=== PATIENT | female | born 1985 | race Caucasian/White ===

== ENCOUNTER 2023-04-07 14:11 | Outpatient (CLI) | payer OTHER, SELFPAY ==
--- NOTE | ~2023-04-07 | XR_ITS ---
XR hand RT min 3V DATE: 04/07/2023 14:33 INDICATION: Finger pain, especially at third proximal interphalangeal joint TECHNIQUE: 3 views COMPARISON: None FINDINGS: No fracture, dislocation, periosteal reaction or bone destruction, erosive change or chondr ocalcinosis. Joint spaces are preserved. IMPRESSION: Negative Reviewed, dictated and finalized at location A. IMPRESSION: Negative
== END 2023-04-07 14:12 | disposition home or self-care (01) ==
LOC: CHSIMG 14:18
PROVIDERS: PCP Physician Assistant; Visit Provider Physician Assistant
DX: M79.645 Pain in left finger(s) (principal)
CPT/HCPCS: 73130

== ENCOUNTER 2023-12-01 14:31 | Outpatient (CLI) | payer OTHER, SELFPAY ==
--- NOTE | ~2023-12-01 | XR_ITS ---
EXAM: XR foot RT min 3V DATE: 12/01/2023 14:50 HISTORY: 3-4th dorsum pain X 2 days, discoloration, NKI . COMPARISON: None available. FINDINGS: Normal mineralization. No fracture or dislocation. No lytic or blastic lesion. Mild hallux valgus. Mild degenerative change at the first MTP joint. No erosion or periosteal change. Linear 7 m m and 1 mm calcifications or radiopacities project in the soft tissues medial to the right second pro ximal phalange. IMPRESSION: Linear radiopaque foreign bodies versus soft tissue calcifications in the soft tissues medial to the right second proximal phalange. Correlate with pain/tenderness. Reviewed, dictated and finalized at location K. NIC PREPARATION TECHNICIAN IMPRESSION: Linear radiopaque foreign bodies versus soft tissue calcifications in the soft tissues medial to the right second proximal phalange. Correlate with pain/tende rness.
== END 2023-12-01 14:32 | disposition home or self-care (01) ==
LOC: CHSIMG 14:35
PROVIDERS: PCP Physician Assistant; Visit Provider Physician Assistant
DX: M79.671 Pain in right foot (principal)
CPT/HCPCS: 73630

== ENCOUNTER 2025-01-27 18:15 | Emergency (ER) | payer OTHER, SELFPAY ==
--- NOTE | ~2025-01-27 | XR_ITS ---
HISTORY: The lower leg injury, mid tb fib lac COMPARISON: None TECHNIQUE: 2 views of the tibia and fibula were performed FINDINGS: No acute or subacute fracture. Joint spaces are preserved and alignment is maintained. Soft tissues are unremarkable without radiopaque foreign body or significant calcification. Age-appropriate mineralization. IMPRESSION: No acute fracture or radiopaque foreign body, as detailed above. Reviewed, dictated and finalized at location A.
[2025-01-27 18:15] VITALS: BP 141/99; PULSE 103; RESP 20; TEMP 36.8; O2SAT 98
--- OUTSIDE RECORDS SUMMARY | 2025-01-27 18:19 | XMS_ITS | Encounter Summary ---
Author Organization [facility] Address [address] [place] [address] Phone Care Team Providers Care Bus And Trolley Dispatcher Name Role Phone Duc Gore Primary Care Provider [phone] Rubin Kessler MD Unavailable Keri Arreola APRN, HAM FACER Unavailable [phone]- [phone] Brad Thacker MD Unavailable [phone] Reason for Visit * Reason Comments Medication Refill Encounter Details Date Type Department Care Team (Late st Contact Info) Description 04/14/2020 Refill [facility] - [facility] [address] [place] [address] Brad Thacker MD [address] [place] [address] Medication Refill Social History Tobacco Use Types Packs/Day Years Used Date Smoking Tobacco: Every Day Cigarettes Last attempted to quit: 03/06/2019 Smokeless Tobacco: Never Comments:down to half a pack Alcohol Use Standard Drinks/Week Comments No 0 (1 standard drink = 0.6 oz pur e alcohol) Comments No Sex and Gender Information Value Date Recorded Sex Assigned at Female 05/19/2023 1:25 PM CDT Legal Sex Female 11:17 PM CDT Gender Identity Female 05/19/2023 1:25 PM CDT Sexual Orientation Not on file COVID-19 Exposure Response Date Recorded In the last month, have you been in contact with someone who was confirmed or suspected to have Coronavirus / COVID-19? No / Unsure 04/05/2020 2:51 PM CDT documented as of this encounter Plan of Treatment Upcoming Encounters Date Type Department Care Team (Late st Contact Info) Description 02/21/2025 9:00 AM CDT Telemedicine [facility] - [facility] - [place] [address] [place] [address] Keri Hunyh APRN, HAM FACER [address] [place] [address] 04/06/2025 9:00 AM CDT Procedure Visit [facility] - Neurology - [place] [address] [place] [address] Brad Thacker MD [address] [place] [address] documented as of this encounter Visit Diagnoses Not on filedocumented in this encounter Care Teams Bus And Trolley Dispatcher Relationship Specialty Start Date End Date Duc Gore PAC [address] [place] [address] PCP - General Physician Observation Nurse 10/21/16 Rubin Kessler MD [address] [place] [address] Consulting Physician Cardiovascular Disease - Cardiology 05/02/23 Keri Huynh APRN, HAM FACER [address] [place] [address] Nurse Practitioner Advanced Practice Nurse 07/30/22 Brad Thacker MD [address] [place] [address] Consulting Physician Neurology 03/21/23 documented as of this encounter
--- OUTSIDE RECORDS SUMMARY | 2025-01-27 18:19 | XMS_ITS | Encounter Summary ---
Author Organization [facility] Address [address] [place] [address] Phone Care Team Providers Care Musical Instrument Maker Name Role Phone Duc Gore Primary Care Provider [phone] Rubin Kessler MD Unavailable Keri Arreola APRN, PEEL OVEN TENDER Unavailable [phone]- [phone] Brad Thacker MD Unavailable [phone] Reason for Visit * Reason Comments Medication Refill Encounter Details Date Type Department Care Team (Late st Contact Info) Description 01/27/2025 Refill [facility] [address] [place] [id number] Keri Huynh, AUTO SERVICE REPRESENTATIVE, PEEL OVEN TENDER [address] [place] [address] Medication Refill Social History Tobacco Use Types Packs/Day Years Used Date Smoking Tobacco: Former Cigarettes Q uit: 07/06/2020 Smokeless Tobacco: Never Alcohol Use Standard Drinks/Week Comments No 0 (1 standard drink = 0.6 oz pur e alcohol) Comments No Sex and Gender Information Value Date Recorded Sex Assigned at Female 05/19/2023 1:25 PM CDT Legal Sex Female 11:17 PM CDT Gender Identity Female 05/19/2023 1:25 PM CDT Sexual Orientation Not on file documented as of this encounter Plan of Treatment Upcoming Encounters Date Type Department Care Team (Late st Contact Info) Description 02/21/2025 9:[address] [facility] - Neurology - [place] [address] [place] [address] Keri Huynh APRN, PEEL OVEN TENDER [address] [place] [address] 04/06/2025 9:00 AM CDT Procedure Visit [facility] - Neurology - [place] [address] [place] [address] Brad Thacker MD [address] [place] [address] documented as of this encounter Visit Diagnoses Diagnosis Chronic migraine without aura, with intractable migraine, so stated, with status migrainosus documented in this encounter Care Teams Musical Instrument Maker Relationship Specialty Start Date End Date Duc Gore PAC [address] [place] [address] PCP - General Physician Buckle Wire Inserter 10/21/16 Rubin Kessler MD [address] [place] [address] Consulting Physician Cardiovascular Disease - Cardiology 05/02/23 Keri Huynh APRN, PEEL OVEN TENDER [address] [place] [address] Nurse Practitioner Advanced Practice Nurse 07/30/22 Brad Thacker MD [address] [place] [address] Consulting Physician Neurology 03/21/23 documented as of this encounter
--- OUTSIDE RECORDS SUMMARY | 2025-01-27 18:19 | XMS_ITS | Encounter Summary ---
Author Organization [facility] Address [address] [place] [address] Phone Care Team Providers Care Brass Finisher Name Role Phone Duc Gore Primary Care Provider [phone] Rubin Kessler MD Unavailable Keri Arreola APRN, MACHINE STEMMER Unavailable [phone] Brad Thacker MD Unavailable Reason for Visit * Reason Comments Medication Refill Encounter Details Date Type Department Care Team (Late st Contact Info) Description 10/06/2023 Refill [facility] [address] [place] [address] Keri Huynh, DUAL RATE DEALER, MACHINE STEMMER [address] [place] [address] Medication Refill Social History Tobacco Use Types [...] on file documented as of this encounter Miscellaneous Notes * Telephone Encounter - Yue Mendoza RN - 10/07/2023 9:33 AM CST Medication failed the protocol, provider to review and approve the medication order if appropriate. Requested Prescriptions Pending Prescriptions Disp Refills cyclobenzaprine (FLEXERIL) 10 MG Tablet [Pharmacy Med Name: CYCLOBENZAPRINE 10 MG TABLET] 30 Tablet3 Sig: TAKE 1 TABLET BY MOUTH EVERY DAY AT NIGHT Not Delegated - Muscle Relaxants Protocol Failed - 10/06/2023 9:24 PM Failed - This refill cannot be delegated Passed - Visit with relevant provider in past 12 months or upcoming 90 days Recent Visits Date Type Provider Dept 09/12/23 Procedure Visit Brad Thacker MD [facility] Neurology [facility] 06/13/23 Procedure Visit Brad Thacker, [facility] 06/05/23 Office Visit Keri Huynh APRN, CNS [facility] 03/21/23 Procedure Visit Brad Thacker MD [facility] Neurology [facility] 01/28/23 Office Visit Keri Huynh APRN, BRAD [facility] Showing recent visits within past 365 days and meeting all other requirements Future Appointments Date Type Provider Dept 10/30/23 Appointment Keri Huynh APRN, CNS [facility] 12/12/23 Appointment Brad Thacker MD [facility] Showing future appointments within next 90 days and meeting all other requirements [employer] documented in this encounter Plan of Treatment Upcoming Encounters Date Type Department Care Team (Late st Contact Info) Description 02/21/2025 9:00 AM CDT Telemedicine [facility] - [facility]rology - [place] [address] [place] [address] Keri Huynh APRN, MACHINE STEMMER [address] [place] [address] 04/06/2025 9:00 AM CDT Procedure Visit [facility] - Neurology - [place] [address] [place] [address] Brad Thacker MD [address] [place] [address] documented as of this encounter Visit Diagnoses Diagnosis Muscle spasm Spasm of muscle documented in this encounter Care Teams Brass Finisher Relationship Specialty Start Date End Date Duc Gore, PAC [address] [place] [address] PCP - General Physician Ciaio Lumite Injector 10/21/16 Rubin Kessler MD [address] [place] [address] Consulting Physician Cardiovascular Disease - Cardiology 05/02/23 Keri Huynh APRN, MACHINE STEMMER [address] [place] [address] Nurse Practitioner Advanced Practice Nurse 07/30/22 Brad Thacker MD [address] [place] [address] Consulting Physician Neurology 03/21/23 documented as of this encounter
--- OUTSIDE RECORDS SUMMARY | 2025-01-27 18:19 | XMS_ITS | Encounter Summary ---
Author Organization [facility] Address [address] [place] [address] Phone Care Team Providers Care Documentation Engineer Name Role Phone Duc Gore Primary Care Provider [phone] Rubin Kessler MD Unavailable Keri Arreola APRN, ENTERPRISE SECURITY ARCHITECT Unavailable [phone] Brad Thacker MD Unavailable [phone] Reason for Visit * Reason Comments Medication Refill Encounter Details Date Type Department Care Team (Late st Contact Info) Description 03/12/2023 Refill [facility] - [facility] [address] [place] [phone] Keri Huynh, TURRET PUNCH OPERATOR, ENTERPRISE SECURITY ARCHITECT [address] [place] [address] Medication Refill Social History Tobacco Use Types [...] Exposure Response Date Recorded In the last 10 days, have yo u been in contact with someone who was confirmed or suspected to have Coronavirus/COVID-19? No / Unsure 02/20/2023 1:04 PM CDT documented as of this encounter Plan of Treatment Upcoming Encounters Date Type Department Care Team (Late st Contact Info) Description 02/21/2025 9:00 AM CDT [facility] [place] [address] [place] [address] Keri Huynh APRN, ENTERPRISE SECURITY ARCHITECT [address] [place] [address] 04/06/2025 9:00 AM CDT Procedure [facility] - [place] [address] [place] [address] Brad Thacker MD [address] [place] [address] documented as of this encounter Visit Diagnoses Diagnosis Low serum vitamin B12 documented in this encounter Care Teams Documentation Engineer Relationship Specialty Start Date End Date Duc Gore PAC [address] [place] [address] PCP - General Physician Compensation Programs Manager 10/21/16 Rubin Kessler MD [address] [place] [address] Consulting Physician Cardiovascular Disease - Cardiology 05/02/23 Keri Huynh APRN, ENTERPRISE SECURITY ARCHITECT [address] [place] [address] Nurse Practitioner Advanced Practice Nurse 07/30/22 Brad Thacker MD [address] [place] [address] Consulting Physician Neurology 03/21/23 documented as of this encounter
--- OUTSIDE RECORDS SUMMARY | 2025-01-27 18:19 | XMS_ITS | Encounter Summary ---
Author Organization [facility] Address [address] [place] [address] Phone Care Team Providers Care Risk Lead Name Role Phone Duc Gore Primary Care Provider [phone] Rubin Kessler MD Unavailable Keri Arreola APRN, FLIGHT NURSE Unavailable [phone] Brad Thacker MD Unavailable [phone] Reason for Visit * Reason Comments Medication Refill Encounter Details Date Type Department Care Team (Late st Contact Info) Description 05/27/2023 Refill [facility] - Neurology [facility] [address] [place] [id number] Keri Huynh, SIZING MACHINE OPERATOR, FLIGHT NURSE [address] [place] [address] Medication Refill Social History Tobacco Use Types [...] suspected to have Coronavirus/COVID-19? No / Unsure 05/19/2023 9:44 AM CDT documented as of this encounter Miscellaneous Notes * Telephone Encounter - Yue Mendoza RN - 05/27/2023 8:40 AM CDT Medication failed the protocol, provider to review and approve the medication order if appropriate. Requested Prescriptions Pending Prescriptions Disp Refills Aimovig 140 MG/ML Solution Auto-injector [Pharmacy Med Name: AIMOVIG 140 MG/ML AUTOINJECTOR] 1 mL 3 Sig: INJECT 1ML SUBCUTANEOUSLY EVERY 30 DAYS Not Delegated - Off Protocol Failed - 05/27/2023 8:29 AM Failed - This refill cannot be delegated Passed - Visit with relevant provider in past 12 months or upcoming 90 days Recent Visits Date Type Provider Dept 03/21/23 Procedure Visit Brad Thacker MD [facility] Neurology [facility] 01/28/23 Office Visit Keri Huynh APRN, BRAD [facility] Neurology [facility] 07/30/22 Office Visit Keri Huynh APRN, BRAD [facility] Neurology [facility] Showing recent visits within past 365 days and meeting all other requirements Future Appointments Date Type Provider Dept 06/05/23 Appointment Keri Huynh APRN, CNS [facility] Neurology [facility] 06/13/23 Appointment Brad Thacker MD [facility] Neurology [facility] Showing future appointments within next 90 days and meeting all other requirements documented in this encounter Plan of Treatment Upcoming Encounters Date Type Department Care Team (Late st Contact Info) Description 02/21/2025 9:00 AM CDT Telemedicine [facility] - Neurology - [place] [address] [place] [address] Keri Huynh APRN, FLIGHT NURSE [address] [place] [address] 04/06/2025 9:00 AM CDT Procedure Visit [facility] - Neurology - [place] [address] [place] [address] Brad Thacker MD [address] [place] [address] documented as of this encounter Visit Diagnoses Diagnosis Chronic migraine without aura, with intractable migraine, so stated, with status migrainosus documented in this encounter Care Teams Risk Lead Relationship Specialty Start Date End Date Duc Gore PAC [address] [place] [address] PCP - General Physician Manager Automotive 10/21/16 Rubin Kessler MD [address] [place] [address] Consulting Physician Cardiovascular Disease - Cardiology 05/02/23 Keri Huynh, SIZING MACHINE OPERATOR, FLIGHT NURSE [address] [place] [address] Nurse Practitioner Advanced Practice Nurse 07/30/22 Brad Thacker MD [address] [place] [address] Consulting Physician Neurology 03/21/23 documented as of this encounter
--- OUTSIDE RECORDS SUMMARY | 2025-01-27 18:19 | XMS_ITS | Data Portability ---
Author Organization [facility] KIPJojo Address [address] [place] [address] Care Team Providers Care [employer]ic [employer] Name Role Phone BISMARK GORE Primary Care Provider [phone] Assessment Encounter Date Assessment Date Assessment LastModified by Organization Details LastModified Time 09/18/2021 09/18/2021 care management assistant exam normal, first one in almost 4 years. DIscussed 3 mos amenorrhea. WIll do a 10 day course of Provera ( [facility] - in office today) Not available 09/18/2021 12:39:30 Plan of Treatment Reminders Order Date Submit Date Provider Last Modified By Organization Details Last Modified Time Details Appointments ANY 15 2024 10:15A Jessica Gore PA-C Not available Not available Not available ANY 15 2024 10:30A Jessica Gore PA-C Not available Not available Not available Lab CBC 2022 023 [facility], [address] [facility] [address], [place], [address], 02/10/2023 11:15:08 CMP, serum or plasma 2022 023 [facility], [address] [facility], [place], [address], 02/10/2023 11:15:07 lipid panel, serum 2022 023 [facility], [address] [facility], [place], [address], 02/10/2023 11:15:06 HbA1c (hemoglo bin A1c), blood 2022 023 SUMAYA In-Office Order, Internal Use Only DO Not Attach Compendium DO Not Attach Compendium, Do Not Delete/merge, [id number] 02/06/2023 15:55:54 vitamin B12, serum 2022 023 [facility], [address] [facility], [facility] [address], [place], [address], 02/07/2023 10:14:29 cytology report, thin prep, smear or scraping , cervical or vaginal 2020 021 [facility], [address] [facility], [place], [address], 09/22/2021 07:11:29 pregnanc y test, urine 2020 021 [email or web address] In-Office Order, Internal Use Only DO Not Attach Compendium DO Not Attach Compendium, Do Not Delete/merge, [id number] 09/18/2021 12:37:13 Referral cardiolo gist referral 2022 023 SUMAYA Velázquez MD, [address] [place], [address], 05/12/2023 17:06:33 physical therapis t referral 2019 020 SUMA[facility], [address] [facility], [facility] [address], [place], [address], 04/19/2020 17:04:38 Procedures None recorded . Surgeries None recorded . Imaging XR, foot [address] (Registration ), [address] [place], [address], 12/02/2023 11:44:00 XR, ankle 2019 020 SUMAYA Messer ([facility]) Scheduling, [address] [place], [address], 03/20/2020 15:33:11 Medication Orders hydroxyz ine HCl 25 mg tablet 2024 025 [facility]/Pharmacy #[id number], [address] [place], [address], 01/27/2025 11:49:55 buspiron e 5 mg tablet 2024 025 [facility]/Pharmacy #[id number], [address] [place], [address], 01/27/2025 11:49:56 ketorola c 60 mg/2 mL intramus cular solution 2023 024 [email or web address] Not available 12/01/2023 16:16:48 Provera 10 mg tablet 2020 021 [email or web address] Not available 12/01/2023 14:39:36 naproxen 500 mg tablet,d elayed release 2019 020 [email or web address] Not available 01/27/2025 11:29:20 Patient TargetsNo targets recorded. Patient Instructions Encounter Date Encounter Id Patient Instructions Last Modified By Organization Details Last Modified Time 09/18/2021 [id number] secondary amenorrhea: care instructions Not available 09/18/2021 12:09:20 12/01/2023 [id number] A healthy lifestyle: care instructions [email or web address] Not available 12/01/2023 15:06:34 Reason for Referral Physical Therapist Referral for Right Achilles tendinitis Referring Physician: [facility], Encounter Date: 03/20/2020 Behavioral Therapy Coordinator Referral for Mu ltiple premature ventricular complexes Referring Physician: [facility], Encounter Date: 02/06/2023 Results Created Date Observation Date Name Description Value Unit Range Abnormal Flag Note LastModifiedBy Organization Detail LastModifiedTime 09/18/20 21 09/21/2021 IGP, RFX APTIM A HPV ASCU diagnosis: Commen t NEGAT GEORGE FOR INTRA EPITH ELIAL LESIO N OR MALIG HERMELINDO . Not Available [facility] ([facility]) [address] [place], [address], 09/22/2021 07:11:29 09/18/20 21 09/21/2021 IGP, RFX APTIM A HPV ASCU specimen adequacy: Elbert t Satis facto ry for evalu ation . Endoc ervic al and/o r squam ous metap lasti c cells (endo cervi samina compo nent) are prese nt. Not Available [facility] ([facility]) [address] [place], [address], 09/22/2021 07:11:29 09/18/20 21 09/21/2021 IGP, RFX APTIM A HPV ASCU clinician provided ICD10: Elbert hackett Z01.4 19 Not Available [facility] ([facility]) [address] [place], [address], 09/22/2021 07:11:29 09/18/20 21 09/21/2021 IGP, RFX APTIM A HPV ASCU performed by: Toño Acosta (ASCP ) Not Available [facility] ([facility]) [address] [place], [address], 09/22/2021 07:11:29 09/18/20 21 09/21/2021 IGP, RFX APTIM A HPV ASCU . . Not Available [facility] ([facility]) [address] [place], [address], 09/22/2021 07:11:29 09/18/20 21 09/21/2021 IGP, RFX APTIM A HPV ASCU note: Elbert hackett The Pap smear is a scree emiliana test desig juan manuel to aid in the detec tion of marimar ligna nt and malig nant condi tions of the uteri ne cervi x. It is not a diagn ostic proce dure and shoul d not be used as the sole means of detec ting cervi samina cance r. Both false -posi tive and false -nega tive repor ts do occur . Not Available [facility] ([facility]) [address] [place], [address], 09/22/2021 07:11:29 09/18/20 21 09/21/2021 IGP, RFX APTIM A HPV ASCU test methodology: Commen t This liqui d based ThinP rep(R ) pap test was scree juan manuel with the use of an image guide d systjoseph m. Not Available [facility] ([facility]) [address] [place], [address], 09/22/2021 07:11:29 09/18/2009/21/2021 IGP, RFX APTIM A HPV ASCU . Commen t The HPV DNA refle x crite evangelist were not met with this speci men resul t there fore, no HPV testi ng was perfo rmed. Not Available [facility] ([facility]) [address] [facility], [place], [address], 09/22/2021 07:11:29 09/18/2009/18/2021 pregn lamar test, urine HCG negati ve Not Available In-Office Order Internal Use Only DO Not Attach Compendium DO Not Attach Compendium, Do Not Delete/merge, [id number] 09/18/2021 12:14:47 02/07/2002/07/2023 VITAM IN B12 vitamin B12 306 pg/mL 232-12 45 Not Available [facility] ([facility]) [address] [place], [address], 02/07/2023 10:14:29 02/07/20 23 02/07/2023 LIPID PANEL cholesterol, total 166.4 mg/dL 140.0- 200.0 Not Available [facility] ([facility]) [address] [place], [address], 02/10/2023 11:15:06 02/07/20 23 02/07/2023 LIPID PANEL triglyceride s 145 mg/dL <=150 Not Available [facility] ([facility]) [address] [facility] [place], [address], 02/10/2023 11:15:06 02/07/20 23 02/07/2023 LIPID PANEL HDL cholesterol 45.9 mg/dL 40.0-1 00.0 Not Available [facility] ([facility]) [address] [place], [address], 02/10/2023 11:15:06 02/07/20 23 02/07/2023 LIPID PANEL VLDL cholesterol samina 29.00 mg/dL 5.00-4 0.00 Not Available [facility] ([facility]) [address] [place], [address], 02/10/2023 11:15:06 02/07/20 23 02/10/2023 LIPID PANEL LDL chol calc (nih) 95.0 mg/dL 0.0-99 .0 Not Available [facility] ([facility]) [address] [place], [address], 02/10/2023 11:15:06 02/07/20 23 02/06/2023 COMP. METAB OLIC PANEL (14) glucose 85 mg/dL 65-99 ANION GP 15.0 mmol/ L N OSMOL 280.0 mOsM/ L N REFER ENCE RANGE : 275.0 -301. 0 Not Available [facility] ([facility]) [address] [place], [address], 02/10/2023 11:15:07 02/07/20 23 02/06/2023 COMP. METAB OLIC PANEL (14) BUN 11 mg/dL 8-26 Not Available [facility] ([facility]) [address] [place], [address], 02/10/2023 11:15:07 02/07/20 23 02/06/2023 COMP. METAB OLIC PANEL (14) creatinine 0.79 mg/dL 0.50-1 .40 Not Available [facility] ([facility]) [address] [place], [address], 02/10/2023 11:15:07 02/07/20 23 02/06/2023 COMP. METAB OLIC PANEL (14) eGFR 99 mL/mi n/1.7 3 >=60 Not Available [facility] ([facility]) [address] [facility], [place], [address], 02/10/2023 11:15:07 02/07/20 23 02/06/2023 COMP. METAB OLIC PANEL (14) BUN/creatini ne ratio 13.5 Not Available [facility] ([facility]) [address] [facility], [place], [address], 02/10/2023 11:15:07 02/07/20 23 02/06/2023 COMP. METAB OLIC PANEL (14) sodium 141.0 mmol/ L 136.0- 144.0 Not Available [facility] ([facility]) [address] [place], [address], 02/10/2023 11:15:07 02/07/20 23 02/06/2023 COMP. METAB OLIC PANEL (14) potassium 4.1 mmol/ L 3.5-5. 3 Not Available [facility] ([facility]) [address] [place], [address], 02/10/2023 11:15:07 02/07/20 23 02/06/2023 COMP. METAB OLIC PANEL (14) chloride 103 mmol/ l 101-11 1 Not Available [facility] ([facility]) [address] [place], [address], 02/10/2023 11:15:07 02/07/20 23 02/06/2023 COMP. METAB OLIC PANEL (14) carbon dioxide, total 27.1 mmol/ L 21.0-3 2.0 Not Available [facility] ([facility]) [address] [facility], [place], [address], 02/10/2023 11:15:07 02/07/20 23 02/06/2023 COMP. METAB OLIC PANEL (14) calcium 9.5 mg/dL 8.2-10 .0 Not Available [facility] ([facility]) [address] [facility], [place], [address], 02/10/2023 11:15:07 02/07/20 23 02/06/2023 COMP. METAB OLIC PANEL (14) protein, total 6.7 g/dL 6.7-8. 2 Not Available [facility] ([facility]) [address] [facility], [place], [address], 02/10/2023 11:15:07 02/07/20 23 02/06/2023 COMP. METAB OLIC PANEL (14) albumin 4.3 g/dL 3.5-5. 5 Not Available [facility] ([facility]) [address] [facility], [place], [address], 02/10/2023 11:15:07 02/07/20 23 02/06/2023 COMP. METAB OLIC PANEL (14) globulin, total 2.4 g/dL 1.5-4. 5 Not Available [facility] ([facility]) [address] [facility], [place], [address], 02/10/2023 11:15:07 02/07/20 23 02/06/2023 COMP. METAB OLIC PANEL (14) A/G ratio 1.8 Not Available [facility] ([facility]) [address] [facility] [place], [address], 02/10/2023 11:15:07 02/07/20 23 02/06/2023 COMP. METAB OLIC PANEL (14) bilirubin, total 0.2 mg/dL 0.0-1. 2 Not Available [facility] ([facility]) [address] [facility] [place], [address], 02/10/2023 11:15:07 02/07/20 23 02/06/2023 COMP. METAB OLIC PANEL (14) alkaline phosphatase 81.9 IU/L 42.0-1 21.0 Not Available [facility] ([facility]) [address] [facility], [place], [address], 02/10/2023 11:15:07 02/07/20 23 02/06/2023 COMP. METAB OLIC PANEL (14) AST (SGOT) 14.8 U/L 10.0-4 2.0 Not Available [facility] ([facility]) [address] [facility] [place], [address], 02/10/2023 11:15:07 02/07/20 23 02/06/2023 COMP. METAB OLIC PANEL (14) ALT (SGPT) 10.5 U/L 10.0-6 0.0 Not Available [facility] ([facility]) [address] [facility] [place], [address], 02/10/2023 11:15:07 02/07/20 23 02/06/2023 CBC, PLATE LET, NO DIFFE RENTI AL WBC 8.5 K/uL 3.4-10 .8 Not Available [facility] ([facility]) [address] [facility] [place], [address], 02/10/2023 11:15:08 02/07/20 23 02/06/2023 CBC, PLATE LET, NO DIFFE RENTI AL RBC 4.6 M/uL 4.2-5. 4 Not Available [facility] ([facility]) [address] [facility] [place], [address], 02/10/2023 11:15:08 02/07/20 23 02/06/2023 CBC, PLATE LET, NO DIFFE RENTI AL hemoglobin 13.4 g/dL 11.5-1 5.5 Not Available [facility] ([facility]) [address] [facility], [place], [address], 02/10/2023 11:15:08 02/07/20 23 02/06/2023 CBC, PLATE LET, NO DIFFE RENTI AL hematocrit 41.4 % 36.0-4 8.0 Not Available [facility] ([facility]) [address] [facility], [place], [address], 02/10/2023 11:15:08 02/07/20 23 02/06/2023 CBC, PLATE LET, NO DIFFE RENTI AL MCV 90 fL 80-95 Not Available [facility] ([facility]) [address] [place], [address], 02/10/2023 11:15:08 02/07/20 23 02/06/2023 CBC, PLATE LET, NO DIFFE RENTI AL MCH 29 pg 27-32 Not Available [facility] ([facility]) [address] [facility], [place], [address], 02/10/2023 11:15:08 02/07/20 23 02/06/2023 CBC, PLATE LET, NO DIFFE RENTI AL MCHC 32 g/dL 32-36 Not Available [facility] ([facility]) [address] [place], [address], 02/10/2023 11:15:08 02/07/20 23 02/06/2023 CBC, PLATE LET, NO DIFFE RENTI AL RDW 13.6 % 11.5-1 4.5 Not Available [facility] ([facility]) [address] [place], [address], 02/10/2023 11:15:08 02/07/2002/06/2023 CBC, PLATE LET, NO DIFFE RENTI AL platelets 359 K/uL 155-37 9 MPV 10.6 FL 8.9-1 2.7 N Not Available [facility] ([facility]) [address] [facility], [address], 02/10/2023 11:15:08 02/07/20 23 02/06/2023 CBC, PLATE LET, NO DIFFE RENTI AL NRBC 0 % Not Available [facility] ([facility]) [address] [facility], [place], [address], 02/10/2023 11:15:08 02/07/20 23 02/10/2023 CARDI OVASC ULAR REPOR T interpretati on Note Suppl ement al repor t is avail able. Not Available [facility] ([facility]) [address] [facility], [place], [address], 02/10/2023 11:15:08 02/07/20 23 02/10/2023 CARDI OVASC ULAR REPOR T pdf . Not Available [facility] ([facility]) [address] [facility], [place], [address], 02/10/2023 11:15:08 02/07/20 23 02/06/2023 HbA1c (hemo globi n A1c), blood HbA1c 5.0 Not Available In-Office Order Internal Use Only DO Not Attach Compendium DO Not Attach Compendium, Do Not Delete/merge, [id number] 02/06/2023 15:32:15 03/20/20 20 03/20/2020 XR, ankle No observ ation record ed. [address], [address], 03/20/2020 17:34:51 04/07/20 23 04/07/2023 [facility] [address] [place], [address], 04/09/2023 11:36:30 12/01/19 24 12/01/2023 XR, foot No observ [facility]ion [facility] ed[facility] [address] [place], [address], 12/02/2023 14:55:28 Result Notes None recorded. Problems Name Problem SNOMED Code Status Onset Date Resolution Date Notes Provider Name and Address Organization Details Recorded Time Menorrhagia [id number] Active Guzman Joiner MD Attn: Daljit meza,[address], [place], [address], [facility] 6 11:07:09 Problem Notes None recorded. Procedures Surgical History Date Name Laterality Status Provider Name and Address Organization Details Recorded Time 09/18/2021 Date of Last Pap Smear completed Paulina Amanda [facility] 09/24/2021 09:22:27 Imaging Results Imaging Date Name Status LastModified by Organiz ation Details LastModified Time 03/20/2020 XR, ankle completed [address], [address], 03/20/2020 17:34:51 04/07/2023 XR, hand completed [facility] [address] [place], [address], 04/09/2023 11:36:30 12/01/2023 XR, foot completed [facility] [address] [place], [address], 12/02/2023 14:55:28 Procedure Notes None recorded. Medical Equipment None Reported. Allergies Allergen ID Allergen Name Allergen Category Reaction Reaction Severity Criticality Documentation Date Start Date Code Code System Note Provider Name and Address Organization Details Recorded Time Product containin g penicilli n (product) medicatio n hives severe Not available 11/11/2016 [id number] SNOMED Not Available Not Available Not Available Medications Name Sig Start Date Stop Date Status Note LastModified by Organization Details LastModified Time cyclobenzap rine 10 mg tablet TAKE 1 TABLET BY MOUTH EVERY DAY AT NIGHT active Not Available Not Available No t Available medroxyprog esterone 10 mg tablet Take 1 tablet every day by oral route for 10 days. 12/01 completed Not Available Not Available Not Available buspirone 5 mg tablet Take 1 tablet twice a day by oral route for 90 days. 2024 active Not Available Not Available Not Avai lable clindamycin HCl 300 mg capsule 12/01 completed Not Available Not Available Not Available sumatriptan 100 mg tablet 11/11 completed Not Available Not Available Not Available hydrocodone 5 mg-acetamin ophen 325 mg tablet 03/20 completed Not Available Not Available Not Available ondansetron HCl 8 mg tablet Take 1 tablet every 12 hours by oral route for 10 days. 07/10 completed Not Available Not Available Not Available ondansetron HCl 4 mg tablet 07/10 completed Not Available Not Available Not Available rizatriptan 10 mg tablet 03/20 completed Not Available Not Available Not Available clindamycin HCl 150 mg capsule 03/20 completed Not Available Not Available Not Available topiramate 25 mg tablet 11/11 completed Not Available Not Available Not Available acetaminoph en 300 mg-codeine 30 mg tablet 03/20 completed Not Available Not Available Not Available ciprofloxac in 500 mg tablet 11/11 completed Not Available Not Available Not Available sulfamethox azole 800 mg-trimetho prim 160 mg tablet Take 1 tablet every 12 hours by oral route for 10 days. 03/20 completed Not Available Not Available Not Available tramadol 50 mg tablet 03/20 completed Not Available Not Available Not Available propranolol 10 mg tablet 03/20 completed Not Available Not Available Not Available propranolol 40 mg tablet 02/15 completed Not Available Not Available Not Available amitriptyli ne 25 mg tablet 03/20 completed Not Available Not Available Not Available metoclopram mac 5 mg tablet 11/11 completed Not Available Not Available Not Available oseltamivir 75 mg capsule Take 1 capsule twice a day by oral route for 5 days. 03/20 completed Not Available Not Available Not Available naproxen 500 mg tablet,ilya yed release Take 1 tablet twice a day by oral route for 30 days. 2019 active PRN Not Available Not Available Not Avai lable butalbital- aspirin-caf feine 50 mg-325 mg-40 mg capsule 11/11 completed Not Available Not Available Not Available hydroxyzine HCl 25 mg tablet Take 1 tablet 3 times a day by oral route as needed for 30 days. 04/24/ 2025 active Not Available Not Available Not Avai lable levofloxaci n 750 mg tablet Take 1 tablet every day by oral route for 5 days. 02/15 completed Not Available Not Available Not Available methylpredn isolone 4 mg tablets in a dose pack TAKE 6 TABLETS ON DAY 1 DIRECTED ON PACKAGE AND DECREASE BY 1 TAB EACH DAY FOR A TOTAL OF 6 DAYS 01/27 completed Not Available Not Available Not Available ketorolac 60 mg/2 mL intramuscul ar solution Inject 2 mL by intramusc ular route. 2023 active Not Available Not Available Not Avai lable ondansetron 4 mg disintegrat ing tablet active Not Available Not Available N ot Available naratriptan 2.5 mg tablet TAKE 1 TABLET BY MOUTH ONCE NEEDED MIGRAINE. TAKE AT ONSET OF HEADACHE, REPEAT IN 4 HRS IF NEEDED 01/27 completed Not Available Not Available Not Available medroxyprog esterone 150 mg/mL intramuscul ar suspension 11/11 completed Not Available Not Available Not Available metoclopram mac 10 mg tablet 11/11 completed Not Available Not Available Not Available Ventolin HFA 90 mcg/actuati on aerosol inhaler Inhale 2 puffs 4 times a day by inhalatio n route as needed for 30 days. 03/20 completed Not Available Not Available Not Available Sprintec (28) 0.25 mg-0.035 mg tablet TAKE 1 TABLET BY MOUTH EVERY DAY 03/20 completed Not Available Not Available Not Available topiramate 50 mg tablet TAKE 1 TABLET BY MOUTH TWICE A DAY 01/27 completed Not Available Not Available Not Available Botox 200 unit injection active Not Available Not Available No t Available Aimovig Autoinjecto r 70 mg/mL subcutaneou s auto-inject or 03/20 completed Not Available Not Available Not Available Aimovig Autoinjecto r 140 mg/mL subcutaneou s auto-inject or INJECT 1ML SUBCUTANE OUSLY EVERY 30 DAYS active Not Available Not Available No t Available Ubrelvy 50 mg tablet TAKE 1 TABLET BY MOUTH ONCE NEEDED FOR OTHER (MIGRAINE ) FOR UP TO 1 DOSE. active Not Available Not Available No t Available Vitals Date Recorded Body weight Systolic blood pressure Diastolic blood pressure Provider Name and Address Organization Details Last Updated DateTime 09/18/2021 58372.79 g 128 mm[Hg] 80 mm[Hg] SALMA Castrejon [facility] 09/18/2021 11:51:17 Date Recorded Body weight Body mass index (BMI) Body height Oxygen saturation Oxygen saturation in Arterial blood by Pulse oximetry Heart rate Body temperature Systolic blood pressure Diastolic blood pressure Provider Name and Address Organization Details Last Updated DateTime 3 51195.4 5 g 25.9 kg/m2 162.56 cm 98 % 98 % 81 /min 98.2 [degF] 145 mm[Hg] 91 mm[Hg] Olga kevin MA [facility] 3 15:21:12 Date Recorded Body height Body mass index (BMI) Body weight Oxygen saturation Oxygen saturation in Arterial blood by Pulse oximetry Heart rate Systolic blood pressure Diastolic blood pressure Provider Name and Address Organization Details Last Updated DateTime 4 162.56 cm 25.4 kg/m2 63174.6 7 g 98 % 98 % 74 /min 128 mm[Hg] 84 mm[Hg] Gabriela Joiner MA [facility] 4 14:42:35 Date Recorded Body height Body mass index (BMI) Body weight Respiratory rate Oxygen saturation Oxygen saturation in Arterial blood by Pulse oximetry Heart rate Systolic blood pressure Diastolic blood pressure Provider Name and Address Organization Details Last Updated DateTime 5 162.56 cm 25.2 kg/m2 72670.3 6 g 18 /min 100 % 100 % 86 /min 116 mm[Hg] 80 mm[Hg] Lily Pereira [facility] 5 11:31:50 Social History Question Answer Notes LastModified by Organizat ion Details LastModified Time Tobacco Smoking Status Former Smoker Quit 2019 SALMA Castrejon null, [facility] 09/18/2021 11:52:42 What Is Your Level Of Alcohol Consumption? Occasional Rarely Information not available 01/27/2025 What Is Your Level Of Caffeine Consumption? Heavy Information not available 02/15/2019 In The 14 Days Before Symptom Onset, Have You Had Close Contact With A Laboratory-rahul ornelased COVID-19 While That Case Was Ill? No Information not available 09/18/2021 In The 14 Days Before Symptom Onset, Have You Had Close Contact With A Person Who Is Under Investigation For COVID-19 While That Person Was Ill? No Information not available 09/18/2021 Have You Been To An Area Known To Be High Risk For COVID-19? No Information not available 09/18/2021 What Type Of Diet Are You Following? REGULAR Information not available 02/15/2019 Which Illicit Or Recreational Drugs Have You Used? None Information not available 02/15/2019 What Was The Date Of Your Most Recent Tobacco Screening? 01/27/2025 Information not available 01/27/2025 How Many Children Do You Have? 1 Information not available 02/20/2015 What Is Your Current Pack Years? 10-19packyear s Information not available 09/18/2021 What Is Your Relationship Status? Single Information not available 02/20/2015 Do You Have Smoke And Carbon Monoxide Detectors In Your Home? Yes Information not available 02/06/2023 At What Age Did You Start Smoking Tobacco? 18 Information not available 09/18/2021 Are You Passively Exposed To Smoke? Yes Information not available 02/06/2023 How Much Tobacco Do You Smoke? No Information not available 09/18/2021 Do You Feel Stressed (tense, Restless, Nervous, Or Anxious, Or Unable To Sleep At Night)? [id number] Information not available 02/06/2023 Do You Use Any Illicit Or Recreational Drugs? Yes Marijuana Information not available 02/06/2023 Has Tobacco Cessation Counseling Been Provided? No Information not available 09/18/2021 On What Date Was Tobacco Cessation Counseling Provided? 01/27/2025 Information not available 01/27/2025 How Many Years Have You Smoked Tobacco? 15 Information not available 02/15/2019 Do You Or Have You Ever Used Any Other Forms Of Tobacco Or Nicotine? No Information not available 09/18/2021 Sex: Female Functional Status None recorded. Mental Status None recorded. Family History Nothing Reported. Medical History Condition Response Coronary Artery Disease N Kidney Cyst N Blood Diseases N Hyperthyroidism N Blood Transfusion N MRSA N Blood disorders N Emphysema N Blood Clots N COPD N Depression N Pneumonia N Premature N Peripheral Arterial Disease N Edema N TIA N Headaches/Migraines N Anxiety Disorder N Obesity N Infertility N Polyps N Acid Reflux (GERD) N Hematuria N Stroke N Neck Injury N Polio N Hospital Admission other than N Neurologic Disorder N Other Sleep Disorders N Rheumatoid Arthritis N Fibromyalgia N Abdominal Aortic Aneurysm Repair N Kidney Disease N Heart Conditions N Heart Disease/Heart Problems N Hospitalizations N Brain Tumors N Acne N Skin Problems N Eating Disorder N Meningitis N Constipation N Tuberculosis N Cerebral Palsy N Myocardial Infarction N Asthma N Substance Abuse N Peripheral Vascular Disease N Vertigo N Sleep Disorder N Cirrhosis N Pulmonary Embolism N Chicken Pox N Hematologic Disease N Flomax Use Past or Present N Anxiety/Depression N Thyroid Disease N Colon Cancer N Lung Disease N Glaucoma N Developmental or Behavioral Disorders N Bipolar N Pacemaker N Diverticulitis/Diverticulosis N Orthopedic Problems N Anesthesia Complications N Orthotics N Head Injury/Concussion N Congenital Anomalies N Murguia Bite N Chronic Kidney Disease N Endometriosis N Liver Disease N Schizophrenia N Dialysis N Speech Delay N Chronic Obstructive Pulmonary Disease N Parkinson's Disease N Thyroid Problems N GI Problems N Developmental Delay N Anemia N Multiple Sclerosis N Immune System Disorder N Colon Polyps N Heart Attack (MS) N Diabetes N Cardiomyopathy N Blood Transfusions N Heart Problems/Murmur N Eye Trauma N Congestive Heart Failure (CHF) N Valvular Heart Disease N Hyperlipidemia N Double Vision N Abuse/Domestic Violence N Hepatitis B N Lupus N Epilepsy/Seizures N Reflux/GERD N Aneurysm N Heart Disease N Bronchitis N Pre-Eclampsia N Hypertension N Heart Failure N Other N Gout N High Blood Pressure N Atrial Fibrillation N Kidney Stones N Head Trauma/Injury N Congenital Heart Disease N Spine Problems N Gastrointestinal Disease N Lung Mass N Sinusitis N Obstructive Sleep Apnea N Muscle, Joint, or Bone Problems N Autoimmune disease N Vision or Eye Problems N Arthritis N Blood Clot N Cancer N Seasonal allergies N Leg or Foot Ulcers N Raynaud's Disease N Aortic Aneurysm N Arrhythmia N Headaches Y Heart Problems N Ambloypia N Ear or Hearing Problems N Hyperparathyroidism N Migraines N Artificial Joints N Kidney or Bladder Problems N NSAID Use N Encephalitis N PTSD N Ulcers N Prostate Hypertrophy N Bleeding Disorder N AIDS/HIV N Urinary Tract Infection N Back Problems N Allergies N Atrial Flutter N GERD/Reflux N Hepatitis N Autism Spectrum Disorder (ASD) N Breast Cancer N Hernia N Hypothyroidism N Breast Problem N Genitourinary Disease N Deep Vein Thrombosis N Varicose Veins N Cystic Fibrosis N Hearing Loss N Developmental Problems N Carotid Disease N Vitamin D Deficiency N ADHD N Bladder or Kidney Problems N High Cholesterol N Meniers N Valvular Abnormalities N Psychiatric/Mental Health Condition N Organ Transplant N Foot Deformity N Allergies/Hayfever N Dyslipidemia N Hyponatremia N Diabetic Eye Disease N Osteoporosis/Osteopenia N Back Pain N Proteinuria N Mental Illness N Neurological Problems N Ovarian Cancer N Bedwetting N Seizures/Epilepsy N Kidney Failure N Ocular trauma N Diverticulitis N Dementia N Sleep Apnea N Mental Problems N Warfarin Management N Osteoporosis N Gynecological History Statement/Question Response Abnormal Pap N Flow Heavy Date of LMP Sexually Active? N Menses Monthly Y STIs/STDs N Date of Last Pap Smear 09/18/2021 Sexual Problems? N Current Control Method None LMP Approximate Obstetrics History GPAL:G 1 P 1 0 0 1 Type Value Full Term 1 Living 1 Total 1 Past Encounters Encounter ID Performer Location Encounter Start Date Encounter Closed Date Diagnosis/Indication Diagnosis SNOMED-CT Code Diagnosis ICD10 Code Diagnosis Note [id number] NAHEED Zelaya ([place] [address]) [address] [facility] [place] [address] 02/20/2015 15:37:12 02/21/2015 11:32:36 Menorrhagia [id number] NAHEED Zelaya ([place] [address]) [address] [facility] [place] [address] 02/22/2015 13:53:39 02/22/2015 14:56:47 Contraception care management [id number] Jenna Moreno ([place] [address]) [address] [facility] [place] [address] 04/24/2015 11:15:40 04/24/2015 12:28:03 Gynecologic examination [id number] NAHEED Zelaya ([place] [address]) [address] [facility] [place] [address] 05/17/2015 14:09:45 05/17/2015 14:24:05 Contraception care management [id number] MD Jenna Godoy ([place] [address]) [address] [facility] [place] [address] 11/13/2015 10:35:45 11/13/2015 12:28:45 Menorrhagia 024316099 N92.0 [id number] MD Jenna Godoy ([facility]) [address] [facility] [place] [address] 09/24/2016 14:43:31 09/24/2016 15:42:13 Gynecologic examination 13085438 Z01.419 Irregular periods 293731 07 N92.6 [id number] MAIRA Yost [address] [place] [address] 11/11/2016 15:33:51 11/11/2016 16:47:50 Influenza caused by Influenza A virus 171922218 J09.X2 Nausea and vomiting 1693 1999 R11.2 [id number] MAIRA Yost [address] [place] [address] 07/10/2017 15:17:58 07/10/2017 17:13:41 Acute bronchitis 34618434 J20.0 [id number] MD Jenna Godoy ([place] [address]) [address] [facility] [address] [place], [place] [address] [address] 11/27/2017 11:53:10 11/27/2017 15:44:48 Gynecologic examination 71612087 Z01.419 Body mass index 20-24 - normal 308923060 Z68.20 [id number] MAIRA Yost [address] [place] [address] 02/15/2019 11:08:50 02/15/2019 12:36:08 Diabetes mellitus screening 674358660 Z13.1 Adult [facility] examination 620924256 Z00.00 Migraine without aura 56 103441 G43.009 Pain in right knee 95406 31667 43991 M25.162 [id number] MAIRA Yost [address] [place] [address] 03/20/2020 09:39:20 03/20/2020 15:10:03 Right Achilles tendinitis [id number] [id number] M76.61 [id number] MD Jenna Godoy 14 OB [address] [facility] [address] [place], [place] [address], [place] [address] 09/18/2021 11:13:35 09/19/2021 06:32:07 Gynecologic examination 95307375 Z01.419 Amenorrhea 70924323 N91. 2 [id number] Bismark Gore PA-C [facility] [address] [place] [address] 02/06/2023 15:09:05 02/07/2023 10:33:57 Adult health examination 244837015 Z00.00 Multiple p remature ventricular complexes 294430440 I49.3 [id number] Bismark Gore PA-C [facility] [address] [place] [address] 12/01/2023 14:33:49 12/02/2023 11:44:00 Pain in right foot 6951214691 90096 M79.671 Overweight 219134086 E66 .3 [id number] Bismark Gore PA-C [facility] [address] [place] [address] 01/27/2025 11:08:21 01/27/2025 11:51:49 Mixed anxiety and depressive disorder 349688785 F41.8 follow up in 2-3 weeks Health Concerns Section Related Observation LastModified by Organization Detai ls LastModified Time None Recorded Concern Status LastModified by Organization Details LastModified Time None Recorded Advance Directives Directive None Recorded Payers Encounter Date Sequence Insurance Name Policy Number Policy Cespedes Covered Member ID Cespedes Member ID Guarantor Name 03/20/2020 1 [facility] (MEDICAID HMO) [id number] Shara Yaoer [id number] Shara Jenkins Nicolas 09/18/2021 1 MEDICA[place]: [place] [employer] [place] Shara Yaoer [id number] Shara Jenkins Nicolas 09/18/2021 1 R [id number] Vinh Jarrett [id number] Shara Yaoer 02/06/2023 2 [facility] (MEDICAID REPLACEMENT - HMO) [id number] Shara Yaoer [id number] Shara Yaoer 02/06/2023 1 [facility] (PPO) [id number] Vinh Jarrett [id number] Shara Yaoer 12/01/2023 2 [facility] (MEDICAID REPLACEMENT - HMO) [id number] Shara Yaoer [id number] Shara Nicolas 12/01/2023 1 [employer] BENEFIT PLAN MANAGEMENT (PPO) [id number] Vinh Jarrett [id number] Shara Nicolas 01/27/2025 1 [employer] [employer]NAGEMENT (PPO) [id number] Vinh Kolby [id number] Shara Nicolas Notes Date Note Type Note Provider Name and Address Organization Details Recorded Time 03/20/2020 text/html hurt ankle worki ng out doing deadlifts...tweake d the back of rt ankle...swollen and scant bruising... Bismark Gore PA-C Attn: [address] [place], [address], [facility] 03/20/2020 10:37:00 09/18/2021 text/html Annual GYNReport ed bypatient.Menstrua l cycle:Normal menses Urinary symptoms:No hematuria; No incontinence Vulva:No genital lesion Vagina:Normal vaginal discharge Breast:No breast pain; No breast lump; No nipple discharge Sexual complaints:No sexual complaints; No pain during intercourse; Normal libido Menopausal Symptoms:No menopausal symptoms; Normal vaginal lubrication Psychological symptoms:No depression; No anxiety; No PMDD no period since 06/09/21not seen since 11/2017 Guzman Joiner MD Attn: [address] [place], [address], [facility] 09/18/2021 12:39:47 02/06/2023 text/html here for a physical...needs b12 per neurologist...hx of migraines...sister at 42 of cardiac arrythmia Bismark Gore PA-C Attn: [address] [place], [address], [facility] 02/06/2023 15:35:06 12/01/2023 text/html rt foot pain spontaneous had been drinking but still doesnt recall acute injury Bismark Gore PA-C Attn: [address] [facility] [place], [address], [place] [facility] 12/01/2023 15:08:35 01/27/2025 text/html has lost a large number of family members...recently her cat had a similar experience and triggered a panic attacks...hx of anxiety anyway.. Bismark Gore PA-C Attn: Accounting[address], [place], [address], [facility] 01/27/2025 11:51:46 OBGyn Episode Ob Episode Information Episode Created Date Number of Fetuses Patient Bloodtype Patient rh Status Prepregnancy Weight lbs Domestic Partner Domestic Partner Phone Father Name Management And Budget Analyst Status 02/21/20 15 1 CLOSED Fetus Data First Name Last Name Admitted to NICU Weight (g) Sex Living Outcome Pediatric Complications Fetus ID Race Codes Race Delivery Type 2921.13 248 M [id number] Vaginal Lasha Calculation Initial Lasha Date Initial Exam Date Initial Exam Provider Initial Ultrasound Date Last Menstrual Period Date Ultra Sound Weeks Gestation 0 Eighteen To Twenty Week Lasha Update Ultra Sound Date Fundal Height At Umbil Quickening Date Ultra Sound Latest Weeks Gestation Final Lasha Confirmed By Final Lasha Confirmed Date Final Lasha Date Ultra Sound Latest Days Gestation 0 0 Menstrual History Last Menstrual Date Menses Monthly On Bcp Conception Prior Menses Frequency Hcg Plus Date Menarche Onset Age Delivery Information Delivery Date Delivery Type Labor Anesthesia Weeks Gestation Incision Type Labor Labor Length Hrs Delivered By Post Complications Tubal Sterilization Discharge Date Comments 7 Regional-Ep idural 37 HEB Discharge Information Feeding Method Contraceptive Method Maternal HG B and HCT Levels
--- OUTSIDE RECORDS SUMMARY | 2025-01-27 18:19 | XMS_ITS | Encounter Summary ---
Author Organization [facility] Address [address] [place] [address] Phone Care Team Providers Care Basic Acoustic Analyst Name Role Phone Dcu Gore Primary Care Provider [phone] Rubin Kessler MD Unavailable Keri Arreola APRN, HYDRATE THICKENER OPERATOR Unavailable [phone]- [phone] Brad Thacker MD Unavailable [phone] Reason for Visit * Reason Comments Medication Refill Encounter Details Date Type Department Care Team (Late st Contact Info) Description 05/27/2023 Refill [facility] - Neurology [facility] [address] [place] [address] Brad Thacker MD [address] [place] [address] Medication Refill Social History Tobacco [...] Delegated - Muscle Relaxants Protocol Failed - 05/27/2023 8:29 AM Failed - This refill cannot be delegated Passed - Visit with relevant provider in past 12 months or upcoming 90 days Recent Visits Date Type Provider Dept 03/21/23 Procedure Visit Brad Thacker MD [facility] Neurology [facility] 01/28/23 Office Visit Keri Huynh APRN, BRAD [facility] Neurology [facility] 07/30/22 Office Visit Keri Huynh APRN, BRAD [facility] Neurology [facility] Showing recent visits within past 365 days and meeting all other requirements Future Appointments Date Type Provider Dept 06/05/23 Appointment Keri Huynh APRN, CNS [facility] Neurology [facility] 06/13/23 Appointment Brad Thacker MD [facility] Neurology [facility] Showing future appointments within next 90 days and meeting all other requirements documented in this encounter Plan of Treatment Upcoming Encounters Date Type Department Care Team (Late st Contact Info) Description 02/21/2025 9:00 AM CDT Telemedicine [facility] - Neurology - [place] [address] [place] [address] Keri Huynh APRN, HYDRATE THICKENER OPERATOR [address] [place] [address] 04/06/2025 9:00 AM CDT Procedure Visit [facility] - Neurology - [place] [address] [place] [address] Brad Thacker MD [address] [place] [address] documented as of this encounter Visit Diagnoses Diagnosis Muscle spasm Spasm of muscle documented in this encounter Care Teams Basic Acoustic Analyst Relationship Specialty Start Date End Date Duc Gore, PAC [address] [place] [address] PCP - General Physician Tree And Shrub Worker 10/21/16 Rubin Kessler MD [address] [place] [address] Consulting Physician Cardiovascular Disease - Cardiology 05/02/23 Keri Huynh APRN, HYDRATE THICKENER OPERATOR [address] [place] [address] Nurse Practitioner Advanced Practice Nurse 07/30/22 Brad Thacker MD [address] [place] [address] Consulting Physician Neurology 03/21/23 documented as of this encounter
--- OUTSIDE RECORDS SUMMARY | 2025-01-27 18:19 | XMS_ITS | Encounter Summary ---
Author Organization [facility] Address [address] [place] [address] Phone Care Team Providers Care Spa Concierge Name Role Phone Duc Gore Primary Care Provider [phone] Rubin Kessler MD Unavailable Keri Arreola APRN, WASH DRILLER HELPER Unavailable [phone] Brad Thacker MD Unavailable Reason for Visit * Reason Comments Medication Refill Encounter Details Date Type Department Care Team (Late st Contact Info) Description 03/11/2023 Refill [facility] - [facility]rology [facility] [address] [place] [address] Keri Huynh, ROBOTICS MECHANIC, WASH DRILLER HELPER [address] [place] [address] Medication Refill Social History Tobacco Use Types [...] PM CDT documented as of this encounter Miscellaneous Notes * Telephone Encounter - Yue Mendoza RN - 03/11/2023 8:15 AM CDT Medication failed the protocol, provider to review and approve the medication order if appropriate. Requested Prescriptions Pending Prescriptions Disp Refills Topiramate 50 MG Tablet [Pharmacy Med Name: TOPIRAMATE 50 MG TABLET] 180 Tablet 1 Sig: TAKE 1 TABLET BY MOUTH TWICE A DAY Not Delegated - Anticonvulsants Excluding Benzodiazepines Protocol Failed - 03/11/2023 12:01 AM Failed - This refill cannot be delegated Passed - Visit with relevant provider in past 12 months or upcoming 90 days Recent Visits Date Type Provider Dept 01/28/23 Office Visit Keri Huynh APRN, BRAD [facility] 07/30/22 Office Visit Keri Huynh APRN, WASH DRILLER HELPER [facility] Showing recent visits within past 365 days and meeting all other requirements Future Appointments Date Type Provider Dept 03/21/23 Appointment Brad Thacker MD [facility] 04/29/23 Appointment Keri Huynh APRN, CNS [facility] Showing future appointments within next 90 days and meeting all other requirements documented in this encounter Plan of Treatment Upcoming Encounters Date Type Department Care Team (Late st Contact Info) Description 02/21/2025 9:00 AM CDT Telemedicine [facility] - Neurology - [place] [address] [place] [address] Keri Huynh APRN, WASH DRILLER HELPER [address] [place] [address] 04/06/2025 9:00 AM CDT Procedure Visit [facility] - Neurology - [place] [address] [place] [address] Brad Thacker MD [address] [place] [address] documented as of this encounter Visit Diagnoses Diagnosis Chronic migraine without aura, with intractable migraine, so stated, with status migrainosus documented in this encounter Care Teams Spa Concierge Relationship Specialty Start Date End Date Duc Gore [facility] [address] [place] [address] PCP - General Physician Director On Air 10/21/16 Rubin Kessler MD [address] [place] [address] Consulting Physician Cardiovascular Disease - Cardiology 05/02/23 Keri Huynh APRN, WASH DRILLER HELPER [address] [place] [address] Nurse Practitioner Advanced Practice Nurse 07/30/22 Brad Thacker MD [address] [place] [address] Consulting Physician Neurology 03/21/23 documented as of this encounter
--- OUTSIDE RECORDS SUMMARY | 2025-01-27 18:19 | XMS_ITS | Encounter Summary ---
Author Organization [facility] Address [address] [place] [address] Phone Care Team Providers Care Emergency Care Attendant Name Role Phone KaylaDuc srping Primary Care Provider [phone] Rubin Kessler MD Unavailable Keri Arreola APRN, MOLD CLEANING AND STORAGE SUPERVISOR Unavailable [phone]- [phone] Brad Thacker MD Unavailable [phone] Reason for Visit * Reason Onset Date Comments Prior Authorization 01/11/2025 Encounter Details Date Type Department Care Team (Late st Contact Info) Description 01/11/2025 Telephone [facility] Specialty [address] [place] [address] Keri Huynh, COMMANDING OFFICER GARAGE, MOLD CLEANING AND STORAGE SUPERVISOR [address] [place] [address] Prior Authorization Social History Tobacco Use Types Packs/Day Years [...] encounter Miscellaneous Notes * Telephone Encounter - Belén Abdul - 01/11/2025 1:30 PM CDT Just a reminder that this pt get her Botox through the specialty pharmacy [facility] I believe. I am looking for a number to call them and make sure she has an auth on file or to start one. If you haveanything please let me know. Thanks Belén Walker [facility] Specialty documented in this encounter Plan of Treatment Upcoming Encounters Date Type Department Care Team (Late st Contact Info) Description 02/21/2025 9:00 AM CDT Telemedicine [facility] - Neurology - [place] [address] [place] [address] Keri Huynh APRN, MOLD CLEANING AND STORAGE SUPERVISOR [address] [place] [address] 04/06/2025 9:00 AM CDT Procedure Visit [facility] - Neurology - [place] [address] [place] [address] Brad Thacker MD [address] [place] [address] documented as of this encounter Visit Diagnoses Not on filedocumented in this encounter Care Teams Emergency Care Attendant Relationship Specialty Start Date End Date Duc Gore PAC [address] [place] [address] PCP - General Physician Commercial Lines Underwriter 10/21/16 Rubin Kessler MD [address] [place] [address] Consulting Physician Cardiovascular Disease - Cardiology 05/02/23 Keri Huynh APRN, MOLD CLEANING AND STORAGE SUPERVISOR [address] [place] [address] Nurse Practitioner Advanced Practice Nurse 07/30/22 Brad Thacker MD [address] [place] [address] Consulting Physician Neurology 03/21/23 documented as of this encounter
--- OUTSIDE RECORDS SUMMARY | 2025-01-27 18:19 | XMS_ITS | Clinical Summary ---
Author Organization [facility] Address [address] [place] [address] Phone Care Team Providers Care Nurse Instructor Name Role Phone Duc Gore Primary Care Provider [phone] Rubin Kessler MD Unavailable Unavai Keri Yadav APRN, FOREPART ROUNDER Unavailable [phone] Brad Thacker MD Unavailable [phone] Allergies Active Allergy Reactions Criticality Noted Date Comments Ibuprofen Unknown Penicillins Hives 12/27/2015 Medications ondansetron (ZOFRAN-ODT) 4 MG TABLET DISPERSIBLEIndi cations:Chronic migraine without aura, with intractable migraine, so stated, with status migrainosus Take 1 Tablet by mouth every 8 hours as needed for Nausea - 1st line. 10 Tablet 3 01/29/20 23 Active Topiramate 50 MG TabletIndicatio ns:Chronic migraine without aura, with intractable migraine, so stated, with status migrainosus TAKE 1 TABLET BY MOUTH TWICE A DAY 180 Tablet 1 03/11/20 23 Active Ubrogepant (Ubrelvy) 50 MG TabletIndicatio ns:Chronic migraine without aura, with intractable migraine, so stated, with status migrainosus Take 1 Tablet by mouth once as needed for Other (migraine) for up to 1 dose. 16 Tablet 2 06/05/20 23 Active methylPREDNISol one (MEDROL DOSPACK) 4 MG Tablet Therapy Pack Use as per instructions on package. 21 Tablet 11/25/19 24 Active Erenumab-aooe (Aimovig) 140 MG/ML Solution Auto-injectorIn dications:Chron ic migraine without aura, with intractable migraine, so stated, with status migrainosus INJECT 1ML SUBCUTANEOUSLY EVERY 30 DAYS 1 mL 3 06/29/20 24 Active cyclobenzaprine (FLEXERIL) 10 MG TabletIndicatio ns:Muscle spasm TAKE 1 TABLET BY MOUTH EVERY DAY AT NIGHT 30 Tablet 3 10/01/20 24 Active Botox 200 units Recon SolnIndications :Chronic migraine without aura, with intractable migraine, so stated, with status migrainosus 155 Units by Intramuscular route every 90 days. 1 Each 3 06/01/20 24 025 Discontin ued(Med List Clean Up) Hospital, Clinic, or Other Facility Administered Medication Ordered Dose Route Frequency Start Date End Date Status botulinum Toxin Type A (BOTOX) injection 200 UnitsIndications:Chronic migraine without aura, with intractable migraine, so stated, with status migrainosus 200 Units IJ ONCE 01/14/2025 01/14/2025 Ended Active Problems Problem Noted Date Diagnosed Date Chronic migraine without aur a, with intractable migraine, so stated, with status migrainosus 04/28/2019 Migraine 03/27/2018 Encounters Date Type Department Care Team Description 01/27/2025 Refill [facility] Neurology [facility] [address] [place] [address] Keri Huynh APRN, FOREPART ROUNDER Medication Refill 01/14/2025 9:15 AM CDT Procedure Visit [facility] Neurology [facility] [address] [place] [address] Brad Thacker MD Chronic migraine without aura, with intractable migraine, so stated, with status migrainosus Discharge Disposition: Discharged to home or Selfcare 01/14/2025 Travel 01/11/2025 Telephone [facility] [address] [place] [address] Keri Huynh APRN, FOREPART ROUNDER Prior Authorization 12/31/2024 Telephone [facility] Neurology [facility] [address] [place] [address] Brad Thacker MD 11/09/2024 Telephone [facility] - Neurology - [place] [address] [place] [address] Keri Huynh APRN, FOREPART ROUNDER from Last 3 Months Family History Medical History Relation Name Comments Heart Attack Brother Cancer Father Kidney Cancer Father Heart Attack Maternal Grandfather Heart Disease Maternal Grandmother Ovarian Cancer Mother Cancer Paternal Grandfather Cancer Paternal Grandmother Relation Name Status Comments Brother Father Maternal Grandfather Maternal Grandmother Mother Paternal Grandfather Paternal Grandmother Social History Tobacco Use Types Packs/Day Years Used Date Smoking Tobacco: Former Cigarettes Q uit: 07/06/2020 Smokeless Tobacco: Never Tobacco Cessation:Counseling Given: Not Answered Alcohol Use Standard Drinks/Week Comments No 0 (1 standard drink = 0.6 oz pur e alcohol) Comments No Sex and Gender Information Value Date Recorded Sex Assigned at Female 05/19/2023 1:25 PM CDT Legal Sex Female 11:17 PM CDT Gender Identity Female 05/19/2023 1:25 PM CDT Sexual Orientation Not on file Last Filed Vital Signs Vital Sign Reading Time Taken Comments Blood Pressure 122/76 10/30/2023 11:34 AM RADIO REPAIRER Pulse 86 10/30/2023 11:34 AM RADIO REPAIRER Temperature 36.2 C (97.1 F) 10/30/2023 11:34 AM RADIO REPAIRER Respiratory Rate 20 10/30/2023 11:34 AM RADIO REPAIRER Oxygen Saturation 100% 10/30/2023 11:34 AM RADIO REPAIRER Inhaled Oxygen Concentration - - Weight 67.6 kg (149 lb) 10/30/2023 11:34 AM RADIO REPAIRER Height 165.1 cm (5' 5 ) 10/30/2023 11:34 AM RADIO REPAIRER Body Mass Index 24.79 10/30/2023 11:34 AM RADIO REPAIRER Plan of Treatment Upcoming Encounters Date Type Department Care Team (Late st Contact Info) Description 02/21/2025 9:00 AM CDT [facility] [place] [address] [place] [address] Keri Huynh APRN, FOREPART ROUNDER [address] [place] [address] 04/06/2025 9:00 AM CDT Procedure Visit [facility] - Neurology [facility] [address] [place] [address] Brad Thacker MD [address] [place] [address] Health Maintenance Due Date Last Done Comments Hepatitis C Virus (HCV) Screening 1985 TdaP Immunization 1985 Hepatitis B Immunization (1 of 3 - 19+ 3-dose series) 2004 Pap Smear 2006 Cervical Cancer Screening (CCS) 2015 HPV/Cotest 2015 SARS-COV-2 Immunization ( season) 2024 Influenza Immunization (Seas on Ended) 2025 Respiratory Syncytial Virus (RSV) Immunization (Adult) (1 - 1-dose 75+ series) 2060 Meningococcal Immunization (ACWY) Aged Out No longer eligible based on patient's age to complete this topic Pneumococcal Immunization Combined Aged Out No longer eligible based on patient's age to complete this topic Rotavirus Immunization Aged Out No lo nger eligible based on patient's age to complete this topic Procedures Procedure Name Priority Date/Time Associated Diagnosis Comments CHEMODENERV MUSCLE(S) BILAT FACIAL/TRIGEMINAL/CERV SPINE Routine 01/14/2025 9:15 AM CDT Chronic migraine without aura, with intractable migraine, so stated, with status migrainosus OPHTHALMOLOGY CONSULT 01/03/2025 12:00 AM CDT from Last 3 Months Results * CHEMODENERV MUSCLE(S) BILAT FACIAL/TRIGEMINAL/CERV SPINE (01/14/2025 9:15 AM CDT) Narrative Brad Thacker MD - 01/14/2025 9:15 AM CDT Brad Thacker MD 01/14/2025 2:28 PM Shara presents for administration of botox for treatment of chronic migraines. Frequency of headaches compared to pre-Botox: significantly improved Function since receiving Botox: significantly improved Wasted amount of Botox: 45 Her skin was prepped with an alcohol wipe. Botox was diluted with 200 units into 4 ml saline and administered with a 30 gauge 1/2 inch needle to the following sites: To the corrugators 10 units was divided into two sites. To the procerus 5 units was admistered to 1 site To the frontalis 20 units was divided into 4 sites To the temporalis 40 units was divided into 8 sites To the Occipitalis 30 units was divided into 6 sites To the cervical paraspinals 20 units divided into 4 sites To the trapezius 30 units divided into 6 sites. This procedure has been fully reviewed with the patient and written informed consent has been obtained. Patient tolerated the procedure with no complications. Brad Thacker MD [place] - SURGERY Final Result * OPHTHALMOLOGY CONSULT (01/03/2025 12:00 AM CDT) 01/03/2025 Provider Scan GENERIC SCAN ORDERS CONSULT Yoon lorenzo Result SCAN from Last 3 Months Insurance CIG CIGNA Care Teams Nurse Instructor Relationship Specialty Start Date End Date Duc Gore PAC [address] [place] [address] PCP - General Physician Crew Leader/Control Room Operator 10/21/16 Rubin Kessler MD [address] [place] [address] Consulting Physician Cardiovascular Disease - Cardiology 05/02/23 Keri Huynh APRN, FOREPART ROUNDER [address] [place] [address] Nurse Practitioner Advanced Practice Nurse 07/30/22 Brad Thacker MD [address] [place] [address] Consulting Physician Neurology 03/21/23
--- OUTSIDE RECORDS SUMMARY | 2025-01-27 18:20 | XMS_ITS | Encounter Summary ---
Author Organization [facility] Address [address] [place] [address] Phone Care Team Providers Care Manager Sustainability Name Role Phone Duc Gore Primary Care Provider [phone] Rubin Kessler MD Unavailable Keri Arreola APRN, HEAD BUCKER Unavailable [phone]- [phone] rBad Thacker MD Unavailable [phone] Reason for Visit * Reason Comments Medication Refill Encounter Details Date Type Department Care Team (Late st Contact Info) Description 12/24/2020 [facility]ill [facility] [address] [place] [address] Brad Thacker MD [address] [place] [address] Medication Refill Social History Tobacco [...] Info) Description 02/21/2025 9:00 AM CDT Telemedicine [facility] - Neurology - [place] [address] [place] [address] Keri Huynh APRN, HEAD BUCKER [address] [place] [address] 04/06/2025 9:00 AM CDT Procedure Visit [facility] - Neurology - [place] [address] [place] [address] Brad Thacker MD [address] [place] [address] documented as of this encounter Visit Diagnoses Diagnosis Muscle spasm Spasm of muscle documented in this encounter Care Teams Manager Sustainability Relationship Specialty Start Date End Date Duc Gore [facility] [address] [place] [address] PCP - General Physician Chemistry Specialist 10/21/16 Rubin Kessler MD [address] [place] [address] Consulting Physician Cardiovascular Disease - Cardiology 05/02/23 Keri Huynh APRN, HEAD BUCKER [address] [place] [address] Nurse Practitioner Advanced Practice Nurse 07/30/22 Brad Thacker MD [address] [place] [address] Consulting Physician Neurology 03/21/23 documented as of this encounter
--- OUTSIDE RECORDS SUMMARY | 2025-01-27 18:20 | XMS_ITS | Encounter Summary ---
Author Organization [facility] Address [address] [place] [address] Phone Care Team Providers Care Tour Director Name Role Phone Duc Gore Primary Care Provider [phone] Rubin Kessler MD Unavailable Keri Arreola APRN, MATCHER OFFBEARER Unavailable [phone]- [phone] Brad Thacker MD Unavailable [phone] Reason for Visit * Reason Comments Medication Refill Encounter Details Date Type Department Care Team (Late st Contact Info) Description 02/19/2021 Refill [facility] Neu[facility] [address] [place] [address] Brad Thacker MD [address] [place] [address] Medication Refill Social History Tobacco [...] Description 02/21/2025 9:00 AM CDT Telemedicine [facility] - Neurology - [place] [address] [place] [address] Keri Huynh APRN, MATCHER OFFBEARER [address] [place] [address] 04/06/2025 9:00 AM CDT Procedure Visit [facility] - Neurology - [place] [address] [place] [address] Brad Thacker MD [address] [place] [address] documented as of this encounter Visit Diagnoses Diagnosis Muscle spasm Spasm of muscle documented in this encounter Care Teams Tour Director Relationship Specialty Start Date End Date Duc Gore [facility] [address] [place] [address] PCP - General Physician Loom Checker 10/21/16 Rubin Kessler MD [address] [place] [address] Consulting Physician Cardiovascular Disease - Cardiology 05/02/23 Keri Huynh APRN, MATCHER OFFBEARER [address] [place] [address] Nurse Practitioner Advanced Practice Nurse 07/30/22 Brad Thacker MD [address] [place] [address] Consulting Physician Neurology 03/21/23 documented as of this encounter
--- OUTSIDE RECORDS SUMMARY | 2025-01-27 18:20 | XMS_ITS | Encounter Summary ---
Author Organization [facility] Address [address] [place] [address] Phone Care Team Providers Care Information Officer Name Role Phone Duc Gore Primary Care Provider Rubin Kessler MD Unavailable Keri Arreola APRN, HYDRAULIC TESTER Unavailable [phone]- [phone] Brad Thacker MD Unavailable [phone] Reason for Visit * Reason Comments Medication Refill Encounter Details Date Type Department Care Team (Late Contact Info) Description 09/20/2020 Refill [facility] [address] [place] [address] Brad Thacker MD [address] [place] [address] Medication Refill Social History Tobacco [...] Info) Description 02/21/2025 9:00 AM CDT Telemedicine [facility] - Neurology - [place] [address] [place] [address] Keri Huynh APRN, HYDRAULIC TESTER [address] [place] [address] 04/06/2025 9:00 AM CDT Procedure Visit [facility] - Neurology - [place] [address] [place] [address] Brad Thacker MD [address] [place] [address] documented as of this encounter Visit Diagnoses Diagnosis Muscle spasm Spasm of muscle documented in this encounter Care Teams Information Officer Relationship Specialty Start Date End Date Duc Gore [facility] [address] [place] [address] PCP - General Physician Awnings Mechanic 10/21/16 Rubin Kessler MD [address] [place] [address] Consulting Physician Cardiovascular Disease - Cardiology 05/02/23 Keri Huynh APRN, HYDRAULIC TESTER [address] [place] [address] Nurse Practitioner Advanced Practice Nurse 07/30/22 Brad Thacker MD [address] [place] [address] Consulting Physician Neurology 03/21/23 documented as of this encounter
--- OUTSIDE RECORDS SUMMARY | 2025-01-27 18:20 | XMS_ITS | Encounter Summary ---
Author Organization [facility] Address [address] [place] [address] Phone Care Team Providers Care Fabric Finisher Name Role Phone Duc Gore Primary Care Provider [phone] Rubin Kessler MD Unavailable Keri Arreola APRN, BILLING ANALYST Unavailable [phone]- [phone] Brad Thacker MD Unavailable [phone] Reason for Visit * Reason Comments Medication Refill Encounter Details Date Type Department Care Team (Late Contact Info) Description 05/20/2020 Refill [facility]rology [facility] [address] [place] [address] Brad Thacker MD [address] [place] [address] Medication Refill Social History Tobacco [...] Info) Description 02/21/2025 9:00 AM CDT Telemedicine [facility] - Neurology - [place] [address] [place] [address] Keri Huynh APRN, BILLING ANALYST [address] [place] [address] 04/06/2025 9:00 AM CDT Procedure Visit [facility] - Neurology - [place] [address] [place] [address] Brad Thacker MD [address] [place] [address] documented as of this encounter Visit Diagnoses Not on filedocumented in this encounter Care Teams Fabric Finisher Relationship Specialty Start Date End Date Duc Gore, [facility] [address] [place] [address] PCP - General Physician Rest Room Attendant 10/21/16 Rubin Kessler MD [address] [place] [address] Consulting Physician Cardiovascular Disease - Cardiology 05/02/23 Keri Huynh APRN, BILLING ANALYST [address] [place] [address] Nurse Practitioner Advanced Practice Nurse 07/30/22 Brad Thacker MD [address] [place] [address] Consulting Physician Neurology 03/21/23 documented as of this encounter
--- OUTSIDE RECORDS SUMMARY | 2025-01-27 18:20 | XMS_ITS | Encounter Summary ---
Author Organization [facility] Address [address] [place] [address] Phone Care Team Providers Care Hydroelectric Plant Structural Engineer Name Role Phone Duc Gore Primary Care Provider Rubin Kessler MD Unavailable Keri Arreola APRN, HAZMAT CDL A DRIVER Unavailable [phone]- [phone] Brad Thacker MD Unavailable [phone] Reason for Visit * Reason Comments Medication Refill Encounter Details Date Type Department Care Team (Late st Contact Info) Description 11/22/2020 Refill [facility] [address] [place] [address] Brad Thacker MD [address] [place] [address] Medication Refill Social History Tobacco [...] Info) Description 02/21/2025 9:00 AM CDT Telemedicine [facility] - Neurology - [place] [address] [place] [address] Keri Huynh APRN, HAZMAT CDL A DRIVER [address] [place] [address] 04/06/2025 9:00 AM CDT Procedure Visit [facility] - Neurology - [place] [address] [place] [address] Brad Thacker MD [address] [place] [address] documented as of this encounter Visit Diagnoses Diagnosis Muscle spasm Spasm of muscle documented in this encounter Care Teams Hydroelectric Plant Structural Engineer Relationship Specialty Start Date End Date Duc Gore [facility] [address] [place] [address] PCP - General Physician Sales Research Analyst 10/21/16 Rubin Kessler MD [address] [place] [address] Consulting Physician Cardiovascular Disease - Cardiology 05/02/23 Keri Huynh APRN, HAZMAT CDL A DRIVER [address] [place] [address] Nurse Practitioner Advanced Practice Nurse 07/30/22 Brad Thacker MD [address] [place] [address] Consulting Physician Neurology 03/21/23 documented as of this encounter
--- OUTSIDE RECORDS SUMMARY | 2025-01-27 18:20 | XMS_ITS | Encounter Summary ---
Author Organization [facility] Address [address] [place] [address] Phone Care Team Providers Care Electrical Line Mechanic Name Role Phone Duc Gore Primary Care Provider [phone] Rubin Kessler MD Unavailable Keri Arreola APRN, DYE REEL OPERATOR HELPER Unavailable [phone]- [phone] Brad Thacker MD Unavailable [phone] Reason for Visit * Reason Comments Medication Refill Encounter Details Date Type Department Care Team (Late st Contact Info) Description 01/23/2021 Refill [facility]rology [facility] [address] [place] [address] Brad Thacker MD [address] [place] [address] Medication Refill Social History Tobacco [...] Info) Description 02/21/2025 9:00 AM CDT Telemedicine [facility] - Neurology - [place] [address] [place] [address] Keri Huynh APRN, DYE REEL OPERATOR HELPER [address] [place] [address] 04/06/2025 9:00 AM CDT Procedure Visit [facility] - Neurology - [place] [address] [place] [address] Brad Thacker MD [address] [place] [address] documented as of this encounter Visit Diagnoses Diagnosis Muscle spasm Spasm of muscle documented in this encounter Care Teams Electrical Line Mechanic Relationship Specialty Start Date End Date Duc Gore [facility] [address] [place] [address] PCP - General Physician Project Coach 10/21/16 Rubin Kessler MD [address] [place] [address] Consulting Physician Cardiovascular Disease - Cardiology 05/02/23 Keri Huynh APRN, DYE REEL OPERATOR HELPER [address] [place] [address] Nurse Practitioner Advanced Practice Nurse 07/30/22 Brad Thacker MD [address] [place] [address] Consulting Physician Neurology 03/21/23 documented as of this encounter
--- OUTSIDE RECORDS SUMMARY | 2025-01-27 18:20 | XMS_ITS | Encounter Summary ---
Author Organization [facility] Address [address] [place] [address] Phone Care Team Providers Care Program Director Substance Abuse Name Role Phone Duc Gore Primary Care Provider [phone] Rubin Kessler MD Unavailable Keri Arreola APRN, ACID CONDITIONER Unavailable [phone] Brad Thacker MD Unavailable [phone] Reason for Visit * Reason Comments Medication Refill Encounter Details Date Type Department Care Team (Late Contact Info) Description 07/22/2020 Refill [facility] [address] [place] [address] Brad Thacker MD [address] [place] [address] Medication Refill Social History Tobacco [...] Info) Description 02/21/2025 9:00 AM CDT Telemedicine [facility] - Neurology - [place] [address] [place] [address] Keri Huynh APRN, ACID CONDITIONER [address] [place] [address] 04/06/2025 9:00 AM CDT Procedure Visit [facility] - Neurology - [place] [address] [place] [address] Brad Thacker MD [address] [place] [address] documented as of this encounter Visit Diagnoses Diagnosis Muscle spasm Spasm of muscle documented in this encounter Care Teams Program Director Substance Abuse Relationship Specialty Start Date End Date Duc Gore [facility] [address] [place] [address] PCP - General Physician Head Of Talent Management 10/21/16 Rubin Kessler MD [address] [place] [address] Consulting Physician Cardiovascular Disease - Cardiology 05/02/23 Keri Huynh APRN, ACID CONDITIONER [address] [place] [address] Nurse Practitioner Advanced Practice Nurse 07/30/22 Brad Thacker MD [address] [place] [address] Consulting Physician Neurology 03/21/23 documented as of this encounter
--- OUTSIDE RECORDS SUMMARY | 2025-01-27 18:21 | XMS_ITS | Encounter Summary ---
Author Organization [facility] Address [address] [place] [address] Phone Care Team Providers Care Destination Specialist Name Role Phone Duc Gore Primary Care Provider [phone] Rubin Kessler MD Unavailable Keri Arreola APRN, MEDICAL DIRECTOR/HEAD TEAM PHYSICIAN Unavailable + [phone] Brad Thacker MD Unavailable [phone] Reason for Visit * Reason Comments Medication Refill Encounter Details Date Type Department Care Team (Late st Contact Info) Description 11/21/2021 Refill [facility] - [facility] [address] [place] [address] Brad Thacker MD [address] [place] [address] Medication Refill Social History Tobacco [...] Info) Description 02/21/2025 9:00 AM CDT Telemedicine [facility] - Neurology - [place] [address] [place] [address] Keri Huynh APRN, MEDICAL DIRECTOR/HEAD TEAM PHYSICIAN [address] [place] [address] 04/06/2025 9:00 AM CDT [facility] [place] [address] [place] [address] Brad Thacker MD [address] [place] [address] documented as of this encounter Visit Diagnoses Diagnosis Muscle spasm Spasm of muscle documented in this encounter Care Teams Destination Specialist Relationship Specialty Start Date End Date Duc Gore, [facility] [address] [place] [address] PCP - General Physician Customer Sales Representative 10/21/16 Rubin Kessler MD [address] [place] [address] Consulting Physician Cardiovascular Disease - Cardiology 05/02/23 Keri Huynh APRN, MEDICAL DIRECTOR/HEAD TEAM PHYSICIAN [address] [place] [address] Nurse Practitioner Advanced Practice Nurse 07/30/22 Brad Thacker MD [address] [place] [address] Consulting Physician Neurology 03/21/23 documented as of this encounter
--- OUTSIDE RECORDS SUMMARY | 2025-01-27 18:21 | XMS_ITS | Encounter Summary ---
Author Organization [facility] Address [address] [place] [address] Phone Care Team Providers Care Tax Accounting Assistant Name Role Phone Duc Gore Primary Care Provider [phone] Rubin Kessler MD Unavailable Keri Arreloa APRN, SECURITY INTERN Unavailable +- [phone] Brad Thacker MD Unavailable [phone] Reason for Visit * Reason Comments Medication Refill Encounter Details Date Type Department Care Team (Late st Contact Info) Description 08/08/2022 Refill [facility] [place] [address] [place] [address] Brad Thacker MD [address] [place] [address] Medication Refill Social History Tobacco [...] suspected to have Coronavirus/COVID-19? No / Unsure 07/30/2022 3:25 PM CDT documented as of this encounter Plan of Treatment Upcoming Encounters Date Type Department Care Team (Late st Contact Info) Description 02/21/2025 9:00 AM CDT Telemedicine [facility] - Neurology - [place] #[address] [place] [address] Keri Huynh APRN, SECURITY INTERN [address] [place] [address] 04/06/2025 9:00 AM CDT Procedure Visit [facility] Neurology - [place] [address] [place] [address] Brad Thacker MD [address] [place] [address] documented as of this encounter Visit Diagnoses Diagnosis Muscle spasm Spasm of muscle documented in this encounter Care Teams Tax Accounting Assistant Relationship Specialty Start Date End Date Duc Gore PAC [address] [place] [address] PCP - General Physician Rotary Drill Operator 10/21/16 Rubin Kessler MD [address] [place] [address] Consulting Physician Cardiovascular Disease - Cardiology 05/02/23 Keri Huynh MOTHERCRAFT NURSE, SECURITY INTERN [address] [place] [address] Nurse Practitioner Advanced Practice Nurse 07/30/22 Brad Thacker MD [address] [place] [address] Consulting Physician Neurology 03/21/23 documented as of this encounter
--- OUTSIDE RECORDS SUMMARY | 2025-01-27 18:21 | XMS_ITS | Encounter Summary ---
Author Organization [facility] Address [address] [place] [address] Phone Care Team Providers Care Marketing Automation Analyst Name Role Phone Duc Gore Primary Care Provider [phone] Rubin Kessler MD Unavailable Keri Arreola APRN, BAND SINGER Unavailable + [phone] Brad Thacker MD Unavailable [phone] Reason for Visit * Reason Comments Medication Refill Encounter Details Date Type Department Care Team (Late st Contact Info) Description 08/24/2021 Refill [facility] - Neurology [facility] #2 [place] [address] Brad Thacker MD [address] [place] [address] Medication Refill Social History Tobacco [...] Telephone Encounter - Yue Mendoza RN - 08/24/2021 9:02 AM CST . . ER MACHINE TENDER documented in this encounter Plan of Treatment Upcoming Encounters Date Type Department Care Team (Late st Contact Info) Description 02/21/2025 9:00 AM CDT Telemedicine [facility] #2 [place] [address] Keri Huynh BINDING DYER, BAND SINGER [address] [place] [address] 04/06/2025 9:00 AM CDT Procedure [facility] #2 [place] [address] Brad Thacker MD [address] [place] [address] documented as of this encounter Visit Diagnoses Diagnosis Muscle spasm Spasm of muscle documented in this encounter Care Teams Marketing Automation Analyst Relationship Specialty Start Date End Date Duc Gore PAC [address] [place] [address] PCP - General Physician Brewmaster 10/21/16 Rubin Kessler MD [address] [place] [address] Consulting Physician Cardiovascular Disease - Cardiology 05/02/23 Keri Huynh, BINDING DYER, BAND SINGER [address] [place] [address] Nurse Practitioner Advanced Practice Nurse 07/30/22 Brad Thacker MD [address] [place] [address] Consulting Physician Neurology 03/21/23 documented as of this encounter
--- OUTSIDE RECORDS SUMMARY | 2025-01-27 18:21 | XMS_ITS | Encounter Summary ---
Author Organization [facility] Address [address] [place] [address] Phone Care Team Providers Care Entry Level Sales Consultant Name Role Phone Duc Gore Primary Care Provider [phone] Rubin Kessler MD Unavailable Keri Arreola APRN, GOLDSMITH APPRENTICE Unavailable + [phone] Brad Thacker MD Unavailable [phone] Reason for Visit * Reason Comments Medication Refill Encounter Details Date Type Department Care Team (Late st Contact Info) Description 04/01/2022 Refill [facility] - Neurology [facility] [place] [address] Brad Thacker MD [address] [place] [address] Medication Refill Social History Tobacco [...] encounter Miscellaneous Notes * Telephone Encounter - Shonna Dutta RN - 04/02/2022 9:23 AM CDT Medication failed the protocol, provider to review and approve the medication order if appropriate. Requested Prescriptions Pending Prescriptions Disp Refills cyclobenzaprine (FLEXERIL) 10 MG Tablet [Pharmacy Med Name: CYCLOBENZAPRINE 10 MG TABLET] 30 Tablet0 Sig: TAKE 1 TABLET BY MOUTH EVERY DAY AT NIGHT Not Delegated - Muscle Relaxants Protocol Failed - 04/01/2022 12:17 PM Failed - This refill cannot be delegated Passed - Visit with relevant provider in past 12 months or upcoming 90 days Recent Visits Date Type Provider Dept 07/06/21 Office Visit Keri Huynh APRN, GOLDSMITH APPRENTICE [facility] Showing recent visits within past 365 days and meeting all other requirements Future Appointments No visits were found meeting these conditions. Showing future appointments within next 90 days and meeting all other requirements documented in this encounter Plan of Treatment Upcoming Encounters Date Type Department Care Team (Late st Contact Info) Description 02/21/2025 9:00 AM CDT Telemedicine [facility] Neurology - [place] [address] [place] [address] Keri Huynh APRN, GOLDSMITH APPRENTICE [address] [place] [address] 04/06/2025 9:00 AM CDT Procedure Visit [facility] Neurology [facility] [address] [place] [address] Brad Thacker MD [address] [place] [address] documented as of this encounter Visit Diagnoses Diagnosis Muscle spasm Spasm of muscle documented in this encounter Care Teams Entry Level Sales Consultant Relationship Specialty Start Date End Date Duc Gore, JESSENIA [address] [place] [address] PCP - General Physician Chairman President And Chief Executive Officer 10/21/16 Rubin Kessler MD [address] [place] [address] Consulting Physician Cardiovascular Disease - Cardiology 05/02/23 Keri Huynh APRN, GOLDSMITH APPRENTICE [address] [place] [address] Nurse Practitioner Advanced Practice Nurse 07/30/22 Brad Thacker MD [address] [place] [address] Consulting Physician Neurology 03/21/23 documented as of this encounter
--- OUTSIDE RECORDS SUMMARY | 2025-01-27 18:21 | XMS_ITS | Encounter Summary ---
Author Organization [facility] Address [address] [place] [address] Phone Care Team Providers Care Handyperson Name Role Phone Duc Gore Primary Care Provider [phone] Rubin Kessler MD Unavailable Keri Arreola APRN, SALT REFINER Unavailable + [phone] Brad Thacker MD Unavailable [phone] Reason for Visit * Reason Comments Medication Refill Encounter Details Date Type Department Care Team (Late st Contact Info) Description 02/26/2022 Refill [facility] - [facility] #2 [place] [address] Brad Thacker MD [address] [place] [address] Medication Refill Social History Tobacco [...] Info) Description 02/21/2025 9:00 AM CDT Telemedicine [facility] - Neurology - [place] #[address] [place] [address] Keri Huynh APRN, SALT REFINER [address] [place] [address] 04/06/2025 9:00 AM CDT Procedure Visit [facility] - Neurology - [place] #[address] [place] [address] Brad Thacker MD [address] [place] [address] documented as of this encounter Visit Diagnoses Diagnosis Muscle spasm Spasm of muscle documented in this encounter Care Teams Handyperson Relationship Specialty Start Date End Date Duc Gore, [facility] [address] [place] [address] PCP - General Physician Mammalogist 10/21/16 Rubin Kessler MD [address] [place] [address] Consulting Physician Cardiovascular Disease - Cardiology 05/02/23 Keri Huynh APRN, SALT REFINER [address] [place] [address] Nurse Practitioner Advanced Practice Nurse 07/30/22 Brad Thacker MD [address] [place] [address] Consulting Physician Neurology 03/21/23 documented as of this encounter
--- OUTSIDE RECORDS SUMMARY | 2025-01-27 18:21 | XMS_ITS | Continuity of Care Document ---
Author Organization [facility] Address [address] [place] [address] Care Team Providers Care Logging Superintendent Name Role Phone BISMARK GORE Primary Care Provider Assessment No assessment recorded. Plan of Treatment Reminders Order Date Submit Date Provider Last Modified By Organization Details Last Modified Time Details Appointments ANY 2024 10:15A M Bismark Gore PA-C Not available Not available Not available ANY 2024 10:30A Jessica Gore PA-C Not available Not available Not available Lab None recorded. Referral None recorded. Procedures None recorded. Surgeries None recorded. Imaging None recorded. Medication Orders hydroxyzi ne HCl 25 mg tablet 2024 025 [facility]armacy #[id number], [address] [place], [address], 01/27/2025 11:49:55 buspirone 5 mg tablet 2024 025 [facility]/Pharmacy #[id number], [address] [place], [address], 01/27/2025 11:49:56 Patient TargetsNo targets recorded. Patient InstructionsNo instructions recorded. Reason for Referral None Reported. Problems Name Problem SNOMED Code Status Onset Date Resolution Date Notes Provider Name and Address Organization Details Recorded Time Menorrhagia 560247127 Active Guzman Joiner MD Attn: Daljit g,[address] [facility], [place], [address], [facility] 6 11:07:09 Problem Notes None recorded. Procedures Surgical History Date Name Laterality Status Provider Name and Address Organization Details Recorded Time 09/18/2021 Date of Last Pap Smear completed Paulina Amanda [place] [facility] [place] 09/24/2021 09:22:27 Imaging Results None recorded. Procedure Notes None recorded. Medical Equipment None Reported. Allergies Allergen ID Allergen Name Allergen Category Reaction Reaction Severity Criticality Documentation Date Start Date Code Code System Note Provider Name and Address Organization Details Recorded Time 49878 Product containin g penicilli n (product) medicatio n hives severe Not available 11/11/2016 74975 8001 SNOMED Not Available Not Available Not [...] PRN Not Available Not Available Not Avai labsharon butalbital- aspirin-caf feine 50 mg-325 mg-40 mg capsule 11/11 completed Not Available Not Available Not Available hydroxyzine HCl 25 mg tablet Take 1 tablet 3 times a day by oral route as needed for 30 days. 2024 active Not Available Not Available [...] active Not Available Not Available Not Avai labsharon ondansetron 4 mg disintegrat ing tablet active [...] No t Available Vitals Date Recorded Body height Body mass index (BMI) Body weight Respiratory rate Oxygen saturation Oxygen saturation in Arterial blood by Pulse oximetry Heart rate Systolic blood pressure Diastolic blood pressure Provider Name and Address Organization Details Last Updated DateTime 5 162.56 cm 25.2 kg/m2 63699.3 6 g 18 /min 100 % 100 % 86 /min 116 mm[Hg] 80 mm[Hg] Lily Pereira MA [facility] 5 11:31:50 Social History Question Answer Notes LastModified by Organizat ion Details LastModified Time Tobacco Smoking Status Former Smoker Quit 2019 SALMA Castrejon, [facility] 09/18/2021 11:52:42 What Is Your Level Of Alcohol Consumption? Occasional Rarely Information not available 01/27/2025 What Is Your Level Of Caffeine Consumption? Heavy Information not available 02/15/2019 In The 14 Days Before Symptom Onset, Have You Had Close Contact With A Laboratory-confi rmed COVID-19 While That Case Was Ill? No [...] Anxious, Or Unable To Sleep At Night)? [id number] Information not available 02/06/2023 Do You Use [...] History Condition Response Coronary Artery Disease N Blood Diseases N Kidney Cyst N Hyperthyroidism N Blood disorders N MRSA N Blood Transfusion N Emphysema N Blood Clots N COPD N Depression N Pneumonia N Peripheral Arterial Disease N Premature N Edema N TIA N Headaches/Migraines N [...] Hospitalizations N Brain Tumors N Acne N Eating Disorder N Skin Problems N Constipation N Meningitis N Tuberculosis N Cerebral Palsy N Myocardial Infarction N Asthma N Substance Abuse N Peripheral Vascular Disease N Vertigo N Sleep Disorder N Cirrhosis N Pulmonary Embolism N Chicken Pox N [place]ax Use Past or Present N Hematologic Disease N Anxiety/Depression N Thyroid Disease N Colon Cancer N Glaucoma N Lung Disease N Developmental or Behavioral Disorders N Bipolar N Pacemaker N Diverticulitis/Diverticulosis N Anesthesia Complications N Orthopedic Problems N Orthotics N Head Injury/Concussion N Congenital Anomalies N Murguia Bite N Chronic Kidney Disease N Endometriosis N Liver Disease N Dialysis N Schizophrenia N Speech Delay N Chronic Obstructive Pulmonary Disease N Parkinson's Disease N Thyroid Problems N Developmental Delay N GI Problems N Anemia N Immune System Disorder N Multiple Sclerosis N Colon Polyps N Heart Attack (OK) N Diabetes N Cardiomyopathy N Blood Transfusions N Heart Problems/Murmur N Eye Trauma N Congestive Heart Failure (CHF) N Valvular Heart Disease N Hyperlipidemia N Double Vision N Abuse/Domestic Violence N Hepatitis B N Lupus N Epilepsy/Seizures N Reflux/GERD N Aneurysm N Bronchitis N Heart Disease N Hypertension N Pre-Eclampsia N Heart Failure N Other N Gout [...] SNOMED-CT Code Diagnosis ICD10 Code Diagnosis Note [id number] Bismark Gore PA-C [facility] [address] [place] [address] 01/27/2025 11:08:21 01/27/2025 11:51:49 Mixed anxiety and depressive disorder [id number] F41.8 follow up in 2-3 weeks Health Concerns Section Related Observation LastModified by Organization Detai ls LastModified Time None Recorded Concern Status LastModified by Organization Details LastModified Time None Recorded Payers Encounter Date Sequence Insurance Name Policy Number Policy Cespedes Covered Member ID Cespedes Member ID Guarantor Name 01/27/2025 1 [facility] [employer] (PPO) [id number] Vinh Kolby [id number] Shara Nicolas Notes Date Note Type Note Provider Name and Address Organization Details Recorded Time 01/27/2025 text/html has lost a large number of family members...recentl y her cat had a similar experience and triggered a panic attacks...hx of anxiety anyway.. Bismark Gore PA-C Attn: Accounting,[address] [facility], [place], [address], [facility] 01/27/2025 11:51:46 OBGyn Episode No OBEpisode recorded.
--- OUTSIDE RECORDS SUMMARY | 2025-01-27 18:21 | XMS_ITS | Encounter Summary ---
Author Organization [facility] Address [address] [place] [address] Phone Care Team Providers Care Wastewater Treatment Plant Chemist Name Role Phone Duc Gore Primary Care Provider [phone] Rubin Kessler MD Unavailable Keri Arreola APRN, DUMP TRUCK OPERATOR Unavailable +[phone] Brad Thacker MD Unavailable [phone] Reason for Visit * Reason Comments Medication Refill Encounter Details Date Type Department Care Team (Late st Contact Info) Description 07/21/2021 Refill [facility] - Neurology [facility] #[address] [place] [address] Brad Thacker MD [address] [place] [address] Medication Refill Social History Tobacco [...] have Coronavirus / COVID-19? No / Unsure 07/06/2021 9:22 AM CDT documented as of this encounter Plan of Treatment Upcoming Encounters Date Type Department Care Team (Late st Contact Info) Description 02/21/2025 9:00 AM CDT [facility] [place] #[address] [place] [address] Keri Huynh APRN, DUMP TRUCK OPERATOR [address] [place] [address] 04/06/2025 9:00 AM CDT Procedure Visit [facility]rology - [place] #2 [place] [address] Brad Thacker MD [address] [place] [address] documented as of this encounter Visit Diagnoses Diagnosis Muscle spasm Spasm of muscle documented in this encounter Care Teams Wastewater Treatment Plant Chemist Relationship Specialty Start Date End Date Duc Gore PAC [address] [place] [address] PCP - General Physician Administrative Manager 10/21/16 Rubin Kessler MD [address] [place] [address] Consulting Physician Cardiovascular Disease - Cardiology 05/02/23 Keri Huynh SMUTTER, DUMP TRUCK OPERATOR [address] [place] [address] Nurse Practitioner Advanced Practice Nurse 07/30/22 Brad Thacker MD #[address] [place] [address] Consulting Physician Neurology 03/21/23 documented as of this encounter
--- OUTSIDE RECORDS SUMMARY | 2025-01-27 18:21 | XMS_ITS | Encounter Summary ---
Author Organization [facility] Address [address] [place] [address] Phone Care Team Providers Care Farmworker Animal Name Role Phone Duc Gore Primary Care Provider [phone] Rubin Kessler MD Unavailable Keri Arreola APRN, WARDROBE ATTENDANT Unavailable + [phone] Brad Thacker MD Unavailable [phone] Reason for Visit * Reason Comments Medication Refill Encounter Details Date Type Department Care Team (Late st Contact Info) Description 06/04/2022 Refill [facility] - [facility] #[address] [place] [address] Brad Thacker MD [address] [place] [address] Medication Refill Social History Tobacco [...] Info) Description 02/21/2025 9:00 AM CDT Telemedicine [facility] - Neurology - [place] #[address] [place] [address] Keri Huynh APRN, WARDROBE ATTENDANT #[address] [place] [address] 04/06/2025 9:00 AM CDT [facility] [place] #[address] [place] [address] Brad Thacker MD [address] [place] [address] documented as of this encounter Visit Diagnoses Diagnosis Muscle spasm Spasm of muscle documented in this encounter Care Teams Farmworker Animal Relationship Specialty Start Date End Date Duc Gore, [facility] [address] [place] [address] PCP - General Physician Security Police Officer 10/21/16 Rubin Kessler MD [address] [place] [address] Consulting Physician Cardiovascular Disease - Cardiology 05/02/23 Keri Huynh APRN, WARDROBE ATTENDANT #[address] [place] [address] Nurse Practitioner Advanced Practice Nurse 07/30/22 Brad Thacker MD #[address] [place] [address] Consulting Physician Neurology 03/21/23 documented as of this encounter
--- OUTSIDE RECORDS SUMMARY | 2025-01-27 18:21 | XMS_ITS | Encounter Summary ---
Author Organization [facility] Address [address] [place] [address] Phone Care Team Providers Care Wiring Inspector Name Role Phone Duc Gore Primary Care Provider [phone] Rubin Kessler MD Unavailable Keri Arreola APRN, SLIVER CUTTER Unavailable + [phone] Brad Thacker MD Unavailable [phone] Reason for Visit * Reason Comments Medication Refill Encounter Details Date Type Department Care Team (Late st Contact Info) Description 10/22/2021 Refill [facility] - [facility] #[address] [place] [address] Brad Thacker MD [address] [place] [address] Medication Refill Social History Tobacco [...] Info) Description 02/21/2025 9:00 AM CDT Telemedicine [facility] - Neurology - [place] #[address] [place] [address] Keri Huynh APRN, SLIVER CUTTER [address] [place] [address] 04/06/2025 9:00 AM CDT [facility] [place] #[address] [place] [address] Brad Thacker MD #[address] [place] [address] documented as of this encounter Visit Diagnoses Diagnosis Muscle spasm Spasm of muscle documented in this encounter Care Teams Wiring Inspector Relationship Specialty Start Date End Date Duc Gore, [facility] [address] [place] [address] PCP - General Physician Thermodynamics Teacher 10/21/16 Rubin Kessler MD [address] [place] [address] Consulting Physician Cardiovascular Disease - Cardiology 05/02/23 Keri Huynh APRN, SLIVER CUTTER [address] [place] [address] Nurse Practitioner Advanced Practice Nurse 07/30/22 Brad Thacker MD #[address] [place] [address] Consulting Physician Neurology 03/21/23 documented as of this encounter
--- OUTSIDE RECORDS SUMMARY | 2025-01-27 18:21 | XMS_ITS | Encounter Summary ---
Author Organization [facility] Address [address] [place] [address] Phone Care Team Providers Care Distribution System Operator Name Role Phone Duc Gore Primary Care Provider [phone] Rubin Kessler MD Unavailable Keri Arreola APRN, GROUNDMAN Unavailable + [phone] Brad Thacker MD Unavailable [phone] Reason for Visit * Reason Comments Medication Refill Encounter Details Date Type Department Care Team (Late st Contact Info) Description 07/06/2022 Refill [facility] - [facility] #[address] [place] [address] Brad Thacker MD #[address] [place] [address] Medication Refill Social History Tobacco [...] Info) Description 02/21/2025 9:00 AM CDT Telemedicine [facility] - Neurology - [place] #[address] [place] [address] Keri Huynh APRN, GROUNDMAN [address] [place] [address] 04/06/2025 9:00 AM CDT [facility] [place] #[address] [place] [address] Brad Thacker MD #[address] [place] [address] documented as of this encounter Visit Diagnoses Diagnosis Muscle spasm Spasm of muscle documented in this encounter Care Teams Distribution System Operator Relationship Specialty Start Date End Date Duc Gore, [facility] [address] [place] [address] PCP - General Physician Operating Room Registered Nurse 10/21/16 Rubin Kessler MD [address] [place] [address] Consulting Physician Cardiovascular Disease - Cardiology 05/02/23 Keri Huynh APRN, GROUNDMAN [address] [place] [address] Nurse Practitioner Advanced Practice Nurse 07/30/22 Brad Thacker MD #[address] [place] [address] Consulting Physician Neurology 03/21/23 documented as of this encounter
--- OUTSIDE RECORDS SUMMARY | 2025-01-27 18:21 | XMS_ITS | Encounter Summary ---
Author Organization [facility] Address [address] [place] [address] Phone Care Team Providers Care Director Of Instruction Name Role Phone Duc Gore Primary Care Provider Rubin Kessler MD Unavailable Keri Arreola APRN, SUPPLY CHAIN ANALYST Unavailable + [phone] Brad Thacker MD Unavailable [phone] Reason for Visit * Reason Comments Medication Refill Encounter Details Date Type Department Care Team (Late st Contact Info) Description 01/27/2022 Refill [facility] - [facility] #[address] [place] [address] Brad Thacker MD #[address] [place] [address] Medication Refill Social History Tobacco [...] Info) Description 02/21/2025 9:00 AM CDT Telemedicine [facility] - Neurology - [place] #[address] [place] [address] Keri Huynh APRN, SUPPLY CHAIN ANALYST #[address] [place] [address] 04/06/2025 9:00 AM CDT Procedure Visit [facility] - Neurology - [place] #[address] [place] [address] Brad Thacker MD #[address] [place] [address] documented as of this encounter Visit Diagnoses Diagnosis Muscle spasm Spasm of muscle documented in this encounter Care Teams Director Of Instruction Relationship Specialty Start Date End Date Duc Gore, [facility] [address] [place] [address] PCP - General Physician Machine Assistant 10/21/16 Rubin Kessler MD [address] [place] [address] Consulting Physician Cardiovascular Disease - Cardiology 05/02/23 Keri Huynh APRN, SUPPLY CHAIN ANALYST #[address] [place] [address] Nurse Practitioner Advanced Practice Nurse 07/30/22 Brad Thacker MD #[address] [place] [address] Consulting Physician Neurology 03/21/23 documented as of this encounter
--- OUTSIDE RECORDS SUMMARY | 2025-01-27 18:21 | XMS_ITS | Encounter Summary ---
Author Organization [facility] Address [address] [place] [address] Phone Care Team Providers Care Project Finance Analyst Name Role Phone Duc Gore Primary Care Provider [phone] Rubin Kessler MD Unavailable Keri Arreola APRN, ENGINEER/CONDUCTOR Unavailable + [phone] Brad Thacker MD Unavailable [phone] Reason for Visit * Reason Comments Medication Refill Encounter Details Date Type Department Care Team (Late Contact Info) Description 06/21/2021 Refill [facility] - [facility] #2 [place] [address] Brad Thacker MD #2 [place] [address] Medication Refill Social History Tobacco [...] Info) Description 02/21/2025 9:00 AM CDT Telemedicine [facility] - Neurology - [place] #2 [place] [address] Keri Huynh APRN, ENGINEER/CONDUCTOR #2 [place] [address] 04/06/2025 9:00 AM CDT Procedure Visit [facility] - Neurology - [place] #2 [place] [address] Brad Thacker MD #2 [place] [address] documented as of this encounter Visit Diagnoses Diagnosis Muscle spasm Spasm of muscle documented in this encounter Care Teams Project Finance Analyst Relationship Specialty Start Date End Date Duc Gore [facility] [address] [place] [address] PCP - General Physician Casting Machine Operator Automatic 10/21/16 Rubin Kessler MD [address] [place] [address] Consulting Physician Cardiovascular Disease - Cardiology 05/02/23 Keri Huynh APRN, ENGINEER/CONDUCTOR #2 [place] [address] Nurse Practitioner Advanced Practice Nurse 07/30/22 Brad Thacker MD #2 [place] [address] Consulting Physician Neurology 03/21/23 documented as of this encounter
--- OUTSIDE RECORDS SUMMARY | 2025-01-27 18:21 | XMS_ITS | Encounter Summary ---
Author Organization [facility] Address [address] [place] [address] Phone Care Team Providers Care Power Hammer Operator Name Role Phone Duc Gore Primary Care Provider [phone] Rubin Kessler MD Unavailable Keri Arreola APRN, AGRICULTURAL LABOR CAMP MANAGER Unavailable + [phone] Brad Thacker MD Unavailable +[phone] Reason for Visit * Reason Comments Medication Refill Encounter Details Date Type Department Care Team (Late st Contact Info) Description 04/29/2022 Refill [facility] #2 [place] [address] Brad Thacker MD #[address] [place] [address] Medication Refill Social History Tobacco [...] Description 02/21/2025 9:[address] [facility] - Neurology - [place] #[address] [place] [address] Keri Huynh APRN, AGRICULTURAL LABOR CAMP MANAGER #[address] [place] [address] 04/06/2025 9:00 AM CDT Procedure [facility] - [place] #[address] [place] [address] Brad Thacker MD #[address] [place] [address] documented as of this encounter Visit Diagnoses Diagnosis Muscle spasm Spasm of muscle documented in this encounter Care Teams Power Hammer Operator Relationship Specialty Start Date End Date Duc Gore, [facility] [address] [place] [address] PCP - General Physician Instructor Apparel Manufacture 10/21/16 Rubin Kessler MD [address] [place] [address] Consulting Physician Cardiovascular Disease - Cardiology 05/02/23 Keri Huynh APRN, AGRICULTURAL LABOR CAMP MANAGER #[address] [place] [address] Nurse Practitioner Advanced Practice Nurse 07/30/22 Brad Thacker MD #[address] [place] [address] Consulting Physician Neurology 03/21/23 documented as of this encounter
--- OUTSIDE RECORDS SUMMARY | 2025-01-27 18:21 | XMS_ITS | Encounter Summary ---
Author Organization [facility] Address [address] [place] [address] Phone Care Team Providers Care Tire Buffer Name Role Phone Duc Gore Primary Care Provider [phone] Rubin Kessler MD Unavailable Keri Arreola APRN, BELLSTAFF Unavailable + [phone] Brad Thacker MD Unavailable [phone] Reason for Visit * Reason Comments Medication Refill Encounter Details Date Type Department Care Team (Late st Contact Info) Description 12/19/2021 Refill [facility] #2 [place] [address] Brad Thacker MD #2 [place] [address] Medication Refill Social History Tobacco [...] 02/21/2025 9:00 AM CDT Telemedicine [facility] - Neurology - [place] #2 [place] [address] Keri Huynh APRN, BELLSTAFF [address]2 [place] [address] 04/06/2025 9:00 AM CDT [facility] [place] #2 [place] [address] Brad Thacker MD #[address] [place] [address] documented as of this encounter Visit Diagnoses Diagnosis Muscle spasm Spasm of muscle documented in this encounter Care Teams Tire Buffer Relationship Specialty Start Date End Date Duc Gore, [facility] [address] [place] [address] PCP - General Physician Car Audio Installer 10/21/16 Rubin Kessler MD [address] [place] [address] Consulting Physician Cardiovascular Disease - Cardiology 05/02/23 Keri Huynh APRN, BELLSTAFF [address] [place] [address] Nurse Practitioner Advanced Practice Nurse 07/30/22 Brad Thacker MD #[address] [place] [address] Consulting Physician Neurology 03/21/23 documented as of this encounter
--- OUTSIDE RECORDS SUMMARY | 2025-01-27 18:21 | XMS_ITS | Encounter Summary ---
Author Organization [facility] Address [address] [place] [address] Phone Care Team Providers Care Assembly Line Supervisor Name Role Phone Duc Gore Primary Care Provider [phone] Rubin Kessler MD Unavailable Keri Arreola APRN, WIRING TECHNICIAN Unavailable + [phone] Brad Thacker MD Unavailable [phone] Reason for Visit * Reason Comments Medication Refill Encounter Details Date Type Department Care Team (Late st Contact Info) Description 09/25/2021 Refill [facility] - [facility] #2 [place] [address] Brad Thacker MD #[address] [place] [address] Medication Refill Social History Tobacco [...] Telephone Encounter - Yue Mendoza RN - 09/25/2021 2:02 PM CST . STMENT CLERK documented in this encounter Plan of Treatment Upcoming Encounters Date Type Department Care Team (Late st Contact Info) Description 02/21/2025 9:00 AM CDT Telemedicine [facility] #2 [place] [address] Keri Huynh APRN, WIRING TECHNICIAN #[address] [place] [address] 04/06/2025 9:00 AM CDT Procedure Visit [facility] #2 [place] [address] Brad Thacker MD #[address] [place] [address] documented as of this encounter Visit Diagnoses Diagnosis Muscle spasm Spasm of muscle documented in this encounter Care Teams Assembly Line Supervisor Relationship Specialty Start Date End Date Duc Gore [facility] [address] [place] [address] PCP - General Physician Public Health 10/21/16 Rubin Kessler MD [address] [place] [address] Consulting Physician Cardiovascular Disease - Cardiology 05/02/23 Keri Huynh BATTERYMAN, WIRING TECHNICIAN #[address] [place] [address] Nurse Practitioner Advanced Practice Nurse 07/30/22 Brad Thacker MD #[address] [place] [address] Consulting Physician Neurology 03/21/23 documented as of this encounter
--- OUTSIDE RECORDS SUMMARY | 2025-01-27 18:21 | XMS_ITS | Encounter Summary ---
Author Organization [facility] Address [address] [place] [address] Phone Care Team Providers Care Rock Drill Operator Name Role Phone Duc Gore Primary Care Provider [phone] Rubin Kessler MD Unavailable Keri Arreola APRN, ROLL SETTER Unavailable +- [phone] Brad Thacker MD Unavailable [phone] Reason for Visit * Reason Comments Medication Refill Encounter Details Date Type Department Care Team (Late st Contact Info) Description 09/16/2022 Refill [facility] - [facility] #2 [place] [address] Brad Thacker MD #[address] [place] [address] Medication Refill Social History Tobacco [...] AM CDT Telemedicine [facility] - Neurology - [place] #[address] [place] [address] Keri Huynh APRN, ROLL SETTER #[address] [place] [address] 04/06/2025 9:00 AM CDT [facility] [place] #[address] [place] [address] Brad Thacker MD #[address] [place] [address] documented as of this encounter Visit Diagnoses Diagnosis Muscle spasm Spasm of muscle documented in this encounter Care Teams Rock Drill Operator Relationship Specialty Start Date End Date Duc Gore, [facility] [address] [place] [address] PCP - General Physician Cigar Machine Feeder 10/21/16 Rubin Kessler MD [address] [place] [address] Consulting Physician Cardiovascular Disease - Cardiology 05/02/23 Keri Huynh APRN, ROLL SETTER #[address] [place] [address] Nurse Practitioner Advanced Practice Nurse 07/30/22 Brad Thacker MD #[address] [place] [address] Consulting Physician Neurology 03/21/23 documented as of this encounter
--- OUTSIDE RECORDS SUMMARY | 2025-01-27 18:21 | XMS_ITS | Encounter Summary ---
Author Organization [facility] Address [address] [place] [address] Phone Care Team Providers Care Cake Decorator Name Role Phone Duc Gore Primary Care Provider [phone] Rubin Kessler MD Unavailable Keri Arreola APRN, COMPLIANCE PROGRAM MANAGER Unavailable +- [phone] Brad Thacker MD Unavailable [phone] Reason for Visit * Reason Comments Medication Refill Encounter Details Date Type Department Care Team (Late st Contact Info) Description 02/06/2020 [facility]ill [facility] - [place] #[address] [place] [address] Kelly Hinds, ARMOR SENIOR SERGEANT, CREDIT RATING CHECKER #[address] [place] [address] Medication Refill Social History Tobacco [...] have Coronavirus / COVID-19? No / Unsure 01/19/2020 1:32 PM CDT documented as of this encounter Plan of Treatment Upcoming Encounters Date Type Department Care Team (Late st Contact Info) Description 02/21/2025 9:00 AM CDT Telemedicine [facility] Neurology - [place] #[address] [place] [address] Keri Huynh APRN, COMPLIANCE PROGRAM MANAGER #[address] [place] [address] 04/06/2025 9:00 AM CDT Procedure Visit [facility] Neurology - [place] #[address] [place] [address] Brad Thacker MD #[address] [place] [address] documented as of this encounter Visit Diagnoses Not on filedocumented in this encounter Care Teams Cake Decorator Relationship Specialty Start Date End Date Duc Gore PAC [address] [place] [address] PCP - General Physician Events Solutions Consultant 10/21/16 Rubin Kessler MD [address] [place] [address] Consulting Physician Cardiovascular Disease - Cardiology 05/02/23 Keri Huynh APRN, COMPLIANCE PROGRAM MANAGER #[address] [place] [address] Nurse Practitioner Advanced Practice Nurse 07/30/22 Brad Thacker MD #[address] [place] [address] Consulting Physician Neurology 03/21/23 documented as of this encounter
--- OUTSIDE RECORDS SUMMARY | 2025-01-27 18:22 | XMS_ITS | Encounter Summary ---
Author Organization [facility] Address [address] [place] [address] Phone Care Team Providers Care Business Objects Consultant Name Role Phone Duc Gore Primary Care Provider [phone] Rubin Kessler MD Unavailable Keri Arreola APRN, INJECTION MOLD TOOLING TECHNICIAN Unavailable + [phone] Brad Thacker MD Unavailable [phone] Reason for Visit * Reason Comments Medication Refill Encounter Details Date Type Department Care Team (Late st Contact Info) Description 10/23/2022 Refill [facility] - [facility] #2 [place] [address] Brad Thacker MD #[address] [place] [address] Medication Refill Social History Tobacco [...] Info) Description 02/21/2025 9:00 AM CDT Telemedicine [facility] - Neurology - [place] #2 [place] [address] Keri Huynh APRN, INJECTION MOLD TOOLING TECHNICIAN #[address] [place] [address] 04/06/2025 9:00 AM CDT [facility] [place] #[address] [place] [address] Brad Thacker MD #[address] [place] [address] documented as of this encounter Visit Diagnoses Diagnosis Muscle spasm Spasm of muscle documented in this encounter Care Teams Business Objects Consultant Relationship Specialty Start Date End Date Duc Gore, [facility] [address] [place] [address] PCP - General Physician Api Developer 10/21/16 Rubin Kessler MD [address] [place] [address] Consulting Physician Cardiovascular Disease - Cardiology 05/02/23 Keri Huynh APRN, INJECTION MOLD TOOLING TECHNICIAN #[address] [place] [address] Nurse Practitioner Advanced Practice Nurse 07/30/22 Brad Thacker MD #[address] [place] [address] Consulting Physician Neurology 03/21/23 documented as of this encounter
--- OUTSIDE RECORDS SUMMARY | 2025-01-27 18:22 | XMS_ITS | Encounter Summary ---
Author Organization [facility] Address [address] [place] [address] Phone Care Team Providers Care Auto Tune Up Mechanic Name Role Phone Duc Gore Primary Care Provider [phone] Rubin Kessler MD Unavailable Keri Arreola APRN, STOREKEEPER STEWARD Unavailable + [phone] Brad Thacker MD Unavailable [phone] Reason for Visit * Reason Comments Medication Refill Encounter Details Date Type Department Care Team (Late st Contact Info) Description 12/09/2022 Refill [facility] - Neurology [facility] #2 [place] [address] Brad Thacker MD #[address] [place] [address] Medication Refill Social History Tobacco [...] Telephone Encounter - Yue Mendoza RN - 12/10/2022 8:28 AM CST Medication failed the protocol, provider to review and approve the medication order if appropriate. Requested Prescriptions Pending Prescriptions Disp Refills cyclobenzaprine (FLEXERIL) 10 MG Tablet [Pharmacy Med Name: CYCLOBENZAPRINE 10 MG TABLET] 30 Tablet3 Sig: TAKE 1 TABLET BY MOUTH EVERY DAY AT NIGHT Not Delegated - Muscle Relaxants Protocol Failed - 12/09/2022 8:35 PM Failed - This refill cannot be delegated Passed - Visit with relevant provider in past 12 months or upcoming 90 days Recent Visits Date Type Provider Dept 07/30/22 Office Visit Keri Huynh APRN, STOREKEEPER STEWARD [facility] [place] [facility] Showing recent visits within past 365 days and meeting all other requirements Future Appointments Date Type Provider Dept 01/28/23 Appointment Keri Huynh APRN, STOREKEEPER STEWARD [facility] Showing future appointments within next 90 days and meeting all other requirements R PRODUCTION WORKER documented in this encounter Plan of Treatment Upcoming Encounters Date Type Department Care Team (Late st Contact Info) Description 02/21/2025 9:00 AM CDT Telemedicine [facility] Neurology - [place] #[address] [place] [address] Keri Huynh APRN, STOREKEEPER STEWARD #[address] [place] [address] 04/06/2025 9:00 AM CDT Procedure Visit [facility] Neurology [facility] #2 [place] [address] Brad Thakcer MD #2 [place] [address] documented as of this encounter Visit Diagnoses Diagnosis Muscle spasm Spasm of muscle documented in this encounter Care Teams Auto Tune Up Mechanic Relationship Specialty Start Date End Date Duc Gore, [facility] [address] [place] [address] PCP - General Physician Instrumentation Tech 10/21/16 Rubin Kessler MD [address] [place] [address] Consulting Physician Cardiovascular Disease - Cardiology 05/02/23 Keri Huynh, BUSINESS CONSULTANT, STOREKEEPER STEWARD #[address] [place] [address] Nurse Practitioner Advanced Practice Nurse 07/30/22 Brad Thacker MD #[address] [place] [address] Consulting Physician Neurology 03/21/23 documented as of this encounter
--- NOTE | 2025-01-27 18:36 | ED.WOUNDLAC ---
HPI - Wound/Laceration General Chief Complaint: Wound/Laceration Stated Complaint: laceration left lower leg Source: patient and family Mode of arrival: ambulatory Limitations: no limitations History of Present Illness HPI narrative: this is a 39-year-old female with no significant past medical history was injured with a piece of object while mowing her lawn causing abrasion to the anterior surface of her left lower leg with bruising has good range of motion and tender with palpation no other injuries noted. Onset (ago): hour(s) Location: other Extremity Location: Left: lower leg ( abrasion with bruising anterior surface) Place: outdoors Patient tetanus UTD: No Context: accidental Related Data Home Medications ?Medication ?Instructions ?Recorded ?Confirmed ?Last Taken ?Type cyclobenzaprine 10 mg tablet mg 01/27/25 Unknown History Allergies Allergy/AdvReac Type Severity Reaction Status Date / Time Penicillins Allergy Mild Itching Verified 01/27/25 18:16 Review of Systems Review of Systems: All systems reviewed & are unremarkable except as noted in HPI and below PMFSH Past Medical History Medical History Patient denies medical problems Exam Const: General: healthy appearing and no acute distress Nutritional Appearance: well nourished Orientation/consciousness: patient oriented x3 Chest: Chest palpation & inspection: normal inspection of the chest Resp: Effort & Inspection: normal respiratory effort Auscultation: clear to auscultation bilaterally Cardio: Rate: regular rate Rhythm: regular rhythm Skin: General skin exam: normal color Rashes: no rashes Wounds: wounds noted Other: abrasion to anterior surface of her left sullivan Neuro: General: patient oriented x3, moves all extremities, no meningeal signs and no focal motor deficits Extrem: General: normal to inspection, no clubbing, cyanosis or edema and no pedal edema Course Course Emergency Course: patient was updated with her tetanus and triple antibiotic ointment applied to abrasions. X-ray performed shows no acute fractures. Vital Signs Vital signs: Vital Signs Temperature 36.8 C 01/27/25 18:15 Pulse Rate 103 H 01/27/25 18:15 Respiratory Rate 20 01/27/25 18:15 Blood Pressure 141/99 H 01/27/25 18:15 Pulse Oximetry 98 01/27/25 18:15 Oxygen Delivery Room Air 01/27/25 18:15 Temperature 36.8 C 01/27/25 18:15 Pulse Rate 103 H 01/27/25 18:15 Respiratory Rate 20 01/27/25 18:15 Blood Pressure 141/99 H 01/27/25 18:15 Pulse Oximetry 98 01/27/25 18:15 Oxygen Delivery Room Air 01/27/25 18:15 Critical Care Time Critical Care Time Critical Care Time: No Discharge Plan Discharge Clinical Impression: Abrasion Patient Disposition: Home Condition: Stable Instructions: Antibiotic Form, Skin Avulsion (ED) Additional Instructions: Advised to take medication as prescribed and to follow with primary care physician within 1 week for further evaluation and treatment. Patient Language: Turkmen Prescriptions: New sulfamethoxazole-trimethoprim [Bactrim DS] 800-160 mg tablet 1 tablet PO Q12H Qty: 14 0RF No Action cyclobenzaprine 10 mg tablet Follow-up/Referrals: Sofía,HSILPA Steel [Primary Care Provider] -
--- OUTSIDE RECORDS SUMMARY | 2025-01-27 18:40 | XMS_ITS | Encounter Summary ---
Author Organization [facility] Address [address] [place] [address] Phone Care Team Providers Care Sonographer Name Role Phone Duc Gore Primary Care Provider [phone] Rubin Kessler MD Unavailable Keri Arreola APRN, FORENSIC SCIENCE TECHNICIAN Unavailable [phone] Brad Thacker MD Unavailable [phone] Reason for Visit * Reason Comments Medication Refill Encounter Details Date Type Department Care Team (Late st Contact Info) Description 03/12/2023 Refill [facility] - Neurology [facility] #2 [place] [address] Keri Huynh, CLINICAL DOCUMENTATION DEVELOPER, FORENSIC SCIENCE TECHNICIAN #[address] [place] [address] Medication Refill Social History Tobacco Use Types [...] Info) Description 02/21/2025 9:00 AM CDT [facility]medicine [facility] - [place] #2 [place] [address] Keri Huynh APRN, FORENSIC SCIENCE TECHNICIAN #[address] [place] [address] 04/06/2025 9:00 AM CDT Procedure Visit [facility] Neurology - [place] #[address] [place] [address] Brad Thacker MD [address] [place] [address] documented as of this encounter Visit Diagnoses Diagnosis Low serum vitamin B12 documented in this encounter Care Teams Sonographer Relationship Specialty Start Date End Date Duc Gore PAC [address] [place] [address] PCP - General Physician Hospital Housekeeper 10/21/16 Rubin Kessler MD [address] [place] [address] Consulting Physician Cardiovascular Disease - Cardiology 05/02/23 Keri Huynh APRN, FORENSIC SCIENCE TECHNICIAN #[address] [place] [address] Nurse Practitioner Advanced Practice Nurse 07/30/22 Brad Thacker MD #[address] [place] [address] Consulting Physician Neurology 03/21/23 documented as of this encounter
--- OUTSIDE RECORDS SUMMARY | 2025-01-27 18:40 | XMS_ITS | Encounter Summary ---
Author Organization [facility] Address [address] [place] [address] Phone Care Team Providers Care Police Academy Program Coordinator Name Role Phone Duc Gore Primary Care Provider [phone] Rubin Kessler MD Unavailable Keri Arreola APRN, REED POLISHER Unavailable [phone] Brad Thacker MD Unavailable [phone] Reason for Visit * Reason Comments Medication Refill Encounter Details Date Type Department Care Team (Late st Contact Info) Description 03/11/2023 Refill [facility] - Neu[facility] #2 [place] [address] Keri Huynh, TELECOMMUNICATIONS ADMINISTRATOR, REED POLISHER #[address] [place] [address] Medication Refill Social History Tobacco Use Types [...] Visit Keri Huynh APRN, BRAD [facility] [place] 07/30/22 Office Visit Keri Huynh APRN, REED POLISHER [facility] Showing recent visits within past 365 days and meeting all other requirements Future Appointments Date Type Provider Dept 03/21/23 Appointment Brad Thacker MD [facility] 04/29/23 Appointment Keri Huynh APRN, CNS [facility] Showing future appointments within next 90 days and meeting all other requirements documented in this encounter Plan of Treatment Upcoming Encounters Date Type Department Care Team (Late st Contact Info) Description 02/21/2025 9:00 AM CDT Telemedicine [facility] - Neurology - [place] #[address] [place] [address] Keri Huynh APRN, REED POLISHER [address] [place] [address] 04/06/2025 9:00 AM CDT Procedure Visit [facility] - Neurology - [place] #[address] [place] [address] Brad Thacker MD #[address] [place] [address] documented as of this encounter Visit Diagnoses Diagnosis Chronic migraine without aura, with intractable migraine, so stated, with status migrainosus documented in this encounter Care Teams Police Academy Program Coordinator Relationship Specialty Start Date End Date Duc Gore [facility] [address] [place] [address] PCP - General Physician Boiler Room Operator 10/21/16 Rubni Kessler MD [address] [place] [address] Consulting Physician Cardiovascular Disease - Cardiology 05/02/23 Keri Huynh APRN, REED POLISHER #[address] [place] [address] Nurse Practitioner Advanced Practice Nurse 07/30/22 Brad Thacker MD #[address] [place] [address] Consulting Physician Neurology 03/21/23 documented as of this encounter
--- OUTSIDE RECORDS SUMMARY | 2025-01-27 18:41 | XMS_ITS | Encounter Summary ---
Author Organization [facility] Address [address] [place] [address] Phone Care Team Providers Care Fingerprint Expert Name Role Phone KaylaDuc spring Primary Care Provider [phone] Rubin Kessler MD Unavailable Keri Arreola APRN, MACHINE SHOP LEAD MAN Unavailable +- [phone] Brad Thacker MD Unavailable [phone] Reason for Visit * Reason Onset Date Comments Prior Authorization 01/11/2025 Encounter Details Date Type Department Care Team (Late st Contact Info) Description 01/11/2025 Telephone [facility] Specialty [address] [place] [address] Keri Huynh, HAZARDOUS WASTE TECHNICIAN, MACHINE SHOP LEAD MAN [address] [place] [address] Prior Authorization Social History Tobacco Use Types [...] please let me know. Thanks Belén Walker [facility] Specialty documented in this encounter Plan of Treatment Upcoming Encounters Date Type Department Care Team (Late st Contact Info) Description 02/21/2025 9:00 AM CDT Telemedicine [facility] - Neurology - [place] #2 [place] [address] Keri Huynh APRN, MACHINE SHOP LEAD MAN [address]2 [place] [address] 04/06/2025 9:00 AM CDT Procedure Visit [facility] - Neurology - [place] #[address] [place] [address] Brad Thacker MD #2 [place] [address] documented as of this encounter Visit Diagnoses Not on filedocumented in this encounter Care Teams Fingerprint Expert Relationship Specialty Start Date End Date Duc Gore PAC [address] [place] [address] PCP - General Physician Crystal Mounter 10/21/16 Rubin Kessler MD [address] [place] [address] Consulting Physician Cardiovascular Disease - Cardiology 05/02/23 Keri Huynh APRN, MACHINE SHOP LEAD MAN [address] [place] [address] Nurse Practitioner Advanced Practice Nurse 07/30/22 Brad Thacker MD #[address] [place] [address] Consulting Physician Neurology 03/21/23 documented as of this encounter
--- OUTSIDE RECORDS SUMMARY | 2025-01-27 18:41 | XMS_ITS | Encounter Summary ---
Author Organization [facility] Address [address] [place] [address] Phone Care Team Providers Care Medical Instrument Cable Fabricator Name Role Phone Duc Gore Primary Care Provider [phone] Rubin Kessler MD Unavailable Keri Arreola APRN, CAMPUS AMBASSADOR Unavailable +- [phone] Brad Thacker MD Unavailable [phone] Reason for Visit * Reason Comments Medication Refill Encounter Details Date Type Department Care Team (Late st Contact Info) Description 01/27/2025 Refill [facility] #2 [place] [address] Keri Huynh, TOWN ADMINISTRATOR, CAMPUS AMBASSADOR #2 [place] [address] Medication Refill Social History Tobacco Use Types [...] Info) Description 02/21/2025 9:00 AM CDT [facility]icine [facility] - Neurology - [place] #[address] [place] [address] Keri Huynh APRN, CAMPUS AMBASSADOR [address] [place] [address] 04/06/2025 9:00 AM CDT [facility] - [place] [address] [place] [address] Brad Thacker MD [address] [place] [address] documented as of this encounter Visit Diagnoses Diagnosis Chronic migraine without aura, with intractable migraine, so stated, with status migrainosus documented in this encounter Care Teams Medical Instrument Cable Fabricator Relationship Specialty Start Date End Date Duc Gore PAC [address] [place] [address] PCP - General Physician Sheet Metal Worker Supervisor 10/21/16 Rubin Kessler MD [address] [place] [address] Consulting Physician Cardiovascular Disease - Cardiology 05/02/23 Keri Huynh APRN, CAMPUS AMBASSADOR [address] [place] [address] Nurse Practitioner Advanced Practice Nurse 07/30/22 Brad Thacker MD [address] [place] [address] Consulting Physician Neurology 03/21/23 documented as of this encounter
--- OUTSIDE RECORDS SUMMARY | 2025-01-27 18:41 | XMS_ITS | Encounter Summary ---
Author Organization [facility] Address [address] [place] [address] Phone Care Team Providers Care Nickel Operator Name Role Phone Duc Gore Primary Care Provider [phone] Rubin Kessler MD Unavailable Keri Arreola APRN, FORM TAMPING MACHINE OPERATOR Unavailable [phone]- [phone] Brad Thacker MD Unavailable [phone] Reason for Visit * Reason Comments Medication Refill Encounter Details Date Type Department Care Team (Late Contact Info) Description 09/20/2020 [facility]ill [facility] #1 [place] [address] Brad Thacker MD #2 [place] [address] Medication Refill Social History Tobacco [...] Info) Description 02/21/2025 9:00 AM CDT Telemedicine [facility] - Neurology - [place] #2 [place] [address] Keri Huynh APRN, FORM TAMPING MACHINE OPERATOR #[address] [place] [address] 04/06/2025 9:00 AM CDT Procedure Visit [facility] - Neurology - [place] [address]2 [place] [address] Brad Thacker MD [address] [place] [address] documented as of this encounter Visit Diagnoses Diagnosis Muscle spasm Spasm of muscle documented in this encounter Care Teams Nickel Operator Relationship Specialty Start Date End Date Duc Gore [facility] [address] [place] [address] PCP - General Physician Cyber Intel Planner 10/21/16 Rubin Kessler MD [address] [place] [address] Consulting Physician Cardiovascular Disease - Cardiology 05/02/23 Keri Huynh APRN, FORM TAMPING MACHINE OPERATOR [address] [place] [address] Nurse Practitioner Advanced Practice Nurse 07/30/22 Brad Thacker MD [address] [place] [address] Consulting Physician Neurology 03/21/23 documented as of this encounter
--- OUTSIDE RECORDS SUMMARY | 2025-01-27 18:41 | XMS_ITS | Encounter Summary ---
Author Organization [facility] Address [address] [place] [address] Phone Care Team Providers Care Pad Assembler Name Role Phone Duc Gore Primary Care Provider [phone] Rubin Kessler MD Unavailable Keri Arreola APRN, PNEUMATIC TUBE OPERATOR Unavailable [phone] Brad Thacker MD Unavailable [phone] Reason for Visit * Reason Comments Medication Refill Encounter Details Date Type Department Care Team (Late st Contact Info) Description 10/06/2023 Refill [facility] - [facility] #2 [place] [address] Keri Huynh, EXTERMINATOR, PNEUMATIC TUBE OPERATOR #[address] [place] [address] Medication Refill Social History Tobacco Use Types [...] Dept 09/12/23 Procedure Visit Brad Thacker MD [facility] Neurology [facility] 06/13/23 Procedure Visit Brad Thacker, [facility] 06/05/23 Office Visit Keri Huynh APRN, CNS [facility] 03/21/23 Procedure Visit Brad Thacker MD [facility] Neurology [facility] 01/28/23 Office Visit eKri Huynh APRN, BRAD [facility] Showing recent visits within past 365 days and meeting all other requirements Future Appointments Date Type Provider Dept 10/30/23 Appointment Keri Huynh APRN, CNS [facility] 12/12/23 Appointment Brad Thacker MD [facility] Showing future appointments within next 90 days and meeting all other requirements LLERY SPECIALIST documented in this encounter Plan of Treatment Upcoming Encounters Date Type Department Care Team (Late st Contact Info) Description 02/21/2025 9:00 AM CDT Telemedicine [facility] - Neurology - [place] [address] [place] [address] Keri Huynh APRN, PNEUMATIC TUBE OPERATOR [address] [place] [address] 04/06/2025 9:00 AM CDT Procedure Visit [facility] - Neurology - [place] [address] [place] [address] Brad Thacker MD [address] [place] [address] documented as of this encounter Visit Diagnoses Diagnosis Muscle spasm Spasm of muscle documented in this encounter Care Teams Pad Assembler Relationship Specialty Start Date End Date Duc Gore, PAC [address] [place] [address] PCP - General Physician Housekeeper Child Care 10/21/16 Rubin Kessler MD [address] [place] [address] Consulting Physician Cardiovascular Disease - Cardiology 05/02/23 Keri Huynh APRN, PNEUMATIC TUBE OPERATOR [address] [place] [address] Nurse Practitioner Advanced Practice Nurse 07/30/22 Brad Thacker MD [address] [place] [address] Consulting Physician Neurology 03/21/23 documented as of this encounter
--- OUTSIDE RECORDS SUMMARY | 2025-01-27 18:41 | XMS_ITS | Encounter Summary ---
Author Organization [facility] Address [address] [place] [address] Phone Care Team Providers Care Carpenter Cradle And Dolly Name Role Phone Duc Gore Primary Care Provider [phone] Rubin Kessler MD Unavailable Keri Arreola APRN, MESMERIST Unavailable + [phone] Brad Thacker MD Unavailable [phone] Reason for Visit * Reason Comments Medication Refill Encounter Details Date Type Department Care Team (Late Contact Info) Description 06/21/2021 Refill [facility] #2 [place] [address] Brad Thacker MD [address] [place] [address] Medication Refill Social History Tobacco [...] [facility] - Neurology - [place] #[address] [place] [address] Keri Huynh APRN, MESMERIST [address] [place] [address] 04/06/2025 9:00 AM CDT Procedure Visit [facility] - Neurology - [place] [address] [place] [address] Brad Thacker MD [address] [place] [address] documented as of this encounter Visit Diagnoses Diagnosis Muscle spasm Spasm of muscle documented in this encounter Care Teams Carpenter Cradle And Dolly Relationship Specialty Start Date End Date Duc Gore [facility] [address] [place] [address] PCP - General Physician Dye Mixer 10/21/16 Rubin Kessler MD [address] [place] [address] Consulting Physician Cardiovascular Disease - Cardiology 05/02/23 Keri Huynh APRN, MESMERIST [address] [place] [address] Nurse Practitioner Advanced Practice Nurse 07/30/22 Brad Thacker MD #[address] [place] [address] Consulting Physician Neurology 03/21/23 documented as of this encounter
--- OUTSIDE RECORDS SUMMARY | 2025-01-27 18:41 | XMS_ITS | Encounter Summary ---
Author Organization [facility] Address [address] [place] [address] Phone Care Team Providers Care Porter Bath Name Role Phone Duc Gore Primary Care Provider [phone] Rubin Kessler MD Unavailable Keri Arreola APRN, SACK REPAIRER Unavailable [phone] Brad Thacker MD Unavailable Reason for Visit * Reason Comments Medication Refill Encounter Details Date Type Department Care Team (Late st Contact Info) Description 05/27/2023 Refill [facility] - Neurology [facility] #2 [place] [address] Keri Huynh, MARINE ELECTRICIAN APPRENTICE, SACK REPAIRER [address] [place] [address] Medication Refill Social History Tobacco Use Types [...] Dept 03/21/23 Procedure Visit Brad Thacker MD [facility] Neurology [facility] 01/28/23 Office Visit Keri Huynh APRN, BRAD [facility] Neurology [facility] 07/30/22 Office Visit Keri Huynh APRN, BRAD [facility] Neurology [facility] Showing recent visits within past 365 days and meeting all other requirements Future Appointments Date Type Provider Dept 06/05/23 Appointment Keri Huynh APRN, CNS [facility] Neurology [facility] 06/13/23 Appointment Brad Thacker MD [facility] Neurology [facility] Showing future appointments within next 90 days and meeting all other requirements documented in this encounter Plan of Treatment Upcoming Encounters Date Type Department Care Team (Late st Contact Info) Description 02/21/2025 9:00 AM CDT Telemedicine [facility] - Neurology - [place] [address] [place] [address] Keri Huynh APRN, SACK REPAIRER [address] [place] [address] 04/06/2025 9:00 AM CDT Procedure Visit [facility] - Neurology - [place] #[address] [place] [address] Brad Thacker MD [address] [place] [address] documented as of this encounter Visit Diagnoses Diagnosis Chronic migraine without aura, with intractable migraine, so stated, with status migrainosus documented in this encounter Care Teams Porter Bath Relationship Specialty Start Date End Date Duc Gore PAC [address] [place] [address] PCP - General Physician Dovetail Machine Operator 10/21/16 Rubin Kessler MD [address] [place] [address] Consulting Physician Cardiovascular Disease - Cardiology 05/02/23 Keri Huynh, MARINE ELECTRICIAN APPRENTICE, SACK REPAIRER [address] [place] [address] Nurse Practitioner Advanced Practice Nurse 07/30/22 Brad Thacker MD #[address] [place] [address] Consulting Physician Neurology 03/21/23 documented as of this encounter
--- OUTSIDE RECORDS SUMMARY | 2025-01-27 18:41 | XMS_ITS | Encounter Summary ---
Author Organization [facility] Address [address] [place] [address] Phone Care Team Providers Care Sephora Product Consultant Name Role Phone Duc Gore Primary Care Provider [phone] Rubin Kessler MD Unavailable Keri Arreola APRN, INSPECTOR AIR CARRIER Unavailable [phone]- [phone] Brad Thacker MD Unavailable [phone] Reason for Visit * Reason Comments Medication Refill Encounter Details Date Type Department Care Team (Late st Contact Info) Description 04/14/2020 Refill [facility] - [facility] #1 [place] [address] Brad Thacker MD #2 [place] [address] Medication Refill Social History Tobacco [...] 02/21/2025 9:00 AM CDT Telemedicine [facility] - Neurology - [place] #2 [place] [address] Keri Huynh APRN, INSPECTOR AIR CARRIER [address] [place] [address] 04/06/2025 9:00 AM CDT Procedure Visit [facility] - Neurology - [place] #[address] [place] [address] Brad Thacker MD #[address] [place] [address] documented as of this encounter Visit Diagnoses Not on filedocumented in this encounter Care Teams Sephora Product Consultant Relationship Specialty Start Date End Date Duc Gore PAC [address] [place] [address] PCP - General Physician Wallpaperer Helper 10/21/16 Rubin Kessler MD [address] [place] [address] Consulting Physician Cardiovascular Disease - Cardiology 05/02/23 Keri Huynh APRN, INSPECTOR AIR CARRIER [address] [place] [address] Nurse Practitioner Advanced Practice Nurse 07/30/22 Brad Thacker MD #[address] [place] [address] Consulting Physician Neurology 03/21/23 documented as of this encounter
--- OUTSIDE RECORDS SUMMARY | 2025-01-27 18:41 | XMS_ITS | Encounter Summary ---
Author Organization [facility] Address [address] [place] [address] Phone Care Team Providers Care Lead Handler Name Role Phone Duc Gore Primary Care Provider [phone] Rubin Kessler MD Unavailable Keri Arreola APRN, CLAIMS ANALYST Unavailable + [phone] Brad Thacker MD Unavailable [phone] Reason for Visit * Reason Comments Medication Refill Encounter Details Date Type Department Care Team (Late st Contact Info) Description 10/22/2021 Refill [facility] - [facility] #2 [place] [address] Brad Thacker MD #[address] [place] [address] Medication Refill Social History Tobacco [...] Info) Description 02/21/2025 9:00 AM CDT Telemedicine [facility] - Neurology - [place] #2 [place] [address] Keri Huynh APRN, CLAIMS ANALYST #[address] [place] [address] 04/06/2025 9:00 AM CDT Procedure Visit [facility] - [facility]rology - [place] #2 [place] [address] Brad Thacker MD #[address] [place] [address] documented as of this encounter Visit Diagnoses Diagnosis Muscle spasm Spasm of muscle documented in this encounter Care Teams Lead Handler Relationship Specialty Start Date End Date Duc Gore, [facility] [address] [place] [address] PCP - General Physician Manager Freelance 10/21/16 Rubin Kessler MD [address] [place] [address] Consulting Physician Cardiovascular Disease - Cardiology 05/02/23 Keri Huynh APRN, CLAIMS ANALYST #[address] [place] [address] Nurse Practitioner Advanced Practice Nurse 07/30/22 Brad Thacker MD #[address] [place] [address] Consulting Physician Neurology 03/21/23 documented as of this encounter
--- OUTSIDE RECORDS SUMMARY | 2025-01-27 18:41 | XMS_ITS | Clinical Summary ---
Author Organization [facility] Address #[address] [place] [address] Phone Care Team Providers Care Skein Bander Name Role Phone Duc Gore Primary Care Provider [phone] Rubin Kessler MD Unavailable Unavai Keri Yadav APRN, METAL FABRICATOR WELDER Unavailable [phone] Brda Thacker MD Unavailable [phone] Allergies Active Allergy Reactions Criticality Noted Date [...] Type Department Care Team Description 01/27/2025 Refill [facility] Neurology [facility] #2 [place] [address] Keri Huynh APRN, METAL FABRICATOR WELDER Medication Refill 01/14/2025 9:15 AM CDT Procedure Visit [facility] Neurology [facility] [address]2 [place] [address] Brad Thacker MD Chronic migraine without aura, with intractable migraine, so stated, with status migrainosus Discharge Disposition: Discharged to home or Selfcare 01/14/2025 Travel 01/11/2025 Telephone [facility] Specialty [address] [place] [address] Keri Huynh APRN, METAL FABRICATOR WELDER Prior Authorization 12/31/2024 Telephone [facility] Neurology [facility] #2 [place] [address] Brad Thacker MD 11/09/2024 Telephone [facility] - Neurology - [place] #[address] [place] [address] Keri Huynh APRN, METAL FABRICATOR WELDER from Last 3 Months Family History Medical [...] Comments Blood Pressure 122/76 10/30/2023 11:34 AM PATIENT PORTAL CONCIERGE Pulse 86 10/30/2023 11:34 AM PATIENT PORTAL CONCIERGE Temperature 36.2 C (97.1 F) 10/30/2023 11:34 AM PATIENT PORTAL CONCIERGE Respiratory Rate 20 10/30/2023 11:34 AM PATIENT PORTAL CONCIERGE Oxygen Saturation 100% 10/30/2023 11:34 AM PATIENT PORTAL CONCIERGE Inhaled Oxygen Concentration - - Weight 67.6 kg (149 lb) 10/30/2023 11:34 AM PATIENT PORTAL CONCIERGE Height 165.1 cm (5' 5 ) 10/30/2023 11:34 AM PATIENT PORTAL CONCIERGE Body Mass Index 24.79 10/30/2023 11:34 AM PATIENT PORTAL CONCIERGE Plan of Treatment Upcoming Encounters Date Type Department Care Team (Late st Contact Info) Description 02/21/2025 9:00 AM CDT [facility] - [place] #2 [place] [address] eKri Huynh APRN, METAL FABRICATOR WELDER #[address] [place] [address] 04/06/2025 9:00 AM CDT Procedure Visit [facility] - Neurology [facility] [address] [place] [address] Brad Thacker MD [address] [place] [address] Health Maintenance Due Date Last Done Comments [...] procedure with no complications. Brad Thacker MD [place] - SURGERY Final Result * OPHTHALMOLOGY CONSULT (01/03/2025 12:00 AM CDT) 01/03/2025 Provider Scan GENERIC SCAN ORDERS CONSULT Yoon lorenzo Result SCAN from Last 3 Months Insurance CIG CIGNA Care Teams Skein Bander Relationship Specialty Start Date End Date Duc Gore PAC [address] [place] [address] PCP - General Physician Communication Studies Professor 10/21/16 Rubin Kessler MD [address] [place] [address] Consulting Physician Cardiovascular Disease - Cardiology 05/02/23 Keri Huynh APRN, METAL FABRICATOR WELDER #[address] [place] [address] Nurse Practitioner Advanced Practice Nurse 07/30/22 Brad Thacker MD #[address] [place] [address] Consulting Physician Neurology 03/21/23
--- OUTSIDE RECORDS SUMMARY | 2025-01-27 18:41 | XMS_ITS | Encounter Summary ---
Author Organization [facility] Address [address] [place] [address] Phone Care Team Providers Care Vascular Nurse Name Role Phone Duc Gore Primary Care Provider [phone] Rubin Kessler MD Unavailable Keri Arreola APRN, BEAUTY SPECIALIST Unavailable [phone] Brad Thacker MD Unavailable [phone] Reason for Visit * Reason Comments Medication Refill Encounter Details Date Type Department Care Team (Late st Contact Info) Description 11/22/2020 Refill [facility] - [facility] #1 [place] [address] Brad Thacker MD #[address] [place] [address] Medication Refill Social History Tobacco [...] Info) Description 02/21/2025 9:00 AM CDT Telemedicine [facility] - Neurology - [place] #[address] [place] [address] Keri Huynh APRN, BEAUTY SPECIALIST [address] [place] [address] 04/06/2025 9:00 AM CDT Procedure Visit [facility] - Neurology - [place] #[address] [place] [address] Brad Thacker MD #[address] [place] [address] documented as of this encounter Visit Diagnoses Diagnosis Muscle spasm Spasm of muscle documented in this encounter Care Teams Vascular Nurse Relationship Specialty Start Date End Date Duc Gore [facility] [address] [place] [address] PCP - General Physician Belt And Link Assembly Supervisor 10/21/16 Rubin Kessler MD [address] [place] [address] Consulting Physician Cardiovascular Disease - Cardiology 05/02/23 Keri Huynh APRN, BEAUTY SPECIALIST #[address] [place] [address] Nurse Practitioner Advanced Practice Nurse 07/30/22 Brad Thacker MD #[address] [place] [address] Consulting Physician Neurology 03/21/23 documented as of this encounter
--- OUTSIDE RECORDS SUMMARY | 2025-01-27 18:41 | XMS_ITS | Encounter Summary ---
Author Organization [facility] Address [address] [place] [address] Phone Care Team Providers Care Wall And Floor Tiler Name Role Phone Duc Gore Primary Care Provider [phone] Rubin Kessler MD Unavailable Keri Arreola APRN, BALLET SOLOIST Unavailable [phone] Brad Tahcker MD Unavailable [phone] Reason for Visit * Reason Comments Medication Refill Encounter Details Date Type Department Care Team (Late st Contact Info) Description 02/19/2021 Refill [facility] Neu[facility] #1 [place] [address] Brad Thacker MD #[address] [place] [address] Medication Refill Social History Tobacco [...] Info) Description 02/21/2025 9:00 AM CDT Telemedicine [facility] - Neurology - [place] #2 [place] [address] Keri Huynh APRN, BALLET SOLOIST #[address] [place] [address] 04/06/2025 9:00 AM CDT Procedure Visit [facility] - Neurology - [place] #2 [place] [address] Brad Thacker MD #[address] [place] [address] documented as of this encounter Visit Diagnoses Diagnosis Muscle spasm Spasm of muscle documented in this encounter Care Teams Wall And Floor Tiler Relationship Specialty Start Date End Date Duc Gore [facility] [address] [place] [address] PCP - General Physician Manager Fashion 10/21/16 Rubin Kessler MD [address] [place] [address] Consulting Physician Cardiovascular Disease - Cardiology 05/02/23 Keri Huynh APRN, BALLET SOLOIST #[address] [place] [address] Nurse Practitioner Advanced Practice Nurse 07/30/22 Brad Thacker MD #[address] [place] [address] Consulting Physician Neurology 03/21/23 documented as of this encounter
--- OUTSIDE RECORDS SUMMARY | 2025-01-27 18:41 | XMS_ITS | Encounter Summary ---
Author Organization [facility] Address [address] [place] [address] Phone Care Team Providers Care Laborer Dairy Farm Name Role Phone Duc Gore Primary Care Provider [phone] Rubin Kessler MD Unavailable Keri Arreola APRN, ACCOUNT CLASSIFICATION CLERK Unavailable +- [phone] Brad Thacker MD Unavailable [phone] Reason for Visit * Reason Comments Medication Refill Encounter Details Date Type Department Care Team (Late st Contact Info) Description 07/21/2021 Refill [facility] - Neurology [facility] #2 [place] [address] Brad Thacker MD #2 [place] [address] Medication Refill Social History Tobacco [...] Description 02/21/2025 9:00 AM CDT [facility] [place] #2 [place] [address] Keri Huynh APRN, ACCOUNT CLASSIFICATION CLERK #2 [place] [address] 04/06/2025 9:00 AM CDT Procedure Visit [facility] Neurology - [place] #2 [place] [address] Brad Thacker MD #2 [place] [address] documented as of this encounter Visit Diagnoses Diagnosis Muscle spasm Spasm of muscle documented in this encounter Care Teams Laborer Dairy Farm Relationship Specialty Start Date End Date Duc Gore PAC [address] [place] [address] PCP - General Physician Thermal Technician 10/21/16 Rubin Kessler MD [address] [place] [address] Consulting Physician Cardiovascular Disease - Cardiology 05/02/23 Keri Huynh FLOW SPECIALIST, ACCOUNT CLASSIFICATION CLERK #2 [place] [address] Nurse Practitioner Advanced Practice Nurse 07/30/22 Brad Thacker MD #2 [place] [address] Consulting Physician Neurology 03/21/23 documented as of this encounter
--- OUTSIDE RECORDS SUMMARY | 2025-01-27 18:41 | XMS_ITS | Encounter Summary ---
Author Organization [facility] Address [address] [place] [address] Phone Care Team Providers Care Rag Washer Name Role Phone Duc Gore Primary Care Provider [phone] Rubin Kessler MD Unavailable Keri Arreola APRN, GOLF PROFESSIONAL Unavailable +- [phone] Brad Thacker MD Unavailable +[phone] Reason for Visit * Reason Comments Medication Refill Encounter Details Date Type Department Care Team (Late st Contact Info) Description 12/24/2020 Refill [facility] #1 [place] [address] Brad Thacker MD #2 [place] [address] Medication Refill Social History Tobacco [...] 9:00 AM CDT Telemedicine [facility] - Neurology - [place] #2 [place] [address] Keri Huynh APRN, GOLF PROFESSIONAL #2 [place] [address] 04/06/2025 9:00 AM CDT Procedure Visit [facility] - Neurology - [place] #2 [place] [address] Brad Thacker MD #2 [place] [address] documented as of this encounter Visit Diagnoses Diagnosis Muscle spasm Spasm of muscle documented in this encounter Care Teams Rag Washer Relationship Specialty Start Date End Date Duc Gore [facility] [address] [place] [address] PCP - General Physician Land Department Head 10/21/16 Rubin Kessler MD [address] [place] [address] Consulting Physician Cardiovascular Disease - Cardiology 05/02/23 Keri Huynh APRN, GOLF PROFESSIONAL #2 [place] [address] Nurse Practitioner Advanced Practice Nurse 07/30/22 Brad Thacker MD #2 [place] [address] Consulting Physician Neurology 03/21/23 documented as of this encounter
--- OUTSIDE RECORDS SUMMARY | 2025-01-27 18:41 | XMS_ITS | Encounter Summary ---
Author Organization [facility] Address [address] [place] [address] Phone Care Team Providers Care Atm Servicer Name Role Phone Duc Gore Primary Care Provider [phone] Rubin Kessler MD Unavailable Keri Arreola APRN, GEAR CHANGER Unavailable + [phone] Brad Thacker MD Unavailable [phone] Reason for Visit * Reason Comments Medication Refill Encounter Details Date Type Department Care Team (Late st Contact Info) Description 08/24/2021 Refill [facility] - Neurology [facility] #2 [place] [address] Brad Thacker MD #2 [place] [address] Medication Refill Social History Tobacco [...] - 08/24/2021 9:02 AM CST . . OLOGIC TECHNICIAN documented in this encounter Plan of Treatment Upcoming Encounters Date Type Department Care Team (Late st Contact Info) Description 02/21/2025 9:00 AM CDT Telemedicine [facility] Neurology [facility] #2 [place] [address] Keri Huynh SALES AND IN HOME DELIVERY SPECIALIST, GEAR CHANGER #2 [place] [address] 04/06/2025 9:00 AM CDT Procedure Visit [facility] #2 [place] [address] Brad Thacker MD #2 [place] [address] documented as of this encounter Visit Diagnoses Diagnosis Muscle spasm Spasm of muscle documented in this encounter Care Teams Atm Servicer Relationship Specialty Start Date End Date Duc Gore PAC [address] [place] [address] PCP - General Physician Rubber Calender Helper 10/21/16 Rubin Kessler MD [address] [place] [address] Consulting Physician Cardiovascular Disease - Cardiology 05/02/23 Keri Huynh, SALES AND IN HOME DELIVERY SPECIALIST, GEAR CHANGER #2 [place] [address] Nurse Practitioner Advanced Practice Nurse 07/30/22 Brad Thacker MD #2 [place] [address] Consulting Physician Neurology 03/21/23 documented as of this encounter
--- OUTSIDE RECORDS SUMMARY | 2025-01-27 18:41 | XMS_ITS | Encounter Summary ---
Author Organization [facility] Address [address] [place] [address] Phone Care Team Providers Care Farm Worker Name Role Phone Duc Gore Primary Care Provider [phone] Rubin Kessler MD Unavailable Keri Arreola APRN, LAN ENGINEER Unavailable +- [phone] Brad Thacker MD Unavailable [phone] Reason for Visit * Reason Comments Medication Refill Encounter Details Date Type Department Care Team (Late st Contact Info) Description 01/23/2021 Refill [facility] #1 [place] [address] Brad Thacker MD #2 [place] [address] Medication Refill Social History Tobacco [...] Info) Description 02/21/2025 9:00 AM CDT Telemedicine [facility] - Neurology - [place] #2 [place] [address] Keri Huynh APRN, LAN ENGINEER #2 [place] [address] 04/06/2025 9:00 AM CDT Procedure Visit [facility] - Neurology - [place] #2 [place] [address] Brad Thacker MD #2 [place] [address] documented as of this encounter Visit Diagnoses Diagnosis Muscle spasm Spasm of muscle documented in this encounter Care Teams Farm Worker Relationship Specialty Start Date End Date Duc Gore [facility] [address] [place] [address] PCP - General Physician Customer Advocate 10/21/16 Rubin Kessler MD [address] [place] [address] Consulting Physician Cardiovascular Disease - Cardiology 05/02/23 Keri Huynh APRN, LAN ENGINEER #[address] [place] [address] Nurse Practitioner Advanced Practice Nurse 07/30/22 Brad Thacker MD #2 [place] [address] Consulting Physician Neurology 03/21/23 documented as of this encounter
--- OUTSIDE RECORDS SUMMARY | 2025-01-27 18:41 | XMS_ITS | Encounter Summary ---
Author Organization [facility] Address [address] [place] [address] Phone Care Team Providers Care Painter Ski Edge Name Role Phone Duc Gore Primary Care Provider [phone] Rubin Kessler MD Unavailable Keri Arreola APRN, MACHINE CEMENTER AND FOLDER Unavailable + [phone] Brad Thacker MD Unavailable [phone] Reason for Visit * Reason Comments Medication Refill Encounter Details Date Type Department Care Team (Late st Contact Info) Description 09/25/2021 Refill [facility] - Neurology [facility] #2 [place] [address] Brad Thacker MD #2 [place] [address] Medication Refill Social History Tobacco [...] RN - 09/25/2021 2:02 PM CST . HOLOGY PHYSICIAN documented in this encounter Plan of Treatment Upcoming Encounters Date Type Department Care Team (Late st Contact Info) Description 02/21/2025 9:00 AM CDT Telemedicine [facility] Neurology [facility] #2 [place] [address] Keri Huynh APRN, MACHINE CEMENTER AND FOLDER #2 [place] [address] 04/06/2025 9:00 AM CDT Procedure Visit [facility] Neurology [facility] #2 [place] [address] Brad Thacker MD #[address] [place] [address] documented as of this encounter Visit Diagnoses Diagnosis Muscle spasm Spasm of muscle documented in this encounter Care Teams Painter Ski Edge Relationship Specialty Start Date End Date Duc Gore PAC [address] [place] [address] PCP - General Physician Class A Regional Truck Driver 10/21/16 Rubin Kessler MD [address] [place] [address] Consulting Physician Cardiovascular Disease - Cardiology 05/02/23 Keri Huynh MATERIALS DIRECTOR, MACHINE CEMENTER AND FOLDER #2 [place] [address] Nurse Practitioner Advanced Practice Nurse 07/30/22 Brad Thacker MD #2 [place] [address] Consulting Physician Neurology 03/21/23 documented as of this encounter
--- OUTSIDE RECORDS SUMMARY | 2025-01-27 18:41 | XMS_ITS | Encounter Summary ---
Author Organization [facility] Address [address] [place] [address] Phone Care Team Providers Care Machine Bunch Maker Name Role Phone Duc Gore Primary Care Provider [phone] Rubin Kessler MD Unavailable Keri Arreola APRN, REIMBURSEMENT MANAGER Unavailable + [phone] Brad Thacker MD Unavailable [phone] Reason for Visit * Reason Comments Medication Refill Encounter Details Date Type Department Care Team (Late st Contact Info) Description 11/21/2021 Refill [facility] #2 [place] [address] Brad Thacker MD #2 [place] [address] Medication Refill Social History Tobacco [...] [facility] - Neurology - [place] #2 [place] [address] Keri Huynh APRN, REIMBURSEMENT MANAGER #[address] [place] [address] 04/06/2025 9:00 AM CDT Procedure Visit [facility] - Neurology - [place] #2 [place] [address] Brad Thacker MD #2 [place] [address] documented as of this encounter Visit Diagnoses Diagnosis Muscle spasm Spasm of muscle documented in this encounter Care Teams Machine Bunch Maker Relationship Specialty Start Date End Date Duc Gore, [facility] [address] [place] [address] PCP - General Physician 911 Operator 10/21/16 Rubin Kessler MD [address] [place] [address] Consulting Physician Cardiovascular Disease - Cardiology 05/02/23 Keri Huynh APRN, REIMBURSEMENT MANAGER #[address] [place] [address] Nurse Practitioner Advanced Practice Nurse 07/30/22 Brad Thacker MD #[address] [place] [address] Consulting Physician Neurology 03/21/23 documented as of this encounter
--- OUTSIDE RECORDS SUMMARY | 2025-01-27 18:41 | XMS_ITS | Encounter Summary ---
Author Organization [facility] Address [address] [place] [address] Phone Care Team Providers Care Warehouse Packer Name Role Phone Duc Gore Primary Care Provider [phone] Rubin Kessler MD Unavailable Keri Arreola APRN, MARKETING COORDINATOR Unavailable +- [phone] Brad Thacker MD Unavailable [phone] Reason for Visit * Reason Comments Medication Refill Encounter Details Date Type Department Care Team (Late st Contact Info) Description 05/27/2023 Refill [facility] - Neurology [facility] #2 [place] [address] Brad Thacker MD #2 [place] [address] Medication Refill Social History Tobacco [...] Dept 03/21/23 Procedure Visit Brad Thacker [facility] Neurology [facility] 01/28/23 Office Visit Keri Huynh APRN, BRAD [facility] Neurology [facility] 07/30/22 Office Visit Keri Huynh APRN, BRAD [facility] Neurology [facility] Showing recent visits within past 365 days and meeting all other requirements Future Appointments Date Type Provider Dept 06/05/23 Appointment Keri Huynh APRN, CNS [facility] Neurology [facility] 06/13/23 Appointment Brad Thacker MD [facility] Neurology [facility] Showing future appointments within next 90 days and meeting all other requirements documented in this encounter Plan of Treatment Upcoming Encounters Date Type Department Care Team (Late st Contact Info) Description 02/21/2025 9:00 AM CDT Telemedicine [facility] - Neurology - [place] #2 [place] [address] Keri Huynh APRN, MARKETING COORDINATOR #[address] [place] [address] 04/06/2025 9:00 AM CDT Procedure Visit [facility] - Neurology - [place] #2 [place] [address] Brad Thacker MD #2 [place] [address] documented as of this encounter Visit Diagnoses Diagnosis Muscle spasm Spasm of muscle documented in this encounter Care Teams Warehouse Packer Relationship Specialty Start Date End Date Duc Gore, PAC [address] [place] [address] PCP - General Physician Semiconductor Wafers Marker 10/21/16 Rubin Kessler MD [address] [place] [address] Consulting Physician Cardiovascular Disease - Cardiology 05/02/23 Keri Huynh APRN, MARKETING COORDINATOR #[address] [place] [address] Nurse Practitioner Advanced Practice Nurse 07/30/22 Brad Thacker MD #[address] [place] [address] Consulting Physician Neurology 03/21/23 documented as of this encounter
--- OUTSIDE RECORDS SUMMARY | 2025-01-27 18:41 | XMS_ITS | Encounter Summary ---
Author Organization [facility] Address [address] [place] [address] Phone Care Team Providers Care Supervisor Fabrication And Assembly Name Role Phone Duc Gore Primary Care Provider Rubin Kessler MD Unavailable Keri Arreola APRN, EDGE STITCHER Unavailable +- [phone] Brad Thacker MD Unavailable [phone] Reason for Visit * Reason Comments Medication Refill Encounter Details Date Type Department Care Team (Late Contact Info) Description 05/20/2020 Refill [facility] #1 [place] [address] Brad Thacker MD #2 [place] [address] Medication Refill Social History Tobacco [...] Description 02/21/2025 9:00 AM CDT Telemedicine [facility] - Neurology - [place] #2 [place] [address] Keri Huynh APRN, EDGE STITCHER #[address] [place] [address] 04/06/2025 9:00 AM CDT Procedure Visit [facility] - Neurology - [place] #2 [place] [address] Brad Thacker MD #[address] [place] [address] documented as of this encounter Visit Diagnoses Not on filedocumented in this encounter Care Teams Supervisor Fabrication And Assembly Relationship Specialty Start Date End Date Duc Gore, [facility] [address] [place] [address] PCP - General Physician Turret Lathe Set Up Operator 10/21/16 Rubin Kessler MD [address] [place] [address] Consulting Physician Cardiovascular Disease - Cardiology 05/02/23 Keri Huynh APRN, EDGE STITCHER #[address] [place] [address] Nurse Practitioner Advanced Practice Nurse 07/30/22 Brad Thacker MD #[address] [place] [address] Consulting Physician Neurology 03/21/23 documented as of this encounter
--- OUTSIDE RECORDS SUMMARY | 2025-01-27 18:41 | XMS_ITS | Encounter Summary ---
Author Organization [facility] Address [address] [place] [address] Phone Care Team Providers Care Warrant Server Name Role Phone Duc Gore Primary Care Provider [phone] Rubin Kessler MD Unavailable Keri Arreola APRN, UPHOLSTERY ESTIMATOR Unavailable +- [phone] Brad Thacker MD Unavailable [phone] Reason for Visit * Reason Comments Medication Refill Encounter Details Date Type Department Care Team (Late Contact Info) Description 07/22/2020 Refill [facility] Neu[facility] #1 [place] [address] Brad Thacker MD #2 [place] [address] Medication Refill Social History Tobacco [...] AM CDT Telemedicine [facility] - Neurology - [place] #2 [place] [address] Keri Huynh APRN, UPHOLSTERY ESTIMATOR #[address] [place] [address] 04/06/2025 9:00 AM CDT Procedure Visit [facility] - Neurology - [place] #2 [place] [address] Brad Thacker MD #[address] [place] [address] documented as of this encounter Visit Diagnoses Diagnosis Muscle spasm Spasm of muscle documented in this encounter Care Teams Warrant Server Relationship Specialty Start Date End Date Duc Gore [facility] [address] [place] [address] PCP - General Physician Marketing Underwriter 10/21/16 Rubin Kessler MD [address] [place] [address] Consulting Physician Cardiovascular Disease - Cardiology 05/02/23 Keri Huynh APRN, UPHOLSTERY ESTIMATOR #[address] [place] [address] Nurse Practitioner Advanced Practice Nurse 07/30/22 Brad Thacker MD #[address] [place] [address] Consulting Physician Neurology 03/21/23 documented as of this encounter
[2025-01-27] MEDS: TETANUS,DIPHTHERIA,AC PERTUSSIS ADULT 0.5 ML (ADACEL) IM (18:58)
[2025-01-27] MEDS: NEOMYCIN/POLYMYXIN/BACITRACIN OINTMENT PACKET 1 PACKET TOPICAL (18:59)
[2025-01-27 19:06] VITALS: BP 153/93; PULSE 78; RESP 20; O2SAT 98
== END 2025-01-27 19:06 | disposition home or self-care (01) ==
PROVIDERS: Emergency Provider Emergency Medicine; PCP Physician Assistant
DX: S80.812A Abrasion, left lower leg, initial encounter (principal); Z23 Encounter for immunization; W26.9XXA Contact with unspecified sharp object(s), initial encounter
CPT/HCPCS: 73590; 90471; 90715; 99283

== ENCOUNTER 2025-05-10 18:52 | Emergency (ER) | payer OTHER, SELFPAY ==
[2025-05-10 18:53] VITALS: BP 132/99; PULSE 76; RESP 16; TEMP 36.7; O2SAT 99
--- OUTSIDE RECORDS SUMMARY | 2025-05-10 18:54 | XMS_ITS | Encounter Summary ---
Author Organization [facility] Address [address] [place] [address] Phone Care Team Providers Care Cheese Maker Name Role Phone KaylaDuc [place] Primary Care Provider [phone] Rubin Kessler MD Unavailable Keri Arreola APRN, OPTOMETRY ASSISTANT Unavailable +- [phone] Brad Thacker MD Unavailable [phone] Reason for Visit * Reason Onset Date Comments Prior Authorization 01/11/2025 Encounter Details Date Type Department Care Team (Late st Contact Info) Description 01/11/2025 Telephone [facility] Specialty [address] [place] [address] Keri Huynh, ROLLS BAKER, OPTOMETRY ASSISTANT #[address] [place] [address] Prior Authorization Social History Tobacco Use Types [...] please let me know. Thanks Belén Walker [facility] Specialty documented in this encounter Plan of Treatment Upcoming Encounters Date Type Department Care Team (Late st Contact Info) Description 05/23/2025 2:00 PM CDT Telemedicine [facility] - Neurology - [place] #2 [place] [address] Keri Huynh APRN, OPTOMETRY ASSISTANT #2 [place] [address] 07/22/2025 9:00 AM CDT Procedure Visit [facility] - Neurology - [place] #2 [place] [address] Brad Thacker MD #[address] [place] [address] documented as of this encounter Visit Diagnoses Not on filedocumented in this encounter Care Teams Cheese Maker Relationship Specialty Start Date End Date Duc Gore PAC [address] [place] [address] PCP - General Physician Public Housing Manager 10/21/16 Rubin Kessler MD [address] [place] [address] Consulting Physician Cardiovascular Disease - Cardiology 05/02/23 Keri Huynh APRN, OPTOMETRY ASSISTANT #[address] [place] [address] Nurse Practitioner Advanced Practice Nurse 07/30/22 Brad Thacker MD #[address] [place] [address] Consulting Physician Neurology 03/21/23 documented as of this encounter
--- OUTSIDE RECORDS SUMMARY | 2025-05-10 18:54 | XMS_ITS | Encounter Summary ---
Author Organization [facility] Address [address] [place] [address] Phone Care Team Providers Care Hydroelectric Production Technician Name Role Phone Duc Gore Primary Care Provider Rubin Kessler MD Unavailable Keri Arreola APRN, ADVANCED PRACTICE RN Unavailable +- [phone] Brad Thacker MD Unavailable [phone] Reason for Visit * Reason Comments Medication Refill Encounter Details Date Type Department Care Team (Late st Contact Info) Description 08/24/2021 Refill [facility] - Neurology [facility] #2 [place] [address] Brad Thacker MD #[address] [place] [address] Medication Refill Social History Tobacco [...] - 08/24/2021 9:02 AM CST . . [employer] INS[employer]ANCE documented in this encounter Plan of Treatment Upcoming Encounters Date Type Department Care Team (Late st Contact Info) Description 05/23/2025 2:00 PM CDT Telemedicine [facility] Neurology [facility] #2 [place] [address] Keri Huynh SLEEVE SEWER, ADVANCED PRACTICE RN #2 [place] [address] 07/22/2025 9:00 AM CDT Procedure Visit [facility] #2 [place] [address] Brad Thacker MD #[address] [place] [address] documented as of this encounter Visit Diagnoses Diagnosis Muscle spasm Spasm of muscle documented in this encounter Care Teams Hydroelectric Production Technician Relationship Specialty Start Date End Date Duc Gore PAC [address] [place] [address] PCP - General Physician Diorama Model Maker 10/21/16 Rubin Kessler MD [address] [place] [address] Consulting Physician Cardiovascular Disease - Cardiology 05/02/23 Keri Huynh, SLEEVE SEWER, ADVANCED PRACTICE RN #[address] [place] [address] Nurse Practitioner Advanced Practice Nurse 07/30/22 Brad Thacker MD #[address] [place] [address] Consulting Physician Neurology 03/21/23 documented as of this encounter
--- OUTSIDE RECORDS SUMMARY | 2025-05-10 18:54 | XMS_ITS | Encounter Summary ---
Author Organization [facility] Address [address] [place] [address] Phone Care Team Providers Care Business Integration Manager Name Role Phone Duc Gore Primary Care Provider [phone] Rubin Kessler MD Unavailable Keri Arreola APRN, FACILITY SERVICE ASSOCIATE Unavailable + [phone] Brad Thacker MD Unavailable [phone] Reason for Visit * Reason Comments Medication Refill Encounter Details Date Type Department Care Team (Late st Contact Info) Description 01/27/2022 Refill [facility] - [facility] #2 [place] [address] Brad Thacker MD #2 [place] [address] Medication Refill Social History Tobacco [...] Info) Description 05/23/2025 2:00 PM CDT Telemedicine [facility] - Neurology - [place] #2 [place] [address] Keri Huynh APRN, FACILITY SERVICE ASSOCIATE #[address] [place] [address] 07/22/2025 9:00 AM CDT Procedure Visit [facility] - Neurology - [place] #2 [place] [address] Brad Thacker MD #2 [place] [address] documented as of this encounter Visit Diagnoses Diagnosis Muscle spasm Spasm of muscle documented in this encounter Care Teams Business Integration Manager Relationship Specialty Start Date End Date Duc Gore, [facility] [address] [place] [address] PCP - General Physician Chief Scientific Officer 10/21/16 Rubin Kessler MD [address] [place] [address] Consulting Physician Cardiovascular Disease - Cardiology 05/02/23 Keri Huynh APRN, FACILITY SERVICE ASSOCIATE #[address] [place] [address] Nurse Practitioner Advanced Practice Nurse 07/30/22 Brad Thacker MD #[address] [place] [address] Consulting Physician Neurology 03/21/23 documented as of this encounter
--- OUTSIDE RECORDS SUMMARY | 2025-05-10 18:54 | XMS_ITS | Encounter Summary ---
Author Organization [facility] Address [address] [place] [address] Phone Care Team Providers Care Line Painting Machine Operator Name Role Phone Duc Gore Primary Care Provider [phone] Rubin Kessler MD Unavailable Keri Arreola APRN, GROUNDMAN Unavailable [phone] Brad Thacker MD Unavailable [phone] Reason for Visit * Reason Comments Medication Refill Encounter Details Date Type Department Care Team (Late st Contact Info) Description 03/12/2023 Refill [facility] - Neurology [facility] #2 [place] [address] Keri Huynh, HEALTH OFFICER, GROUNDMAN #2 [place] [address] Medication Refill Social History Tobacco Use Types [...] Info) Description 05/23/2025 2:00 PM CDT [facility] - [facility] - [place] #2 [place] [address] Keri Huynh APRN, GROUNDMAN [address]2 [place] [address] 07/22/2025 9:00 AM CDT Procedure Visit [facility] Neurology - [place] #2 [place] [address] Brad Thacker MD #2 [place] [address] documented as of this encounter Visit Diagnoses Diagnosis Low serum vitamin B12 documented in this encounter Care Teams Line Painting Machine Operator Relationship Specialty Start Date End Date Duc Gore PAC [address] [place] [address] PCP - General Physician Felt Hat Mellowing Machine Operator 10/21/16 Rubin Kessler MD [address] [place] [address] Consulting Physician Cardiovascular Disease - Cardiology 05/02/23 Keri Huynh APRN, GROUNDMAN #2 [place] [address] Nurse Practitioner Advanced Practice Nurse 07/30/22 Brad Thacker MD #2 [place] [address] Consulting Physician Neurology 03/21/23 documented as of this encounter
--- OUTSIDE RECORDS SUMMARY | 2025-05-10 18:54 | XMS_ITS | Encounter Summary ---
Author Organization [facility] Address [address] [place] [address] Phone Care Team Providers Care Pharmacy Care Coordinator Name Role Phone Duc Gore Primary Care Provider [phone] Rubin Kessler MD Unavailable Keri Arreola APRN, BABY NURSE Unavailable +- [phone] Brad Thacker MD Unavailable [phone] Reason for Visit * Reason Comments Medication Refill Encounter Details Date Type Department Care Team (Late st Contact Info) Description 04/01/2022 Refill [facility] - Neurology [facility] #2 [place] [address] Brad Thacker MD #2 [place] [address] Medication Refill Social History Tobacco [...] Dept 07/06/21 Office Visit Keri Huynh APRN, BABY NURSE [facility] Showing recent visits within past 365 days and meeting all other requirements Future Appointments No visits were found meeting these conditions. Showing future appointments within next 90 days and meeting all other requirements documented in this encounter Plan of Treatment Upcoming Encounters Date Type Department Care Team (Late st Contact Info) Description 05/23/2025 2:00 PM CDT Telemedicine [facility] Neurology - [place] #2 [place] [address] Keri Huynh APRN, BABY NURSE #2 [place] [address] 07/22/2025 9:00 AM CDT Procedure Visit [facility] Neurology [facility] #2 [place] [address] Brad Thacker MD [address] [place] [address] documented as of this encounter Visit Diagnoses Diagnosis Muscle spasm Spasm of muscle documented in this encounter Care Teams Pharmacy Care Coordinator Relationship Specialty Start Date End Date Duc Gore, JESSENIA [address] [place] [address] PCP - General Physician Medicare Nurse 10/21/16 Rubin Kessler MD [address] [place] [address] Consulting Physician Cardiovascular Disease - Cardiology 05/02/23 Keri Huynh APRN, BABY NURSE #2 [place] [address] Nurse Practitioner Advanced Practice Nurse 07/30/22 Brad Thacker MD #[address] [place] [address] Consulting Physician Neurology 03/21/23 documented as of this encounter
--- OUTSIDE RECORDS SUMMARY | 2025-05-10 18:54 | XMS_ITS | Encounter Summary ---
Author Organization [facility] Address [address] [place] [address] Phone Care Team Providers Care Tack Cutter Name Role Phone Duc Gore Primary Care Provider [phone] Rubin Kessler MD Unavailable Keri Arreola APRN, STATISTICS TUTOR Unavailable [phone] Brad Thacker MD Unavailable [phone] Reason for Visit * Reason Comments Medication Refill Encounter Details Date Type Department Care Team (Late st Contact Info) Description 05/27/2023 Refill [facility] - Neurology [facility] #2 [place] [address] Keri Huynh, INFORMATION SECURITY SYSTEMS INSTRUCTOR, STATISTICS TUTOR [address]2 [place] [address] Medication Refill Social History Tobacco Use Types [...] Dept 03/21/23 Procedure Visit Brad Thacker MD [facility] Neurology [facility] 01/28/23 Office Visit Keri Huynh APRN, BRAD [facility] Neurology [facility] 07/30/22 Office Visit Keri Huynh APRN, BRAD [facility] Neurology [facility] Showing recent visits within past 365 days and meeting all other requirements Future Appointments Date Type Provider Dept 06/05/23 Appointment Keri Huynh APRN, CNS [facility] 06/13/23 Appointment Brad Thacker MD [facility] Neurology [facility] Showing future appointments within next 90 days and meeting all other requirements documented in this encounter Plan of Treatment Upcoming Encounters Date Type Department Care Team (Late st Contact Info) Description 05/23/2025 2:00 PM CDT Telemedicine [facility] - Neurology - [place] [address] [place] [address] Keri Huynh APRN, STATISTICS TUTOR [address] [place] [address] 07/22/2025 9:00 AM CDT Procedure Visit [facility] - Neurology - [place] [address] [place] [address] Brad Thacker MD [address] [place] [address] documented as of this encounter Visit Diagnoses Diagnosis Chronic migraine without aura, with intractable migraine, so stated, with status migrainosus documented in this encounter Care Teams Tack Cutter Relationship Specialty Start Date End Date Duc Gore PAC [address] [place] [address] PCP - General Physician Counter Tender 10/21/16 Rubin Kessler MD [address] [place] [address] Consulting Physician Cardiovascular Disease - Cardiology 05/02/23 Keri Huynh, INFORMATION SECURITY SYSTEMS INSTRUCTOR, STATISTICS TUTOR [address] [place] [address] Nurse Practitioner Advanced Practice Nurse 07/30/22 Brad Thacker MD [address] [place] [address] Consulting Physician Neurology 03/21/23 documented as of this encounter
--- OUTSIDE RECORDS SUMMARY | 2025-05-10 18:54 | XMS_ITS | Encounter Summary ---
Author Organization [facility] Address [address] [place] [address] Phone Care Team Providers Care Financial Operations Clerk Name Role Phone Duc Gore Primary Care Provider [phone] Rubin Kessler MD Unavailable Keri Arreola APRN, SACK FILLER Unavailable [phone] Brad Thacker MD Unavailable Reason for Visit * Reason Comments Medication Refill Encounter Details Date Type Department Care Team (Late st Contact Info) Description 10/06/2023 Refill [facility] - Neurology [facility] #2 [place] [address] Keri Huynh, AUTOMOBILE BODY WORKER, SACK FILLER [address] [place] [address] Medication Refill Social History Tobacco Use Types [...] Dept 09/12/23 Procedure Visit Brad Thacker MD [facility] Neurology [facility] 06/13/23 Procedure Visit Brad Thacker, [facility] 06/05/23 Office Visit Keri Huynh APRN, CNS [facility] 03/21/23 Procedure Visit Brad Thacker MD [facility] Neurology [facility] 01/28/23 Office Visit Keri Huynh APRN, BRAD [facility] Showing recent visits within past 365 days and meeting all other requirements Future Appointments Date Type Provider Dept 10/30/23 Appointment Keri Huynh APRN, CNS [facility] 12/12/23 Appointment Brad Thacker MD [facility] Showing future appointments within next 90 days and meeting all other requirements MAINTENANCE TECHNICIAN documented in this encounter Plan of Treatment Upcoming Encounters Date Type Department Care Team (Late st Contact Info) Description 05/23/2025 2:00 PM CDT Telemedicine [facility] - Neurology - [place] #[address] [place] [address] Keri Huynh APRN, SACK FILLER [address] [place] [address] 07/22/2025 9:00 AM CDT Procedure Visit [facility] - Neurology - [place] #2 [place] [address] Brad Thacker MD [address] [place] [address] documented as of this encounter Visit Diagnoses Diagnosis Muscle spasm Spasm of muscle documented in this encounter Care Teams Financial Operations Clerk Relationship Specialty Start Date End Date Duc Gore, PAC [address] [place] [address] PCP - General Physician Fountain Supervisor 10/21/16 Rubin Kessler MD [address] [place] [address] Consulting Physician Cardiovascular Disease - Cardiology 05/02/23 Keri Huynh APRN, SACK FILLER [address] [place] [address] Nurse Practitioner Advanced Practice Nurse 07/30/22 Brad Thacker MD [address] [place] [address] Consulting Physician Neurology 03/21/23 documented as of this encounter
--- OUTSIDE RECORDS SUMMARY | 2025-05-10 18:54 | XMS_ITS | Encounter Summary ---
Author Organization [facility] Address [address] [place] [address] Phone Care Team Providers Care Coding Educator Name Role Phone Duc Gore Primary Care Provider [phone] Rubin Kessler MD Unavailable Keri Arreola APRN, TAIL RIPPER Unavailable + [phone] Brad Thacker MD Unavailable [phone] Reason for Visit * Reason Comments Medication Refill Encounter Details Date Type Department Care Team (Late st Contact Info) Description 11/21/2021 Refill [facility] - [facility] #2 [place] [address] Brad Thacker MD [address] [place] [address] Medication Refill Social History [...] Info) Description 05/23/2025 2:00 PM CDT Telemedicine [facility] - Neurology - [place] #[address] [place] [address] Keri Huynh APRN, TAIL RIPPER [address] [place] [address] 07/22/2025 9:00 AM CDT Procedure Visit [facility] - Neurology - [place] [address] [place] [address] Brad Thacker MD [address] [place] [address] documented as of this encounter Visit Diagnoses Diagnosis Muscle spasm Spasm of muscle documented in this encounter Care Teams Coding Educator Relationship Specialty Start Date End Date Duc Gore, [facility] [address] [place] [address] PCP - General Physician Precision Thread Grinder Operator 10/21/16 Rubin Kessler MD [address] [place] [address] Consulting Physician Cardiovascular Disease - Cardiology 05/02/23 Keri Huynh APRN, TAIL RIPPER [address] [place] [address] Nurse Practitioner Advanced Practice Nurse 07/30/22 Brad Thacker MD #[address] [place] [address] Consulting Physician Neurology 03/21/23 documented as of this encounter
--- OUTSIDE RECORDS SUMMARY | 2025-05-10 18:54 | XMS_ITS | Encounter Summary ---
Author Organization [facility] Address [address] [place] [address] Phone Care Team Providers Care Systems Checkout Mechanic Name Role Phone Duc Gore Primary Care Provider [phone] Rubin Kessler MD Unavailable Keri Arreola APRN, VALUE STREAM MANAGER Unavailable [phone]- [phone] Brad Thacker MD Unavailable [phone] Reason for Visit * Reason Comments Medication Refill Encounter Details Date Type Department Care Team (Late Contact Info) Description 05/20/2020 Refill [facility] #1 [place] [address] Brad Thacker MD #[address] [place] [address] Medication Refill Social History Tobacco [...] Info) Description 05/23/2025 2:00 PM CDT Telemedicine [facility] - Neurology - [place] #2 [place] [address] Keri Huynh APRN, VALUE STREAM MANAGER [address] [place] [address] 07/22/2025 9:00 AM CDT Procedure Visit [facility] - Neurology - [place] #[address] [place] [address] Brad Thacker MD [address] [place] [address] documented as of this encounter Visit Diagnoses Not on filedocumented in this encounter Care Teams Systems Checkout Mechanic Relationship Specialty Start Date End Date Duc Gore, [facility] [address] [place] [address] PCP - General Physician Marketing Underwriter 10/21/16 Rubin Kessler MD [address] [place] [address] Consulting Physician Cardiovascular Disease - Cardiology 05/02/23 Keri Huynh APRN, VALUE STREAM MANAGER [address] [place] [address] Nurse Practitioner Advanced Practice Nurse 07/30/22 Brad Thacker MD #[address] [place] [address] Consulting Physician Neurology 03/21/23 documented as of this encounter
--- OUTSIDE RECORDS SUMMARY | 2025-05-10 18:54 | XMS_ITS | Encounter Summary ---
Author Organization [facility] Address [address] [place] [address] Phone Care Team Providers Care Salesperson Florist Supplies Name Role Phone Duc Gore Primary Care Provider [phone] Rubin Kessler MD Unavailable Keri Arreola APRN, PRINT SHOP ASSISTANT Unavailable +- [phone] Brad Thacker MD Unavailable [phone] Reason for Visit * Reason Comments Medication Refill Encounter Details Date Type Department Care Team (Late Contact Info) Description 07/22/2020 Refill [facility] #[address] [place] [address] Brad Thacker MD #[address] [place] [address] Medication Refill Social History [...] Info) Description 05/23/2025 2:00 PM CDT Telemedicine [facility] - Neurology - [place] #[address] [place] [address] Keri Huynh APRN, PRINT SHOP ASSISTANT [address] [place] [address] 07/22/2025 9:00 AM CDT Procedure Visit [facility] - Neurology - [place] [address] [place] [address] Brad Thacker MD #[address] [place] [address] documented as of this encounter Visit Diagnoses Diagnosis Muscle spasm Spasm of muscle documented in this encounter Care Teams Salesperson Florist Supplies Relationship Specialty Start Date End Date Duc Gore [facility] [address] [place] [address] PCP - General Physician Pan Devulcanizer Helper 10/21/16 Rubin Kessler MD [address] [place] [address] Consulting Physician Cardiovascular Disease - Cardiology 05/02/23 Keri Huynh APRN, PRINT SHOP ASSISTANT #[address] [place] [address] Nurse Practitioner Advanced Practice Nurse 07/30/22 Brad Thacker MD #[address] [place] [address] Consulting Physician Neurology 03/21/23 documented as of this encounter
--- OUTSIDE RECORDS SUMMARY | 2025-05-10 18:54 | XMS_ITS | Encounter Summary ---
Author Organization [facility] Address [address] [place] [address] Phone Care Team Providers Care Occupational Therapy Aide Name Role Phone Duc Gore Primary Care Provider [phone] Rubin Kessler MD Unavailable Keri Arreola APRN, MULTICUT LINE OPERATOR Unavailable [phone]- [phone] Brad Thacker MD Unavailable [phone] Reason for Visit * Reason Comments Medication Refill Encounter Details Date Type Department Care Team (Late st Contact Info) Description 08/08/2022 Refill [facility] - Neurology [facility] #2 [place] [address] Brad Thacker MD #2 [place] [address] Medication Refill Social History Tobacco [...] Info) Description 05/23/2025 2:00 PM CDT Telemedicine [facility] - Neurology - [place] #2 [place] [address] Keri Huynh APRN, MULTICUT LINE OPERATOR #[address] [place] [address] 07/22/2025 9:00 AM CDT Procedure Visit [facility] Neurology - [place] #2 [place] [address] Brad Thacker MD #[address] [place] [address] documented as of this encounter Visit Diagnoses Diagnosis Muscle spasm Spasm of muscle documented in this encounter Care Teams Occupational Therapy Aide Relationship Specialty Start Date End Date Duc Gore PAC [address] [place] [address] PCP - General Physician Preparation Operator 10/21/16 Rubin Kessler MD [address] [place] [address] Consulting Physician Cardiovascular Disease - Cardiology 05/02/23 Keri Huynh FIRE EXTINGUISHER SPRINKLER INSPECTOR, MULTICUT LINE OPERATOR #[address] [place] [address] Nurse Practitioner Advanced Practice Nurse 07/30/22 Brad Thacker MD #[address] [place] [address] Consulting Physician Neurology 03/21/23 documented as of this encounter
--- OUTSIDE RECORDS SUMMARY | 2025-05-10 18:54 | XMS_ITS | Encounter Summary ---
Author Organization [facility] Address [address] [place] [address] Phone Care Team Providers Care Employee Training Specialist Name Role Phone Duc Gore Primary Care Provider [phone] Rubin Kessler MD Unavailable Keri Arreola APRN, HAT FORMING MACHINE OPERATOR Unavailable + [phone] Brad Thacker MD Unavailable [phone] Reason for Visit * Reason Comments Medication Refill Encounter Details Date Type Department Care Team (Late st Contact Info) Description 12/09/2022 Refill [facility] - Neurology [facility] #2 [place] [address] Brad Thacker MD #[address] [place] [address] Medication Refill Social History Tobacco [...] Dept 07/30/22 Office Visit Keri Huynh APRN, HAT FORMING MACHINE OPERATOR [facility] Neurology [place] [facility] Showing recent visits within past 365 days and meeting all other requirements Future Appointments Date Type Provider Dept 01/28/23 Appointment Keri Huynh APRN, HAT FORMING MACHINE OPERATOR [facility] Neurology [place] Showing future appointments within next 90 days and meeting all other requirements GROWER documented in this encounter Plan of Treatment Upcoming Encounters Date Type Department Care Team (Late st Contact Info) Description 05/23/2025 2:00 PM CDT Telemedicine [facility] Neurology - [place] #[address] [place] [address] Keri Huynh APRN, HAT FORMING MACHINE OPERATOR #[address] [place] [address] 07/22/2025 9:00 AM CDT Procedure Visit [facility] Neurology [facility] #[address] [place] [address] Brad Thacker MD #[address] [place] [address] documented as of this encounter Visit Diagnoses Diagnosis Muscle spasm Spasm of muscle documented in this encounter Care Teams Employee Training Specialist Relationship Specialty Start Date End Date Duc Gore, PAC [address] [place] [address] PCP - General Physician Flight Test Mechanic 10/21/16 Rubin Kessler MD [address] [place] [address] Consulting Physician Cardiovascular Disease - Cardiology 05/02/23 Keri Huynh, LOGGING SUPERINTENDENT, HAT FORMING MACHINE OPERATOR #[address] [place] [address] Nurse Practitioner Advanced Practice Nurse 07/30/22 Brad Thacker MD #[address] [place] [address] Consulting Physician Neurology 03/21/23 documented as of this encounter
--- OUTSIDE RECORDS SUMMARY | 2025-05-10 18:54 | XMS_ITS | Encounter Summary ---
Author Organization [facility] Address [address] [place] [address] Phone Care Team Providers Care Filling Machine Operator Name Role Phone Dcu Gore Primary Care Provider [phone] Rubin Kessler MD Unavailable Keri Arreola APRN, FINANCE MANAGER Unavailable +- [phone] Brad Thacker MD Unavailable [phone] Reason for Visit * Reason Comments Medication Refill Encounter Details Date Type Department Care Team (Late st Contact Info) Description 02/19/2021 Refill [facility]1 [place] [address] Brad Thacker MD #2 [place] [address] Medication Refill Social History Tobacco [...] 2:00 PM CDT Telemedicine [facility] - Neurology - [place] #2 [place] [address] Keri Huynh APRN, FINANCE MANAGER #[address] [place] [address] 07/22/2025 9:00 AM CDT Procedure Visit [facility] - Neurology - [place] #2 [place] [address] Brad Thacker MD #[address] [place] [address] documented as of this encounter Visit Diagnoses Diagnosis Muscle spasm Spasm of muscle documented in this encounter Care Teams Filling Machine Operator Relationship Specialty Start Date End Date Duc Gore [facility] [address] [place] [address] PCP - General Physician Patient Registration Rep 10/21/16 Rubin Kessler MD [address] [place] [address] Consulting Physician Cardiovascular Disease - Cardiology 05/02/23 Keri Huynh APRN, FINANCE MANAGER #[address] [place] [address] Nurse Practitioner Advanced Practice Nurse 07/30/22 Brad Thacker MD #[address] [place] [address] Consulting Physician Neurology 03/21/23 documented as of this encounter
--- OUTSIDE RECORDS SUMMARY | 2025-05-10 18:54 | XMS_ITS | Encounter Summary ---
Author Organization [facility] Address [address] [place] [address] Phone Care Team Providers Care Doll Wig Hackler Name Role Phone Duc Gore Primary Care Provider [phone] Rubin Kessler MD Unavailable Keri Arreola APRN, LOGISTICS PROJECT MANAGER Unavailable + [phone] Brad Thacker MD Unavailable [phone] Reason for Visit * Reason Comments Medication Refill Encounter Details Date Type Department Care Team (Late st Contact Info) Description 10/22/2021 Refill [facility] - [place] [facility] #2 [place] [address] Brad Thacker MD #[address] [place] [address] Medication Refill Social History Tobacco [...] Info) Description 05/23/2025 2:00 PM CDT Telemedicine [facility] - Neurology - [place] #2 [place] [address] Keri Huynh APRN, LOGISTICS PROJECT MANAGER #[address] [place] [address] 07/22/2025 9:00 AM CDT Procedure Visit [facility] - Neurology - [place] #2 [place] [address] Brad Thacker MD #[address] [place] [address] documented as of this encounter Visit Diagnoses Diagnosis Muscle spasm Spasm of muscle documented in this encounter Care Teams Doll Wig Hackler Relationship Specialty Start Date End Date Duc Gore, [facility] [address] [place] [address] PCP - General Physician Climbing Guide 10/21/16 Rubin Kessler MD [address] [place] [address] Consulting Physician Cardiovascular Disease - Cardiology 05/02/23 Keri Huynh APRN, LOGISTICS PROJECT MANAGER #[address] [place] [address] Nurse Practitioner Advanced Practice Nurse 07/30/22 Brad Thacker MD #[address] [place] [address] Consulting Physician Neurology 03/21/23 documented as of this encounter
--- OUTSIDE RECORDS SUMMARY | 2025-05-10 18:54 | XMS_ITS | Encounter Summary ---
Author Organization [facility] Address [address] [place] [address] Phone Care Team Providers Care Programmer Analyst Consultant Name Role Phone Duc Gore Primary Care Provider [phone] Rubin Kessler MD Unavailable Keri Arreola APRN, RESIDENTIAL MORTGAGE UNDERWRITER Unavailable [phone]- [phone] Brad Thacker MD Unavailable [phone] Reason for Visit * Reason Comments Medication Refill Encounter Details Date Type Department Care Team (Late Contact Info) Description 09/20/2020 Refill [facility] - Neurology [facility] #1 [place] [address] Brad Thacker MD #2 [place] [address] Medication Refill Social History Tobacco [...] Info) Description 05/23/2025 2:00 PM CDT Telemedicine [facility] - Neurology - [place] #2 [place] [address] Keri Huynh APRN, RESIDENTIAL MORTGAGE UNDERWRITER #2 [place] [address] 07/22/2025 9:00 AM CDT Procedure Visit [facility] - Neurology - [place] #2 [place] [address] Brad Thacker MD #2 [place] [address] documented as of this encounter Visit Diagnoses Diagnosis Muscle spasm Spasm of muscle documented in this encounter Care Teams Programmer Analyst Consultant Relationship Specialty Start Date End Date Duc Gore [facility] [address] [place] [address] PCP - General Physician Business Development Consultant 10/21/16 Rubin Kessler MD [address] [place] [address] Consulting Physician Cardiovascular Disease - Cardiology 05/02/23 Keri Huynh APRN, RESIDENTIAL MORTGAGE UNDERWRITER #2 [place] [address] Nurse Practitioner Advanced Practice Nurse 07/30/22 Brad Thacker MD #2 [place] [address] Consulting Physician Neurology 03/21/23 documented as of this encounter
--- OUTSIDE RECORDS SUMMARY | 2025-05-10 18:54 | XMS_ITS | Encounter Summary ---
Author Organization [facility] Address [address] [place] [address] Phone Care Team Providers Care Repairer Art Objects Name Role Phone Duc Gore Primary Care Provider [phone] Rubin Kessler MD Unavailable Keri Arreola APRN, TUBE ROOM SUPERVISOR Unavailable + [phone] Brad Thacker MD Unavailable [phone] Reason for Visit * Reason Comments Medication Refill Encounter Details Date Type Department Care Team (Late Contact Info) Description 06/21/2021 Refill [facility] #2 [place] [address] Brad Thacker MD #[address] [place] [address] Medication Refill Social History Tobacco [...] Info) Description 05/23/2025 2:00 PM CDT Telemedicine [facility] - Neurology - [place] #2 [place] [address] Keri Huynh APRN, TUBE ROOM SUPERVISOR [address] [place] [address] 07/22/2025 9:00 AM CDT Procedure Visit [facility] - Neurology - [place] [address] [place] [address] Brad Thacker MD [address] [place] [address] documented as of this encounter Visit Diagnoses Diagnosis Muscle spasm Spasm of muscle documented in this encounter Care Teams Repairer Art Objects Relationship Specialty Start Date End Date Duc Gore [facility] [address] [place] [address] PCP - General Physician Rip Machine Operator 10/21/16 Rubin Kessler MD [address] [place] [address] Consulting Physician Cardiovascular Disease - Cardiology 05/02/23 Keri Huynh APRN, TUBE ROOM SUPERVISOR [address] [place] [address] Nurse Practitioner Advanced Practice Nurse 07/30/22 Brad Thacker MD [address] [place] [address] Consulting Physician Neurology 03/21/23 documented as of this encounter
--- OUTSIDE RECORDS SUMMARY | 2025-05-10 18:54 | XMS_ITS | Encounter Summary ---
Author Organization [facility] Address [address] [place] [address] Phone Care Team Providers Care Staple Side Laster Name Role Phone Duc Gore Primary Care Provider [phone] Rubin Kessler MD Unavailable Keri Arreola APRN, AMMUNITION OFFICER Unavailable + [phone] Brad Thacker MD Unavailable [phone] Reason for Visit * Reason Comments Medication Refill Encounter Details Date Type Department Care Team (Late st Contact Info) Description 07/06/2022 Refill [facility] #2 [place] [address] Brad Thacker MD #2 [place] [address] Medication Refill Social History Tobacco [...] [facility] - Neurology - [place] #2 [place] [address] Keri Huynh APRN, AMMUNITION OFFICER [address]2 [place] [address] 07/22/2025 9:00 AM CDT Procedure Visit [facility] - Neurology - [place] #2 [place] [address] Brad Thacker MD #2 [place] [address] documented as of this encounter Visit Diagnoses Diagnosis Muscle spasm Spasm of muscle documented in this encounter Care Teams Staple Side Laster Relationship Specialty Start Date End Date Duc Gore, [facility] [address] [place] [address] PCP - General Physician Sports Cartoonist 10/21/16 Rubin Kessler MD [address] [place] [address] Consulting Physician Cardiovascular Disease - Cardiology 05/02/23 Keri Huynh APRN, AMMUNITION OFFICER [address] [place] [address] Nurse Practitioner Advanced Practice Nurse 07/30/22 Brad Thacker MD #[address] [place] [address] Consulting Physician Neurology 03/21/23 documented as of this encounter
--- OUTSIDE RECORDS SUMMARY | 2025-05-10 18:54 | XMS_ITS | Encounter Summary ---
Author Organization [facility] Address [address] [place] [address] Phone Care Team Providers Care Template Clerk Name Role Phone Duc Gore Primary Care Provider Rubin Kessler MD Unavailable Keri Arreola APRN, WET FINISHER Unavailable [phone] Brad Thacker MD Unavailable Encounter Details Date Type Department Care Team (Late st Contact Info) Description 05/10/2025 Telephone [facility] - Neurology - [place] [address] [place] [address] Keri Huynh, PIANO AND ORGAN REFINISHER, WET FINISHER [address]2 [place] [address] Social History Tobacco Use Types Packs/Day Years [...] as of this encounter Miscellaneous Notes * Addendum Note - Jazzmine Phipps RN - 05/10/2025 9:19 AM CDTAddended by: JAZZMINE PHIPPS on: 05/10/2025 09:19 AM Modules accepted: Orders * Telephone Encounter - Jazzmine Phipps RN - 05/10/2025 9:16 AM CDT Per verbal with Keri patient will need to complete labs. Patient was advised to increase hydration and that office would call once labs are received. * Telephone Encounter - Jazzmine Phipps RN - 05/10/2025 8:31 AM CDT Patient left message requesting toradol injection. documented in this encounter Plan of Treatment Upcoming Encounters Date Type Department Care Team (Late st Contact Info) Description 05/23/2025 2:00 PM CDT Telemedicine [facility] Neurology [facility] #2 [place] [address] Keri Huynh APRN, WET FINISHER [address] [place] [address] 07/22/2025 9:00 AM CDT Procedure Visit [facility] Neurology [facility] #2 [place] [address] Brad Thacker MD #[address] [place] [address] Scheduled Orders Name Type Priority Associated Diagnoses Orde r Schedule BASIC METABOLIC PANEL W/ CALCIUM TOTAL Lab STAT Chronic migraine without aura, with intractable migraine, so stated, with status migrainosus Expected: 05/10/2025, Expires: 09/09/2025 documented as of this encounter Visit Diagnoses Diagnosis Chronic migraine without aura, with intractable migraine, so stated, with status migrainosus- Primary documented in this encounter Care Teams Template Clerk Relationship Specialty Start Date End Date Duc Gore PAC [address] [place] [address] PCP - General Physician Distribution Tech 10/21/16 Rubin Kessler MD [address] [place] [address] Consulting Physician Cardiovascular Disease - Cardiology 05/02/23 Keri Huynh APRN, WET FINISHER [address] [place] [address] Nurse Practitioner Advanced Practice Nurse 07/30/22 Brad Thacker MD #[address] [place] [address] Consulting Physician Neurology 03/21/23 documented as of this encounter
--- OUTSIDE RECORDS SUMMARY | 2025-05-10 18:54 | XMS_ITS | Encounter Summary ---
Author Organization [facility] Address [address] [place] [address] Phone Care Team Providers Care Fan Installer Name Role Phone Duc Gore Primary Care Provider [phone] Rubin Kessler MD Unavailable Keri Arreola APRN, LABORER POULTRY HATCHERY Unavailable [phone] Brad Thacker MD Unavailable [phone] Reason for Visit * Reason Comments Medication Refill Encounter Details Date Type Department Care Team (Late st Contact Info) Description 03/11/2023 Refill [facility] - Neurology [facility] #2 [place] [address] Keri Huynh, DECORATING MACHINE TENDER, LABORER POULTRY HATCHERY #2 [place] [address] Medication Refill Social History Tobacco Use Types [...] 01/28/23 Office Visit Keri Huynh APRN, BRAD [facility] [place] 07/30/22 Office Visit Keri Huynh APRN, LABORER POULTRY HATCHERY [facility] Showing recent visits within past 365 days and meeting all other requirements Future Appointments Date Type Provider Dept 03/21/23 Appointment Brad Thacker MD [facility] 04/29/23 Appointment Keri Huynh APRN, CNS [facility] Showing future appointments within next 90 days and meeting all other requirements documented in this encounter Plan of Treatment Upcoming Encounters Date Type Department Care Team (Late st Contact Info) Description 05/23/2025 2:00 PM CDT Telemedicine [facility] - Neurology - [place] #2 [place] [address] Keri Huynh APRN, LABORER POULTRY HATCHERY #[address] [place] [address] 07/22/2025 9:00 AM CDT Procedure Visit [facility] - Neurology - [place] [address] [place] [address] Brad Thacker MD #2 [place] [address] documented as of this encounter Visit Diagnoses Diagnosis Chronic migraine without aura, with intractable migraine, so stated, with status migrainosus documented in this encounter Care Teams Fan Installer Relationship Specialty Start Date End Date Duc Gore [facility] [address] [place] [address] PCP - General Physician Staff Psychologist 10/21/16 Rubin Kessler MD [address] [place] [address] Consulting Physician Cardiovascular Disease - Cardiology 05/02/23 Keri Huynh APRN, LABORER POULTRY HATCHERY [address] [place] [address] Nurse Practitioner Advanced Practice Nurse 07/30/22 Brad Thacker MD #[address] [place] [address] Consulting Physician Neurology 03/21/23 documented as of this encounter
--- OUTSIDE RECORDS SUMMARY | 2025-05-10 18:54 | XMS_ITS | Encounter Summary ---
Author Organization [facility] Address [address] [place] [address] Phone Care Team Providers Care Scratcher Name Role Phone Duc Gore Primary Care Provider [phone] Rubin Kessler MD Unavailable Keri Arreola APRN, SLASHER SAWYER Unavailable [phone]- [phone] Brad Thacker MD Unavailable [phone] Reason for Visit * Reason Comments Medication Refill Encounter Details Date Type Department Care Team (Late st Contact Info) Description 09/16/2022 Refill [facility] #2 [place] [address] Brad Thacker MD #[address] [place] [address] Medication Refill Social History Tobacco [...] Info) Description 05/23/2025 2:00 PM CDT Telemedicine [facility] - Neurology - [place] #2 [place] [address] Keri Huynh APRN, SLASHER SAWYER #[address] [place] [address] 07/22/2025 9:00 AM CDT Procedure Visit [facility] - Neurology - [place] #2 [place] [address] Brad Thacker MD #[address] [place] [address] documented as of this encounter Visit Diagnoses Diagnosis Muscle spasm Spasm of muscle documented in this encounter Care Teams Scratcher Relationship Specialty Start Date End Date Duc Gore, [facility] [address] [place] [address] PCP - General Physician Tube Skiver 10/21/16 Rubin Kessler MD [address] [place] [address] Consulting Physician Cardiovascular Disease - Cardiology 05/02/23 Keri Huynh APRN, SLASHER SAWYER [address] [place] [address] Nurse Practitioner Advanced Practice Nurse 07/30/22 Brad Tahcker MD #[address] [place] [address] Consulting Physician Neurology 03/21/23 documented as of this encounter
--- OUTSIDE RECORDS SUMMARY | 2025-05-10 18:54 | XMS_ITS | Encounter Summary ---
Author Organization [facility] Address [address] [place] [address] Phone Care Team Providers Care Typing Teacher Name Role Phone Duc Gore Primary Care Provider [phone] Rubin Kessler MD Unavailable Keri Arreola APRN, FARM OR RANCH ANIMAL CARETAKER Unavailable + [phone] Brad Thacker MD Unavailable [phone] Reason for Visit * Reason Comments Medication Refill Encounter Details Date Type Department Care Team (Late st Contact Info) Description 02/26/2022 Refill [facility] - [facility] #2 [place] [address] Brad Thacker MD #2 [place] [address] Medication Refill Social History Tobacco [...] Info) Description 05/23/2025 2:00 PM CDT Telemedicine [facility] - Neurology - [place] #2 [place] [address] Keri Huynh APRN, FARM OR RANCH ANIMAL CARETAKER #2 [place] [address] 07/22/2025 9:00 AM CDT Procedure Visit [facility] - Neurology - [place] #2 [place] [address] Brad Thacker MD #2 [place] [address] documented as of this encounter Visit Diagnoses Diagnosis Muscle spasm Spasm of muscle documented in this encounter Care Teams Typing Teacher Relationship Specialty Start Date End Date Duc Gore, [facility] [address] [place] [address] PCP - General Physician Housekeeping And Laundry Team Leader 10/21/16 Rubin Kessler MD [address] [place] [address] Consulting Physician Cardiovascular Disease - Cardiology 05/02/23 Keri Huynh APRN, FARM OR RANCH ANIMAL CARETAKER #2 [place] [address] Nurse Practitioner Advanced Practice Nurse 07/30/22 Brad Thacker MD #2 [place] [address] Consulting Physician Neurology 03/21/23 documented as of this encounter
--- OUTSIDE RECORDS SUMMARY | 2025-05-10 18:54 | XMS_ITS | Encounter Summary ---
Author Organization [facility] Address [address] [place] [address] Phone Care Team Providers Care E Business Manager Name Role Phone Duc Gore Primary Care Provider [phone] Rubin Kessler MD Unavailable Keri Arreola APRN, OFFC SPEC Unavailable + [phone] Brad Thacker MD Unavailable [phone] Reason for Visit * Reason Comments Medication Refill Encounter Details Date Type Department Care Team (Late st Contact Info) Description 12/19/2021 Refill [facility] #2 [place] [address] Brad Thacker MD #2 [place] [address] Medication Refill Social History Tobacco [...] Info) Description 05/23/2025 2:00 PM CDT Telemedicine [facility] - Neurology - [place] #2 [place] [address] Keri Huynh APRN, OFFC SPEC #2 [place] [address] 07/22/2025 9:00 AM CDT Procedure Visit [facility] - Neurology - [place] #2 [place] [address] Brad Thacker MD #[address] [place] [address] documented as of this encounter Visit Diagnoses Diagnosis Muscle spasm Spasm of muscle documented in this encounter Care Teams E Business Manager Relationship Specialty Start Date End Date Duc Gore, [facility] [address] [place] [address] PCP - General Physician Healthcare Business Analyst 10/21/16 Rubin Kesselr MD [address] [place] [address] Consulting Physician Cardiovascular Disease - Cardiology 05/02/23 Keri Huynh APRN, OFFC SPEC #2 [place] [address] Nurse Practitioner Advanced Practice Nurse 07/30/22 Brad Thacker MD #2 [place] [address] Consulting Physician Neurology 03/21/23 documented as of this encounter
--- OUTSIDE RECORDS SUMMARY | 2025-05-10 18:54 | XMS_ITS | Encounter Summary ---
Author Organization [facility] Address [address] [place] [address] Phone Care Team Providers Care Flight Test Engineer Name Role Phone Duc Gore Primary Care Provider [phone] Rubin Kessler MD Unavailable Keri Arreola APRN, MANAGER COMPENSATION Unavailable +- [phone] Brad Thacker MD Unavailable [phone] Reason for Visit * Reason Comments Medication Refill Encounter Details Date Type Department Care Team (Late st Contact Info) Description 12/24/2020 Refill [facility] - Neurology [facility] #1 [place] [address] Brad Thacker MD #2 [place] [address] Medication Refill Social History Tobacco [...] Info) Description 05/23/2025 2:00 PM CDT Telemedicine [facility] - Neurology - [place] #2 [place] [address] Keri Huynh APRN, MANAGER COMPENSATION #2 [place] [address] 07/22/2025 9:00 AM CDT Procedure Visit [facility] - Neurology - [place] #2 [place] [address] Brad Thacker MD #2 [place] [address] documented as of this encounter Visit Diagnoses Diagnosis Muscle spasm Spasm of muscle documented in this encounter Care Teams Flight Test Engineer Relationship Specialty Start Date End Date Duc Gore [facility] [address] [place] [address] PCP - General Physician Fall Intern 10/21/16 Rubin Kessler MD [address] [place] [address] Consulting Physician Cardiovascular Disease - Cardiology 05/02/23 Keri Huynh APRN, MANAGER COMPENSATION #2 [place] [address] Nurse Practitioner Advanced Practice Nurse 07/30/22 Brad Thacker MD #2 [place] [address] Consulting Physician Neurology 03/21/23 documented as of this encounter
--- OUTSIDE RECORDS SUMMARY | 2025-05-10 18:54 | XMS_ITS | Clinical Summary ---
Author Organization [facility] Address #[address] [place] [address] Phone Care Team Providers Care Mental Hygiene Consultant Name Role Phone Duc Gore Primary Care Provider [phone] Rubin Kessler MD Unavailable Unavai Keri Yadav APRN, RADIO DISC JOCKEY Unavailable [phone]- [phone] Brad Thacker MD Unavailable [phone] Allergies Active Allergy Reactions Criticality Noted Date [...] DAY 180 Tablet 1 03/11/20 23 Active methylPREDNISol one (MEDROL DOSPACK) 4 MG Tablet Therapy Pack Use as per instructions on package. 21 Tablet 11/25/19 24 Active Erenumab-aooe (Aimovig) 140 MG/ML Solution Auto-injectorIn dications:Chron ic migraine without aura, with intractable migraine, so stated, with status migrainosus INJECT 1ML SUBCUTANEOUSLY EVERY 30 DAYS 1 mL 3 06/29/20 24 Active Ubrelvy 50 MG TabletIndicatio ns:Chronic migraine without aura, with intractable migraine, so stated, with status migrainosus TAKE 1 TABLET BY MOUTH ONCE NEEDED FOR OTHER (MIGRAINE) FOR UP TO 1 DOSE. 10 Tablet 4 01/29/20 Active cyclobenzaprine (FLEXERIL) 10 MG TabletIndicatio ns:Muscle spasm TAKE 1 TABLET BY MOUTH EVERY DAY AT NIGHT 30 Tablet 3 02/16/20 Active botulinum Toxin Type A (Botox) 200 units Recon SolnIndications :Chronic migraine without aura, with intractable migraine, so stated, with status migrainosus Inject 155 units IM every 12 weeks 1 Each 3 03/15/20 Active Hospital, Clinic, or Other Facility Administered Medication Ordered Dose Route Frequency Start Date End Date Status botulinum Toxin Type A (BOTOX) injection 200 UnitsIndications:Chronic migraine without aura, with intractable migraine, so stated, with status migrainosus 200 Units IJ ONCE 04/22/2025 04/22/2025 Ended Active Problems Problem Noted Date Diagnosed Date Chronic migraine without aur a, with intractable migraine, so stated, with status migrainosus 04/28/2019 Migraine 03/27/2018 Encounters Date Type Department Care Team Description 05/10/2025 Telephone [facility] [place] [address] [place] [address] Keri Huynh APRN, RADIO DISC JOCKEY 04/22/2025 9:45 AM CDT [facility] [place] [facility] [facility] [address] Brad Thacker MD Chronic migraine without aura, with intractable migraine, so stated, with status migrainosus (Primary Dx) Discharge Disposition: Discharged to home or Selfcare 04/22/2025 Travel 04/01/2025 [facility] [place] [facility] [facility] [place] [place] [address] Brad Thacker MD 03/15/2025 [facility] [place] [address] [facility] [place] [address] Keri Huynh APRN, RADIO DISC JOCKEY 02/24/2025 [facility]phone [facility] #2 [place] [address] Keri Huynh APRN, BRAD 02/15/2025 [facility]ill [facility] #2 [place] [address] Keri Huynh APRN, RADIO DISC JOCKEY Medication Refill from Last 3 Months Family History Medical [...] Comments Blood Pressure 122/76 10/30/2023 11:34 AM FINANCE ATTORNEY Pulse 86 10/30/2023 11:34 AM FINANCE ATTORNEY Temperature 36.2 C (97.1 F) 10/30/2023 11:34 AM FINANCE ATTORNEY Respiratory Rate 20 10/30/2023 11:34 AM FINANCE ATTORNEY Oxygen Saturation 100% 10/30/2023 11:34 AM FINANCE ATTORNEY Inhaled Oxygen Concentration - - Weight 67.6 kg (149 lb) 10/30/2023 11:34 AM FINANCE ATTORNEY Height 165.1 cm (5' 5) 10/30/2023 11:34 AM FINANCE ATTORNEY Body Mass Index 24.79 10/30/2023 11:34 AM FINANCE ATTORNEY Plan of Treatment Upcoming Encounters Date Type Department Care Team (Late st Contact Info) Description 05/23/2025 2:00 PM CDT [facility] #2 [place] [address] Keri Huynh, LABOR RELATIONS DIRECTOR, RADIO DISC JOCKEY #[address] [place] [address] 07/22/2025 9:00 AM CDT Procedure Visit [facility] - Neurology - [place] #2 [place] [address] Brad Thacker MD #[address] [place] [address] Health Maintenance Due Date Last Done Comments Hepatitis C Virus (HCV) Screening 1985 Hepatitis B Immunization (1 of 3 - 19+ 3-dose series) 2004 Pap Smear 2006 Human Papillomavirus (HPV) Immunization (1 - 3-dose SCDM series) 2012 Cervical Cancer Screening (CCS) 2015 HPV/Cotest 2015 SARS-COV-2 Immunization (2023- season) 2024 Influenza Immunization (#1) 2025 Respiratory Syncytial Virus (RSV) Immunization (Adult) (1 - 1-dose 75+ series) 2060 DTaP/Tdap/Td Immunization Discontinued 01/27/2025 TdaP Immunization Completed 01/27/2025 Meningococcal Immunization (ACWY) Aged Out No longer eligible based on patient's age to complete this topic Pneumococcal Immunization Combined Aged Out No longer eligible based on patient's age to complete this topic Rotavirus Immunization Aged Out No lo nger eligible based on patient's age to complete this topic Procedures Procedure Name Priority Date/Time Associated Diagnosis Comments CHEMODENERV MUSCLE(S) BILAT FACIAL/TRIGEMINAL/CE RV SPINE Routine 04/22/2025 9:45 AM CDT Chronic migraine without aura, with intractable migraine, so stated, with status migrainosus from Last 3 Months Results * CHEMODENERV MUSCLE(S) BILAT FACIAL/TRIGEMINAL/CERV SPINE (04/22/2025 9:45 AM CDT) Brad Arauz MD - 04/22/2025 9:45 AM Brad Frausto MD 04/22/2025 4:56 PM Shara presents for administration of botox [...] procedure with no complications. Brad Thacker MD [place] - SURGERY Final Result from Last 3 Months Insurance [facility] [employer] Care Teams Mental Hygiene Consultant Relationship Specialty Start Date End Date Duc Gore PAC [address] [place] [address] PCP - General Physician Sports Nutritionist 10/21/16 Rubin Kessler MD [address] [place] [address] Consulting Physician Cardiovascular Disease - Cardiology 05/02/23 Keri Huynh, LABOR RELATIONS DIRECTOR, RADIO DISC JOCKEY [address] [place] [address] Nurse Practitioner Advanced Practice Nurse 07/30/22 Brad Thacker MD #[address] [place] [address] Consulting Physician Neurology 03/21/23
--- OUTSIDE RECORDS SUMMARY | 2025-05-10 18:54 | XMS_ITS | Encounter Summary ---
Author Organization [facility] Address [address] [place] [address] Phone Care Team Providers Care Extruder Operator Multiple Name Role Phone Duc Gore Primary Care Provider [phone] Rubin Kessler MD Unavailable Keri Arreola APRN, RAILROAD DINING CAR STEWARD/STEWARDESS Unavailable +- [phone] Brad Thacker MD Unavailable [phone] Reason for Visit * Reason Comments Medication Refill Encounter Details Date Type Department Care Team (Late st Contact Info) Description 01/23/2021 Refill [facility] - [facility] #[address] [place] [address] Brad Thacker MD [address]2 [place] [address] Medication Refill Social History Tobacco [...] Info) Description 05/23/2025 2:00 PM CDT Telemedicine [facility] - Neurology - [place] [address] [place] [address] Keri Huynh APRN, RAILROAD DINING CAR STEWARD/STEWARDESS [address] [place] [address] 07/22/2025 9:00 AM CDT Procedure Visit [facility] - Neurology - [place] [address] [place] [address] Brad Thacker MD [address] [place] [address] documented as of this encounter Visit Diagnoses Diagnosis Muscle spasm Spasm of muscle documented in this encounter Care Teams Extruder Operator Multiple Relationship Specialty Start Date End Date Duc Gore [facility] [address] [place] [address] PCP - General Physician Tag Machine Operator 10/21/16 Rubin Kessler MD [address] [place] [address] Consulting Physician Cardiovascular Disease - Cardiology 05/02/23 Keri Huynh APRN, RAILROAD DINING CAR STEWARD/STEWARDESS [address] [place] [address] Nurse Practitioner Advanced Practice Nurse 07/30/22 Brad Thacker MD [address] [place] [address] Consulting Physician Neurology 03/21/23 documented as of this encounter
--- OUTSIDE RECORDS SUMMARY | 2025-05-10 18:54 | XMS_ITS | Encounter Summary ---
Author Organization [facility] Address [address] [place] [address] Phone Care Team Providers Care Case Liner Name Role Phone Duc Gore Primary Care Provider [phone] Rubin Kessler MD Unavailable Keri Arreola APRN, VENTILATION WORKER Unavailable +- [phone] Brad Thacker MD Unavailable [phone] Reason for Visit * Reason Comments Medication Refill Encounter Details Date Type Department Care Team (Late st Contact Info) Description 05/27/2023 Refill [facility] - Neurology [facility] #2 [place] [address] Brad Thacker MD [address]2 [place] [address] Medication Refill Social History Tobacco [...] Dept 03/21/23 Procedure Visit Brad Thacker MD [facility] Neurology [facility] 01/28/23 Office Visit Keri Huynh APRN, BRAD [facility] Neurology [facility] 07/30/22 Office Visit Keri Huynh APRN, BRAD [facility] Neurology [facility] Showing recent visits within past 365 days and meeting all other requirements Future Appointments Date Type Provider Dept 06/05/23 Appointment Keri Huynh APRN, CNS [facility] Neurology [facility] 06/13/23 Appointment Brad Thacker MD [facility] Neurology [facility] Showing future appointments within next 90 days and meeting all other requirements documented in this encounter Plan of Treatment Upcoming Encounters Date Type Department Care Team (Late st Contact Info) Description 05/23/2025 2:00 PM CDT Telemedicine [facility] - Neurology - [place] [address] [place] [address] Keri Huynh APRN, VENTILATION WORKER [address] [place] [address] 07/22/2025 9:00 AM CDT Procedure Visit [facility] - Neurology - [place] [address] [place] [address] Brad Thacker MD [address] [place] [address] documented as of this encounter Visit Diagnoses Diagnosis Muscle spasm Spasm of muscle documented in this encounter Care Teams Case Liner Relationship Specialty Start Date End Date Duc Gore, PAC [address] [place] [address] PCP - General Physician Tobacco Stripper Hand 10/21/16 Rubin Kessler MD [address] [place] [address] Consulting Physician Cardiovascular Disease - Cardiology 05/02/23 Keri Huynh APRN, VENTILATION WORKER [address] [place] [address] Nurse Practitioner Advanced Practice Nurse 07/30/22 Brad Thacker MD #[address] [place] [address] Consulting Physician Neurology 03/21/23 documented as of this encounter
--- OUTSIDE RECORDS SUMMARY | 2025-05-10 18:54 | XMS_ITS | Encounter Summary ---
Author Organization [facility] Address [address] [place] [address] Phone Care Team Providers Care Net Washer Name Role Phone Duc Gore Primary Care Provider [phone] Rubin Kessler MD Unavailable Keri Arreola APRN, SOUR BLEACHING PLEATER Unavailable + [phone] Brad Thacker MD Unavailable [phone] Reason for Visit * Reason Comments Medication Refill Encounter Details Date Type Department Care Team (Late st Contact Info) Description 09/25/2021 Refill [facility] - Neurology [facility] #[address] [place] [address] Brda Thacker MD [address] [place] [address] Medication Refill Social History Tobacco [...] RN - 09/25/2021 2:02 PM CST . [facility] REPAIR documented in this encounter Plan of Treatment Upcoming Encounters Date Type Department Care Team (Late st Contact Info) Description 05/23/2025 2:00 PM CDT Telemedicine [facility] Neurology [facility] [address] [place] [address] Keri Huynh APRN, SOUR BLEACHING PLEATER [address] [place] [address] 07/22/2025 9:00 AM CDT Procedure Visit [facility] Neurology [facility] [address] [place] [address] Brad Thacker MD [address] [place] [address] documented as of this encounter Visit Diagnoses Diagnosis Muscle spasm Spasm of muscle documented in this encounter Care Teams Net Washer Relationship Specialty Start Date End Date Duc Gore PAC [address] [place] [address] PCP - General Physician Folder Seamer Automatic 10/21/16 Rubin Kessler MD [address] [place] [address] Consulting Physician Cardiovascular Disease - Cardiology 05/02/23 Keri Huynh TURRET LATHE SET UP OPERATOR, SOUR BLEACHING PLEATER [address] [place] [address] Nurse Practitioner Advanced Practice Nurse 07/30/22 Brad Thacker MD [address] [place] [address] Consulting Physician Neurology 03/21/23 documented as of this encounter
--- OUTSIDE RECORDS SUMMARY | 2025-05-10 18:54 | XMS_ITS | Encounter Summary ---
Author Organization [facility] Address [address] [place] [address] Phone Care Team Providers Care Field Tax Auditor Name Role Phone Duc Gore Primary Care Provider [phone] Rubin Kessler MD Unavailable Keri Arreola APRN, VENEER STOCK GRADER Unavailable +- [phone] Brad Thacker MD Unavailable [phone] Reason for Visit * Reason Comments Medication Refill Encounter Details Date Type Department Care Team (Late st Contact Info) Description 11/22/2020 Refill [facility] - Neurology [facility] #1 [place] [address] Brad Thacker MD [address] [place] [address] Medication Refill Social History Tobacco [...] Info) Description 05/23/2025 2:00 PM CDT Telemedicine [facility] - Neurology - [place] [address] [place] [address] Keri Huynh APRN, VENEER STOCK GRADER [address] [place] [address] 07/22/2025 9:00 AM CDT Procedure Visit [facility] - Neurology - [place] [address] [place] [address] Brad Thacker MD [address] [place] [address] documented as of this encounter Visit Diagnoses Diagnosis Muscle spasm Spasm of muscle documented in this encounter Care Teams Field Tax Auditor Relationship Specialty Start Date End Date Duc Gore [facility] [address] [place] [address] PCP - General Physician Horticultural Services Supervisor 10/21/16 Rubin Kessler MD [address] [place] [address] Consulting Physician Cardiovascular Disease - Cardiology 05/02/23 Keri Huynh APRN, VENEER STOCK GRADER [address] [place] [address] Nurse Practitioner Advanced Practice Nurse 07/30/22 Brad Thacker MD [address] [place] [address] Consulting Physician Neurology 03/21/23 documented as of this encounter
--- OUTSIDE RECORDS SUMMARY | 2025-05-10 18:54 | XMS_ITS | Encounter Summary ---
Author Organization [facility] Address [address] [place] [address] Phone Care Team Providers Care Hot Mill Worker Name Role Phone Duc Gore Primary Care Provider [phone] Rubin Kessler MD Unavailable Keri Arreola APRN, DIRECTOR INVESTMENT BANKING Unavailable + [phone] Brad Thacker MD Unavailable [phone] Reason for Visit * Reason Comments Medication Refill Encounter Details Date Type Department Care Team (Late st Contact Info) Description 04/29/2022 Refill [facility] #[address] [place] [address] Brad Thacker MD [address] [place] [address] Medication Refill Social History Tobacco [...] [facility] [place] [address] [place] [address] Keri Huynh APRN, DIRECTOR INVESTMENT BANKING [address] [place] [address] 07/22/2025 9:00 AM CDT Procedure Visit [facility] - Neurology - [place] [address] [place] [address] Brad Thacker MD [address] [place] [address] documented as of this encounter Visit Diagnoses Diagnosis Muscle spasm Spasm of muscle documented in this encounter Care Teams Hot Mill Worker Relationship Specialty Start Date End Date Duc Gore, [facility] [address] [place] [address] PCP - General Physician Bottom Sander 10/21/16 Rubin Kessler MD [address] [place] [address] Consulting Physician Cardiovascular Disease - Cardiology 05/02/23 Keri Huynh APRN, DIRECTOR INVESTMENT BANKING [address] [place] [address] Nurse Practitioner Advanced Practice Nurse 07/30/22 Brad Thacker MD [address] [place] [address] Consulting Physician Neurology 03/21/23 documented as of this encounter
--- OUTSIDE RECORDS SUMMARY | 2025-05-10 18:54 | XMS_ITS | Encounter Summary ---
Author Organization [facility] Address [address] [place] [address] Phone Care Team Providers Care Slipman Name Role Phone Duc Gore Primary Care Provider [phone] Rubin Kessler MD Unavailable Keri Arreola APRN, OPEN HEARTH MELTER Unavailable +- [phone] Brad Thacker MD Unavailable [phone] Reason for Visit * Reason Comments Medication Refill Encounter Details Date Type Department Care Team (Late st Contact Info) Description 07/21/2021 Refill [facility] - Neurology [facility] #2 [place] [address] Brad Thacker MD #[address] [place] [address] Medication Refill Social History Tobacco [...] Info) Description 05/23/2025 2:00 PM CDT Telemedicine [facility] - Neurology - [place] #[address] [place] [address] Keri Huynh APRN, OPEN HEARTH MELTER [address] [place] [address] 07/22/2025 9:00 AM CDT Procedure Visit [facility] Neurology - [place] #2 [place] [address] Brad Thacker MD [address] [place] [address] documented as of this encounter Visit Diagnoses Diagnosis Muscle spasm Spasm of muscle documented in this encounter Care Teams Slipman Relationship Specialty Start Date End Date Duc Gore PAC [address] [place] [address] PCP - General Physician Telemetry Registered Nurse 10/21/16 Rubin Kessler MD [address] [place] [address] Consulting Physician Cardiovascular Disease - Cardiology 05/02/23 Keri Huynh SENIOR HRIS ANALYST, OPEN HEARTH MELTER [address] [place] [address] Nurse Practitioner Advanced Practice Nurse 07/30/22 Brad Thacker MD #[address] [place] [address] Consulting Physician Neurology 03/21/23 documented as of this encounter
--- OUTSIDE RECORDS SUMMARY | 2025-05-10 18:54 | XMS_ITS | Encounter Summary ---
Author Organization [facility] Address [address] [place] [address] Phone Care Team Providers Care Medical Authorization Specialist Name Role Phone Duc Gore Primary Care Provider [phone] Rubin Kessler MD Unavailable Keri Arreola APRN, DIRECTOR OF INDUSTRIAL RELATIONS Unavailable + [phone] Brad Thacker MD Unavailable [phone] Reason for Visit * Reason Comments Medication Refill Encounter Details Date Type Department Care Team (Late st Contact Info) Description 10/23/[address] [facility] #[address] [place] [address] Brad Thacker MD #[address] [place], [...] Info) Description 05/23/2025 2:00 PM CDT Telemedicine [facility] - Neurology - [place] #[address] [place] [address] Keri Huynh APRN, DIRECTOR OF INDUSTRIAL RELATIONS #[address] [place] [address] 07/22/2025 9:00 AM CDT Procedure Visit [facility] - Neurology - [place] #[address] [place] [address] Brad Thacker MD [address] [place] [address] documented as of this encounter Visit Diagnoses Diagnosis Muscle spasm Spasm of muscle documented in this encounter Care Teams Medical Authorization Specialist Relationship Specialty Start Date End Date Duc Gore, [facility] [address] [place] [address] PCP - General Physician Bridge Rigger 10/21/16 Rubin Kessler MD [address] [place] [address] Consulting Physician Cardiovascular Disease - Cardiology 05/02/23 Keri Huynh APRN, DIRECTOR OF INDUSTRIAL RELATIONS [address] [place] [address] Nurse Practitioner Advanced Practice Nurse 07/30/22 Brad Thacker MD #[address] [place] [address] Consulting Physician Neurology 03/21/23 documented as of this encounter
--- OUTSIDE RECORDS SUMMARY | 2025-05-10 18:54 | XMS_ITS | Encounter Summary ---
Author Organization [facility] Address [address] [place] [address] Phone Care Team Providers Care Knife Setter Assembler Name Role Phone Duc Gore Primary Care Provider [phone] Rubin Kessler MD Unavailable Keri Arreola APRN, DECONTAMINATOR Unavailable + [phone] Bard Thacker MD Unavailable [phone] Reason for Visit * Reason Comments Medication Refill Encounter Details Date Type Department Care Team (Late st Contact Info) Description 06/04/2022 Refill [facility] #2 [place] [address] Brad Thacker MD [address] [place] [address] Medication Refill Social History [...] Description 05/23/2025 2:00 PM CDT Telemedicine [facility] - Neurology - [place] #[address] [place] [address] Keri Huynh APRN, DECONTAMINATOR [address] [place] [address] 07/22/2025 9:00 AM CDT Procedure Visit [facility] - Neurology - [place] #[address] [place] [address] Brad Thacker MD [address] [place] [address] documented as of this encounter Visit Diagnoses Diagnosis Muscle spasm Spasm of muscle documented in this encounter Care Teams Knife Setter Assembler Relationship Specialty Start Date End Date Duc Gore, [facility] [address] [place] [address] PCP - General Physician Technical Support Consultant 10/21/16 Rubin Kessler MD [address] [place] [address] Consulting Physician Cardiovascular Disease - Cardiology 05/02/23 Keri Huynh APRN, DECONTAMINATOR [address] [place] [address] Nurse Practitioner Advanced Practice Nurse 07/30/22 Brad Thacker MD [address] [place] [address] Consulting Physician Neurology 03/21/23 documented as of this encounter
--- NOTE | 2025-05-10 19:00 | ED.GENADULT ---
HPI - General Adult General Chief complaint: Headache Stated complaint: migraine Time Seen by Provider: 05/10/25 18:59 Source: patient Mode of arrival: ambulatory Limitations: no limitations History of Present Illness HPI narrative: 39 years old white female came to the ED with migraine headache, diffuse throbbing headache all over started 5 days ago, in the last 24 hour associated with nausea and frequent vomiting. Patient report having similar symptoms secondary to migraine headache numerous of time in the past. She denies any fever, chills, chest pain, abdominal pain, back pain or focal neuro deficit. She reports a lot of stress lately. Patient reported history of hypokalemia when she have frequent vomiting Related Data Home Medications ?Medication ?Instructions ?Recorded ?Confirmed ?Last Taken ?Type cyclobenzaprine 10 mg tablet mg 01/27/25 Unknown History Allergies Allergy/AdvReac Type Severity Reaction Status Date / Time Penicillins Allergy Mild Itching Verified 01/27/25 18:16 Review of Systems Review of Systems: All systems reviewed & are unremarkable except as noted in HPI and below PMFSH Past Medical History Medical History Patient denies medical problems Exam Narrative: General appearance: Well-developed, well-nourished looks in pain Skin: Normal color Head: Normocephalic, nontraumatic Eyes: Clear conjunctiva ENT: Oropharynx normal, ears normal, nose normal Neck: Supple, nontender Chest and respiratory: Airway patent, no respiratory distress, no accessory muscle use Heart: Regular rate/rhythm Abdomen: Soft, nontender, no organomegaly, quiet bowel sounds Vascular: Normal peripheral pulses, normal capillary refill. Musculoskeletal: Normal range of motion, nontender back Neurologic: Alert and oriented ?3, FREELANCE DISPLAYER is normal as tested, no gross motor deficit Course Vital Signs Vital signs: Vital Signs Temperature 36.7 C 05/10/25 18:53 Pulse Rate 76 05/10/25 18:53 Respiratory Rate 16 05/10/25 18:53 Blood Pressure 132/99 H 05/10/25 18:53 Pulse Oximetry 99 05/10/25 18:53 Oxygen Delivery Room Air 05/10/25 18:53 Temperature 36.7 C 05/10/25 18:53 Pulse Rate 76 05/10/25 18:53 Respiratory Rate 16 05/10/25 18:53 Blood Pressure 132/99 H 05/10/25 18:53 Pulse Oximetry 99 05/10/25 18:53 Oxygen Delivery Room Air 05/10/25 18:53 Medical Decision Making [facility] Narrative Medical decision making narrative: differential diagnosis anxiety like symptoms, migraine headache, hypokalemia PATIENT'S SYMPTOM RESOLVED TO 0/10 AFTER IV FLUID, ZOFRAN, REGLAN AND BENADRYL Vital Signs Vital Signs: Vital Signs Temperature 36.7 C 05/10/25 18:53 Pulse Rate 76 05/10/25 18:53 Respiratory Rate 16 05/10/25 18:53 Blood Pressure 132/99 H 05/10/25 18:53 Pulse Oximetry 99 05/10/25 18:53 Oxygen Delivery Room Air 05/10/25 18:53 Temperature 36.7 C 05/10/25 18:53 Pulse Rate 76 05/10/25 18:53 Respiratory Rate 16 05/10/25 18:53 Blood Pressure 132/99 H 05/10/25 18:53 Pulse Oximetry 99 05/10/25 18:53 Oxygen Delivery Room Air 05/10/25 18:53 Lab Data 05/10/25 19:21 Labs: Lab Results 05/10/25 Range/Units 19:21 Sodium 140 (137-145) mmol/L Potassium 3.8 (3.4-5.0) mmol/L Chloride 109 H (98-107) mmol/L Carbon Dioxide 22 (22-30) mmol/L Anion Gap 9 (4-12) mmol/L BUN 12 (7-17) mg/dL Creatinine 0.77 (0.7-1.0) mg/dL Estim Creat Clear Calc 77 ml/min Estimated GFR > 60 (59 - ) Glucose 108 (65-110) mg/dL Calculated Osmolality 290 (285-295) mOsm/kg Calcium 9.5 (8.4-10.2) mg/dL Critical Care Time Critical Care Time Critical Care Time: No Discharge Plan Discharge Clinical Impression: Headache, migraine Patient Disposition: Home Condition: Improved Instructions: Migraine Headache (ED) Patient Language: Japanese Prescriptions: No Action cyclobenzaprine 10 mg tablet sulfamethoxazole-trimethoprim [Bactrim DS] 800-160 mg tablet 1 tablet PO Q12H Qty: 14 0RF Follow-up/Referrals: Sofía,SHILPA Steel [Primary Care Provider] -
--- NOTE | 2025-05-10 19:06 | PC.NURSE ---
DR DE LA PAZ AT THE BEDSIDE
[2025-05-10] MEDS: SODIUM CHLORIDE 0.9% IV 1,000 ML 999 ML IV CONT (19:27)
--- OUTSIDE RECORDS SUMMARY | 2025-05-10 19:27 | XMS_ITS | Encounter Summary ---
Author Organization [facility] Address [address] [place] [address] Phone Care Team Providers Care Corporate Tutor Name Role Phone Duc Gore Primary Care Provider [phone] Rubin Kessler MD Unavailable Keri Arreola APRN, CHUCKING MACHINE OPERATOR Unavailable [phone] Brad Thacker MD Unavailable Reason for Visit * Reason Comments Medication Refill Encounter Details Date Type Department Care Team (Late st Contact Info) Description 03/11/2023 Refill [facility] - Neurology [facility] #2 [place] [address] Keri Huynh, PERSONAL INVESTMENT ADVISER, CHUCKING MACHINE OPERATOR #[address] [place] [address] Medication Refill Social History Tobacco Use Types [...] Office Visit Keri Huynh APRN, BRAD [facility] [place] 07/30/22 Office Visit Keri Huynh APRN, CHUCKING MACHINE OPERATOR [facility] Showing recent visits within past 365 days and meeting all other requirements Future Appointments Date Type Provider Dept 03/21/23 Appointment Brad Thacker MD [facility] 04/29/23 Appointment Keri Huynh APRN, CNS [facility] Showing future appointments within next 90 days and meeting all other requirements documented in this encounter Plan of Treatment Upcoming Encounters Date Type Department Care Team (Late st Contact Info) Description 05/23/2025 2:00 PM CDT Telemedicine [facility] - Neurology - [place] #2 [place] [address] Keri Huynh APRN, CHUCKING MACHINE OPERATOR #[address] [place] [address] 07/22/2025 9:00 AM CDT Procedure Visit [facility] - Neurology - [place] #[address] [place] [address] Brad Thacker MD #[address] [place] [address] documented as of this encounter Visit Diagnoses Diagnosis Chronic migraine without aura, with intractable migraine, so stated, with status migrainosus documented in this encounter Care Teams Corporate Tutor Relationship Specialty Start Date End Date Duc Gore [facility] [address] [place] [address] PCP - General Physician Study Assistant 10/21/16 Rubin Kessler MD [address] [place] [address] Consulting Physician Cardiovascular Disease - Cardiology 05/02/23 Keri Huynh APRN, CHUCKING MACHINE OPERATOR #[address] [place] [address] Nurse Practitioner Advanced Practice Nurse 07/30/22 Brad Thacker MD #[address] [place] [address] Consulting Physician Neurology 03/21/23 documented as of this encounter
--- OUTSIDE RECORDS SUMMARY | 2025-05-10 19:27 | XMS_ITS | Encounter Summary ---
Author Organization [facility] Address [address] [place] [address] Phone Care Team Providers Care Recruitment Consultant Name Role Phone KaylaDuc spring Primary Care Provider [phone] Rubin Kessler MD Unavailable Keri Arreola APRN, LICENSE CLERK Unavailable +- [phone] Brad Thacker MD Unavailable [phone] Reason for Visit * Reason Onset Date Comments Prior Authorization 01/11/2025 Encounter Details Date Type Department Care Team (Late st Contact Info) Description 01/11/2025 Telephone [facility] Specialty [address] [place] [address] Keri Huynh, COMPUTER INSTRUCTOR, LICENSE CLERK [address] [place] [address] Prior Authorization Social History Tobacco Use Types [...] please let me know. Thanks Belén Walker [facility] Specialty documented in this encounter Plan of Treatment Upcoming Encounters Date Type Department Care Team (Late st Contact Info) Description 05/23/2025 2:00 PM CDT Telemedicine [facility] - Neurology - [place] #2 [place] [address] Keri Huynh APRN, LICENSE CLERK [address] [place] [address] 07/22/2025 9:00 AM CDT Procedure Visit [facility] - Neurology - [place] #[address] [place] [address] Brad Thacker MD #[address] [place] [address] documented as of this encounter Visit Diagnoses Not on filedocumented in this encounter Care Teams Recruitment Consultant Relationship Specialty Start Date End Date Duc Gore PAC [address] [place] [address] PCP - General Physician Critical Care Transport Nurse 10/21/16 Rubin Kessler MD [address] [place] [address] Consulting Physician Cardiovascular Disease - Cardiology 05/02/23 Keri Huynh APRN, LICENSE CLERK #[address] [place] [address] Nurse Practitioner Advanced Practice Nurse 07/30/22 Brad Thacker MD #[address] [place] [address] Consulting Physician Neurology 03/21/23 documented as of this encounter
--- OUTSIDE RECORDS SUMMARY | 2025-05-10 19:27 | XMS_ITS | Encounter Summary ---
Author Organization [facility] Address [address] [place] [address] Phone Care Team Providers Care Probation And Parole Officer Name Role Phone Duc Gore Primary Care Provider [phone] Rubin Kessler MD Unavailable Keri Arreola APRN, FARM TECHNICIAN Unavailable [phone] Brad Thacker MD Unavailable [phone] Reason for Visit * Reason Comments Medication Refill Encounter Details Date Type Department Care Team (Late st Contact Info) Description 03/12/2023 Refill [facility] - Neurology [facility] #2 [place] [address] Keri Huynh, CNC LATHE PROGRAMMER, FARM TECHNICIAN [address] [place] [address] Medication Refill Social History Tobacco Use Types [...] Info) Description 05/23/2025 2:00 PM CDT Telemedicine [facility] - Neurology - [place] #2 [place] [address] Keri Huynh APRN, FARM TECHNICIAN [address] [place] [address] 07/22/2025 9:00 AM CDT Procedure Visit [facility] Neurology - [place] #2 [place] [address] Brad Thacker MD [address]2 [place] [address] documented as of this encounter Visit Diagnoses Diagnosis Low serum vitamin B12 documented in this encounter Care Teams Probation And Parole Officer Relationship Specialty Start Date End Date Duc Gore PAC [address] [place] [address] PCP - General Physician Front End Software Developer 10/21/16 Rubin Kessler MD [address] [place] [address] Consulting Physician Cardiovascular Disease - Cardiology 05/02/23 Keri Huynh APRN, FARM TECHNICIAN [address] [place] [address] Nurse Practitioner Advanced Practice Nurse 07/30/22 Brad Thacker MD [address] [place] [address] Consulting Physician Neurology 03/21/23 documented as of this encounter
[2025-05-10] MEDS: METOCLOPRAMIDE HCL INJ 10 MG/2 ML VIAL IV PUSH (19:28)
[2025-05-10] MEDS: ONDANSETRON INJ 4 MG/2 ML VIAL 8 MG IV PUSH (19:28)
--- OUTSIDE RECORDS SUMMARY | 2025-05-10 19:28 | XMS_ITS | Encounter Summary ---
Author Organization [facility] Address [address] [place] [address] Phone Care Team Providers Care Public Health Specialist Name Role Phone Duc Gore Primary Care Provider [phone] Rubin Kessler MD Unavailable Keri Arreola APRN, BOWLING BALL MOLDER Unavailable +- [phone] Brad Thacker MD Unavailable [phone] Reason for Visit * Reason Comments Medication Refill Encounter Details Date Type Department Care Team (Late st Contact Info) Description 08/24/2021 Refill [facility] - Neurology [facility] [address] [place] [address] Brad Thacker MD [address] [place] [address] Medication Refill Social History Tobacco [...] - 08/24/2021 9:02 AM CST . . OR SALES EXECUTIVE documented in this encounter Plan of Treatment Upcoming Encounters Date Type Department Care Team (Late st Contact Info) Description 05/23/2025 2:00 PM CDT Telemedicine [facility] Neurology [facility] [address] [place] [address] Keri Huynh CORE INSERTER, BOWLING BALL MOLDER [address] [place] [address] 07/22/2025 9:00 AM CDT Procedure Visit [facility] #2 [place] [address] Brad Thacker MD [address] [place] [address] documented as of this encounter Visit Diagnoses Diagnosis Muscle spasm Spasm of muscle documented in this encounter Care Teams Public Health Specialist Relationship Specialty Start Date End Date Duc Gore PAC [address] [place] [address] PCP - General Physician Drawing Press Operator 10/21/16 Rubin Kessler MD [address] [place] [address] Consulting Physician Cardiovascular Disease - Cardiology 05/02/23 Keri Huynh, CORE INSERTER, BOWLING BALL MOLDER [address] [place] [address] Nurse Practitioner Advanced Practice Nurse 07/30/22 Brad Thacker MD [address] [place] [address] Consulting Physician Neurology 03/21/23 documented as of this encounter
--- OUTSIDE RECORDS SUMMARY | 2025-05-10 19:28 | XMS_ITS | Clinical Summary ---
Author Organization [facility] Address [address] [place] [address] Phone Care Team Providers Care Credit Front Office Developer Name Role Phone Duc Gore Primary Care Provider [phone] Rubin Kessler MD Unavailable Unavai Keri Yadav APRN, MORGUE KEEPER Unavailable +- [phone] Brad Thacker MD Unavailable [phone] Allergies Active Allergy Reactions Criticality Noted Date [...] Type Department Care Team Description 05/10/2025 Telephone [facility] - [place] [address] [place] [address] Keri Huynh APRN, MORGUE KEEPER 04/22/2025 9:45 AM CDT Procedure Visit [facility] Neurology - [place] [address] [place] [address] Brad Thacker MD Chronic migraine without aura, with intractable migraine, so stated, with status migrainosus (Primary Dx) Discharge Disposition: Discharged to home or Selfcare 04/22/2025 Travel 04/01/2025 Telephone [facility] Neurology - [place] [address] [facility] [place] [address] Brad Thacker MD 03/15/2025 Telephone [facility] Neurology - [place] [address] [place] [address] Keri Huynh APRN, MORGUE KEEPER 02/24/2025 Telephone [facility] Neurology [facility] #2 [place] [address] Keri Huynh APRN, BRAD 02/15/2025 Refill [facility] Neurology [facility] #[address] [place] [address] Keri Huynh APRN, MORGUE KEEPER Medication Refill from Last 3 Months Family [...] Comments Blood Pressure 122/76 10/30/2023 11:34 AM DIRECTOR RETAIL BRAND DEVELOPMENT Pulse 86 10/30/2023 11:34 AM DIRECTOR RETAIL BRAND DEVELOPMENT Temperature 36.2 C (97.1 F) 10/30/2023 11:34 AM DIRECTOR RETAIL BRAND DEVELOPMENT Respiratory Rate 20 10/30/2023 11:34 AM DIRECTOR RETAIL BRAND DEVELOPMENT Oxygen Saturation 100% 10/30/2023 11:34 AM DIRECTOR RETAIL BRAND DEVELOPMENT Inhaled Oxygen Concentration - - Weight 67.6 kg (149 lb) 10/30/2023 11:34 AM DIRECTOR RETAIL BRAND DEVELOPMENT Height 165.1 cm (5' 5) 10/30/2023 11:34 AM DIRECTOR RETAIL BRAND DEVELOPMENT Body Mass Index 24.79 10/30/2023 11:34 AM DIRECTOR RETAIL BRAND DEVELOPMENT Plan of Treatment Upcoming Encounters Date Type Department Care Team (Late st Contact Info) Description 05/23/2025 2:00 PM CDT Telemedicine [facility] Neurology [facility] #2 [place] [address] Keri Huynh, BUFFER COPPER, MORGUE KEEPER [address] [place] [address] 07/22/2025 9:00 AM CDT Procedure Visit [facility] - Neurology - [place] [address] [place] [address] Brad Thacker MD [address] [place] [address] Health Maintenance Due Date Last Done Comments [...] procedure with no complications. Brad Thacker MD NE - SURGERY Final Result from Last 3 Months Insurance [facility] [employer] Care Teams Credit Front Office Developer Relationship Specialty Start Date End Date Duc Gore PAC [address] [place] [address] PCP - General Physician Computer Trainer 10/21/16 Rubin Kessler MD [address] [place] [address] Consulting Physician Cardiovascular Disease - Cardiology 05/02/23 Keri Huynh, BUFFER COPPER, MORGUE KEEPER [address] [place] [address] Nurse Practitioner Advanced Practice Nurse 07/30/22 Brad Thacker MD [address] [place] [address] Consulting Physician Neurology 03/21/23
--- OUTSIDE RECORDS SUMMARY | 2025-05-10 19:28 | XMS_ITS | Encounter Summary ---
Author Organization [facility] Address [address] [place] [address] Phone Care Team Providers Care Software Asset Manager Name Role Phone Duc Gore Primary Care Provider [phone] Rubin Kessler MD Unavailable Keri Arreola APRN, DIRECTOR GLOBAL MARKET RESEARCH Unavailable [phone]- [phone] Brad Thacker MD Unavailable [phone] Reason for Visit * Reason Comments Medication Refill Encounter Details Date Type Department Care Team (Late Contact Info) Description 09/20/2020 Refill [facility] - Neurology [facility] #1 [place] [address] Brad Thacker MD #2 [place] [address] Medication Refill Social History Tobacco [...] Info) Description 05/23/2025 2:00 PM CDT Telemedicine [facility] - Neurology - [place] #[address] [place] [address] Keri Huynh APRN, DIRECTOR GLOBAL MARKET RESEARCH [address] [place] [address] 07/22/2025 9:00 AM CDT Procedure Visit [facility] - Neurology - [place] [address] [place] [address] Brad Thacker MD [address] [place] [address] documented as of this encounter Visit Diagnoses Diagnosis Muscle spasm Spasm of muscle documented in this encounter Care Teams Software Asset Manager Relationship Specialty Start Date End Date Duc Gore [facility] [address] [place] [address] PCP - General Physician Top Flavor Attendant 10/21/16 Rubin Kessler MD [address] [place] [address] Consulting Physician Cardiovascular Disease - Cardiology 05/02/23 Keri Huynh APRN, DIRECTOR GLOBAL MARKET RESEARCH [address] [place] [address] Nurse Practitioner Advanced Practice Nurse 07/30/22 Brad Thacker MD [address] [place] [address] Consulting Physician Neurology 03/21/23 documented as of this encounter
--- OUTSIDE RECORDS SUMMARY | 2025-05-10 19:28 | XMS_ITS | Encounter Summary ---
Author Organization [facility] Address [address] [place] [address] Phone Care Team Providers Care Cannoneer Name Role Phone Duc Gore Primary Care Provider [phone] Rubin Kessler MD Unavailable Keri Arreola APRN, DEVELOPER AUTOMATIC Unavailable [phone]- [phone] Brad Thacker MD Unavailable [phone] Reason for Visit * Reason Comments Medication Refill Encounter Details Date Type Department Care Team (Late st Contact Info) Description 02/19/2021 Refill [facility] - [facility] #1 [place] [address] Brad Thacker MD [address] [place] [address] Medication Refill Social History Tobacco [...] [facility] - Neurology - [place] [address] [place] [address] Keri Huynh APRN, DEVELOPER AUTOMATIC [address] [place] [address] 07/22/2025 9:00 AM CDT Procedure Visit [facility] - Neurology - [place] #[address] [place] [address] Brad Thacker MD [address] [place] [address] documented as of this encounter Visit Diagnoses Diagnosis Muscle spasm Spasm of muscle documented in this encounter Care Teams Cannoneer Relationship Specialty Start Date End Date Duc Gore [facility] [address] [place] [address] PCP - General Physician Tree Surgeon 10/21/16 Rubin Kessler MD [address] [place] [address] Consulting Physician Cardiovascular Disease - Cardiology 05/02/23 Keri Huynh APRN, DEVELOPER AUTOMATIC [address] [place] [address] Nurse Practitioner Advanced Practice Nurse 07/30/22 Brad Thacker MD [address] [place] [address] Consulting Physician Neurology 03/21/23 documented as of this encounter
--- OUTSIDE RECORDS SUMMARY | 2025-05-10 19:28 | XMS_ITS | Encounter Summary ---
Author Organization [facility] Address [address] [place] [address] Phone Care Team Providers Care Return To Service Inspector Name Role Phone Duc Gore Primary Care Provider [phone] Rubin Kessler MD Unavailable Keri Arreola APRN, SENIOR POWER SCHEDULER Unavailable + [phone] Brad Thacker MD Unavailable [phone] Reason for Visit * Reason Comments Medication Refill Encounter Details Date Type Department Care Team (Late st Contact Info) Description 09/25/2021 Refill [facility] - Neurology [facility] #2 [place] [address] Brad Thacker MD [address] [place] [address] Medication Refill Social History Tobacco [...] RN - 09/25/2021 2:02 PM CST . DESIGNER documented in this encounter Plan of Treatment Upcoming Encounters Date Type Department Care Team (Late st Contact Info) Description 05/23/2025 2:00 PM CDT Telemedicine [facility] Neurology [facility] #[address] [place] [address] Keri Huynh APRN, SENIOR POWER SCHEDULER [address] [place] [address] 07/22/2025 9:00 AM CDT Procedure Visit [facility] Neurology [facility] #[address] [place] [address] Brad Thacker MD [address] [place] [address] documented as of this encounter Visit Diagnoses Diagnosis Muscle spasm Spasm of muscle documented in this encounter Care Teams Return To Service Inspector Relationship Specialty Start Date End Date Duc Gore PAC [address] [place] [address] PCP - General Physician Party Planner 10/21/16 Rubin Kessler MD [address] [place] [address] Consulting Physician Cardiovascular Disease - Cardiology 05/02/23 Keri Huynh FITNESS TECHNICIAN, SENIOR POWER SCHEDULER [address] [place] [address] Nurse Practitioner Advanced Practice Nurse 07/30/22 Brad Thacker MD [address] [place] [address] Consulting Physician Neurology 03/21/23 documented as of this encounter
--- OUTSIDE RECORDS SUMMARY | 2025-05-10 19:28 | XMS_ITS | Encounter Summary ---
Author Organization [facility] Address [address] [place] [address] Phone Care Team Providers Care Extension Professor Name Role Phone Duc Gore Primary Care Provider Rubin Kessler MD Unavailable Keri Arreola APRN, FOOD ASSEMBLER Unavailable [phone] Brad Thacker MD Unavailable [phone] Encounter Details Date Type Department Care Team (Late st Contact Info) Description 05/10/2025 Telephone [facility] - Neurology - [place] [address] [place] [address] Keri Huynh, VICE PRESIDENT OF COMMUNICATIONS, FOOD ASSEMBLER [address] [place] [address] Social History Tobacco Use Types Packs/Day Years [...] 05/23/2025 2:00 PM CDT Telemedicine [facility] Neurology [facility] #2 [place] [address] Keri Huynh APRN, FOOD ASSEMBLER [address] [place] [address] 07/22/2025 9:00 AM CDT Procedure Visit [facility] Neurology [facility] [address] [place] [address] Brad Thacker MD [address] [place] [address] Scheduled Orders Name Type Priority Associated Diagnoses Orde r Schedule BASIC METABOLIC PANEL W/ CALCIUM TOTAL Lab STAT Chronic migraine without aura, with intractable migraine, so stated, with status migrainosus Expected: 05/10/2025, Expires: 09/09/2025 documented as of this encounter Visit Diagnoses Diagnosis Chronic migraine without aura, with intractable migraine, so stated, with status migrainosus- Primary documented in this encounter Care Teams Extension Professor Relationship Specialty Start Date End Date Duc Gore PAC [address] [place] [address] PCP - General Physician Director Of Audiology 10/21/16 Rubin Kessler MD [address] [place] [address] Consulting Physician Cardiovascular Disease - Cardiology 05/02/23 Keri Huynh APRN, FOOD ASSEMBLER [address] [place] [address] Nurse Practitioner Advanced Practice Nurse 07/30/22 Brad Thacker MD [address] [place] [address] Consulting Physician Neurology 03/21/23 documented as of this encounter
--- OUTSIDE RECORDS SUMMARY | 2025-05-10 19:28 | XMS_ITS | Encounter Summary ---
Author Organization [facility] Address [address] [place] [address] Phone Care Team Providers Care Auto Transmission Mechanic Name Role Phone Duc Gore Primary Care Provider [phone] Rubin Kessler MD Unavailable Keri Arreola APRN, RING MAKER Unavailable [phone]- [phone] Brad Thacker MD Unavailable [phone] Reason for Visit * Reason Comments Medication Refill Encounter Details Date Type Department Care Team (Late st Contact Info) Description 08/08/2022 Refill [facility] - Neurology [facility] #2 [place] [address] Brad Thacker MD [address] [place] [address] Medication Refill Social History Tobacco [...] Info) Description 05/23/2025 2:00 PM CDT Telemedicine [facility] - Neurology - [place] #[address] [place] [address] Keri Huynh APRN, RING MAKER [address] [place] [address] 07/22/2025 9:00 AM CDT Procedure Visit [facility] Neurology - [place] [address] [place] [address] Brad Thacker MD [address] [place] [address] documented as of this encounter Visit Diagnoses Diagnosis Muscle spasm Spasm of muscle documented in this encounter Care Teams Auto Transmission Mechanic Relationship Specialty Start Date End Date Duc Gore PAC [address] [place] [address] PCP - General Physician Video Production Engineer 10/21/16 Rubin Kessler MD [address] [place] [address] Consulting Physician Cardiovascular Disease - Cardiology 05/02/23 Keri Huynh POUCH MAKER, RING MAKER [address] [place] [address] Nurse Practitioner Advanced Practice Nurse 07/30/22 Brad Thacker MD [address] [place] [address] Consulting Physician Neurology 03/21/23 documented as of this encounter
--- OUTSIDE RECORDS SUMMARY | 2025-05-10 19:28 | XMS_ITS | Encounter Summary ---
Author Organization [facility] Address [address] [place] [address] Phone Care Team Providers Care Card Reader Name Role Phone uDc Gore Primary Care Provider [phone] Rubin Kessler MD Unavailable Keri Arreola APRN, STOCK SUPERVISOR Unavailable +- [phone] Brad Thacker MD Unavailable [phone] Reason for Visit * Reason Comments Medication Refill Encounter Details Date Type Department Care Team (Late st Contact Info) Description 07/21/2021 Refill [facility] - Neurology [facility] #2 [place] [address] Brad Thacker MD [address] [place] [address] Medication Refill Social History Tobacco [...] Description 05/23/2025 2:00 PM CDT Telemedicine [facility] - Neurology - [place] #[address] [place] [address] Keri Huynh APRN, STOCK SUPERVISOR #[address] [place] [address] 07/22/2025 9:00 AM CDT Procedure Visit [facility] Neurology - [place] #2 [place] [address] Brad Thacker MD [address] [place] [address] documented as of this encounter Visit Diagnoses Diagnosis Muscle spasm Spasm of muscle documented in this encounter Care Teams Card Reader Relationship Specialty Start Date End Date Duc Gore PAC [address] [place] [address] PCP - General Physician Silo Erector 10/21/16 Rubin Kessler MD [address] [place] [address] Consulting Physician Cardiovascular Disease - Cardiology 05/02/23 Keri Huynh MANAGER IT TRAINING, STOCK SUPERVISOR [address] [place] [address] Nurse Practitioner Advanced Practice Nurse 07/30/22 Brad Thacker MD [address] [place] [address] Consulting Physician Neurology 03/21/23 documented as of this encounter
--- OUTSIDE RECORDS SUMMARY | 2025-05-10 19:28 | XMS_ITS | Encounter Summary ---
Author Organization [facility] Address [address] [place] [address] Phone Care Team Providers Care Custodian Supervisor Name Role Phone Duc Gore Primary Care Provider [phone] Rubin Kessler MD Unavailable Keri Arreola APRN, DATA NETWORK ARCHITECT Unavailable + [phone] Brad Thacker MD Unavailable [phone] Reason for Visit * Reason Comments Medication Refill Encounter Details Date Type Department Care Team (Late st Contact Info) Description 10/22/2021 Refill [facility] - [facility] #2 [place] [address] Brad Thacker MD #[address] [place] [address] Medication Refill Social History Tobacco [...] [facility] - [facility] - [place] [address] [place] [address] Keri Huynh APRN, DATA NETWORK ARCHITECT [address] [place] [address] 07/22/2025 9:00 AM CDT Procedure Visit [facility] - Neurology - [place] [address] [place] [address] Brad Thacker MD #[address] [place] [address] documented as of this encounter Visit Diagnoses Diagnosis Muscle spasm Spasm of muscle documented in this encounter Care Teams Custodian Supervisor Relationship Specialty Start Date End Date Duc Gore, [facility] [address] [place] [address] PCP - General Physician Fermentologist 10/21/16 Rubin Kessler MD [address] [place] [address] Consulting Physician Cardiovascular Disease - Cardiology 05/02/23 Keri Huynh APRN, DATA NETWORK ARCHITECT [address] [place] [address] Nurse Practitioner Advanced Practice Nurse 07/30/22 Brad Thacker MD #[address] [place] [address] Consulting Physician Neurology 03/21/23 documented as of this encounter
--- OUTSIDE RECORDS SUMMARY | 2025-05-10 19:28 | XMS_ITS | Encounter Summary ---
Author Organization [facility] Address [address] [place] [address] Phone Care Team Providers Care Optical Laboratory Mechanic Name Role Phone Duc Gore Primary Care Provider [phone] Rubin Kessler MD Unavailable Keri Arreola APRN, PHYS THER Unavailable + [phone] Brad Thacker MD Unavailable [phone] Reason for Visit * Reason Comments Medication Refill Encounter Details Date Type Department Care Team (Late Contact Info) Description 06/21/2021 Refill [facility] [place] [facility] #2 [place] [address] Brad Thacker MD #[address] [place] [address] Medication Refill Social History Tobacco [...] [facility] - Neurology - [place] #2 [place] [address] Keri Huynh APRN, PHYS THER [address] [place] [address] 07/22/2025 9:00 AM CDT Procedure Visit [facility] - Neurology - [place] #[address] [place] [address] Brad Thacker MD #[address] [place] [address] documented as of this encounter Visit Diagnoses Diagnosis Muscle spasm Spasm of muscle documented in this encounter Care Teams Optical Laboratory Mechanic Relationship Specialty Start Date End Date Duc Gore [facility] [address] [place] [address] PCP - General Physician Grey Goods Tester 10/21/16 Rubin Kessler MD [address] [place] [address] Consulting Physician Cardiovascular Disease - Cardiology 05/02/23 Krei Huynh APRN, PHYS THER [address] [place] [address] Nurse Practitioner Advanced Practice Nurse 07/30/22 Brad Thacker MD #[address] [place] [address] Consulting Physician Neurology 03/21/23 documented as of this encounter
--- OUTSIDE RECORDS SUMMARY | 2025-05-10 19:28 | XMS_ITS | Encounter Summary ---
Author Organization [facility] Address [address] [place] [address] Phone Care Team Providers Care Lien Searcher Name Role Phone Duc Gore Primary Care Provider [phone] Rubin Kessler MD Unavailable Keri Arreola APRN, GRAPHITE GRINDER Unavailable + [phone] Brad Thacker MD Unavailable [phone] Reason for Visit * Reason Comments Medication Refill Encounter Details Date Type Department Care Team (Late st Contact Info) Description 01/27/2022 Refill [facility] #2 [place] [address] Brad Thacker MD #[address] [place] [address] Medication Refill Social History Tobacco [...] Description 05/23/2025 2:00 PM CDT Telemedicine [facility] - Neurology - [place] #[address] [place] [address] Keri Huynh APRN, GRAPHITE GRINDER [address] [place] [address] 07/22/2025 9:00 AM CDT Procedure Visit [facility] - Neurology - [place] [address] [place] [address] Brad Thacker MD #[address] [place] [address] documented as of this encounter Visit Diagnoses Diagnosis Muscle spasm Spasm of muscle documented in this encounter Care Teams Lien Searcher Relationship Specialty Start Date End Date Duc Gore, [facility] [address] [place] [address] PCP - General Physician Windshield Repair Technician 10/21/16 Rubin Kessler MD [address] [place] [address] Consulting Physician Cardiovascular Disease - Cardiology 05/02/23 Keri Huynh APRN, GRAPHITE GRINDER [address] [place] [address] Nurse Practitioner Advanced Practice Nurse 07/30/22 Brad Thacker MD #[address] [place] [address] Consulting Physician Neurology 03/21/23 documented as of this encounter
--- OUTSIDE RECORDS SUMMARY | 2025-05-10 19:28 | XMS_ITS | Encounter Summary ---
Author Organization [facility] Address [address] [place] [address] Phone Care Team Providers Care Hourly Sales Staff Name Role Phone Duc Gore Primary Care Provider [phone] Rubin Kessler MD Unavailable Keri Arreola APRN, GOAT DRIVER Unavailable +- [phone] Brad Thacker MD Unavailable +[phone] Reason for Visit * Reason Comments Medication Refill Encounter Details Date Type Department Care Team (Late st Contact Info) Description 12/24/2020 Refill [facility] Neurology [facility] #1 [place] [address] Brad Thacker MD #2 [place] [address] Medication Refill Social History Tobacco [...] Info) Description 05/23/2025 2:00 PM CDT Telemedicine [facility] - Neurology - [place] #2 [place] [address] Keri Huynh APRN, GOAT DRIVER #2 [place] [address] 07/22/2025 9:00 AM CDT Procedure Visit [facility] - Neurology - [place] #2 [place] [address] Brad Thacker MD #2 [place] [address] documented as of this encounter Visit Diagnoses Diagnosis Muscle spasm Spasm of muscle documented in this encounter Care Teams Hourly Sales Staff Relationship Specialty Start Date End Date Duc Gore [facility] [address] [place] [address] PCP - General Physician Rn Case Manager Hospice 10/21/16 Rubin Kessler MD [address] [place] [address] Consulting Physician Cardiovascular Disease - Cardiology 05/02/23 Keri Huynh APRN, GOAT DRIVER #2 [place] [address] Nurse Practitioner Advanced Practice Nurse 07/30/22 Brad Thacker MD #2 [place] [address] Consulting Physician Neurology 03/21/23 documented as of this encounter
--- OUTSIDE RECORDS SUMMARY | 2025-05-10 19:28 | XMS_ITS | Encounter Summary ---
Author Organization [facility] Address [address] [place] [address] Phone Care Team Providers Care Petroleum Plant Operator Name Role Phone Duc Gore Primary Care Provider [phone] Rubin Kessler MD Unavailable Keri Arreola APRN, PERMASTONE INSTALLER Unavailable + [phone] Brad Thacker MD Unavailable +[phone] Reason for Visit * Reason Comments Medication Refill Encounter Details Date Type Department Care Team (Late st Contact Info) Description 10/23/2022 Refill [facility] [place] [facility] #2 [place] [address] Brad Thacker MD #2 [place] [address] Medication Refill Social History Tobacco [...] Info) Description 05/23/2025 2:00 PM CDT Telemedicine [facility] - Neurology - [place] #2 [place] [address] Keri Huynh APRN, PERMASTONE INSTALLER #2 [place] [address] 07/22/2025 9:00 AM CDT Procedure Visit [facility] - Neurology - [place] #2 [place] [address] Brad Thacker MD #2 [place] [address] documented as of this encounter Visit Diagnoses Diagnosis Muscle spasm Spasm of muscle documented in this encounter Care Teams Petroleum Plant Operator Relationship Specialty Start Date End Date Duc Gore, [facility] [address] [place] [address] PCP - General Physician Physicist [place] 10/21/16 Rubin Kessler MD [address] [place] [address] Consulting Physician Cardiovascular Disease - Cardiology 05/02/23 Keri Huynh APRN, PERMASTONE INSTALLER #2 [place] [address] Nurse Practitioner Advanced Practice Nurse 07/30/22 Brad Thacker MD #2 [place] [address] Consulting Physician Neurology 03/21/23 documented as of this encounter
--- OUTSIDE RECORDS SUMMARY | 2025-05-10 19:28 | XMS_ITS | Encounter Summary ---
Author Organization [facility] Address [address] [place] [address] Phone Care Team Providers Care Sales Representative Cash Registers Name Role Phone Duc Gore Primary Care Provider [phone] Rubin Kessler MD Unavailable Keri Arreola APRN, CERTIFIED REGISTERED NURSE ANESTHETIST Unavailable + [phone] Brad Thacker MD Unavailable [phone] Reason for Visit * Reason Comments Medication Refill Encounter Details Date Type Department Care Team (Late st Contact Info) Description 11/21/2021 Refill [facility] #2 [place] [address] Brad Thacker MD #2 [place] [address] Medication Refill Social History Tobacco [...] System [facility] - Neurology - [place] #2 [place] [address] Keri Huynh APRN, CERTIFIED REGISTERED NURSE ANESTHETIST #2 [place] [address] 07/22/2025 9:00 AM CDT Procedure Visit [facility] - Neurology - [place] #2 [place] [address] Brad Thacker MD #2 [place] [address] documented as of this encounter Visit Diagnoses Diagnosis Muscle spasm Spasm of muscle documented in this encounter Care Teams Sales Representative Cash Registers Relationship Specialty Start Date End Date Duc Gore, [facility] [address] [place] [address] PCP - General Physician Pharmacogeneticist 10/21/16 Rubin Kessler MD [address] [place] [address] Consulting Physician Cardiovascular Disease - Cardiology 05/02/23 Keri Huynh APRN, CERTIFIED REGISTERED NURSE ANESTHETIST #2 [place] [address] Nurse Practitioner Advanced Practice Nurse 07/30/22 Brad Thacker MD #2 [place] [address] Consulting Physician Neurology 03/21/23 documented as of this encounter
--- OUTSIDE RECORDS SUMMARY | 2025-05-10 19:28 | XMS_ITS | Encounter Summary ---
Author Organization [facility] Address [address] [place] [address] Phone Care Team Providers Care Department Of Sociology Chair Name Role Phone Duc Gore Primary Care Provider [phone] Rubin Kessler MD Unavailable Keri Arreola APRN, CHIEF WELLNESS OFFICER Unavailable +- [phone] Brad Thacker MD Unavailable [phone] Reason for Visit * Reason Comments Medication Refill Encounter Details Date Type Department Care Team (Late st Contact Info) Description 01/23/2021 Refill [facility] - Neurology [facility] #1 [place] [address] Brad Thacker MD #2 [place] [address] Medication Refill Social History Tobacco [...] Info) Description 05/23/2025 2:00 PM CDT Telemedicine [facility] - Neurology - [place] #2 [place] [address] Keri Huynh APRN, CHIEF WELLNESS OFFICER #2 [place] [address] 07/22/2025 9:00 AM CDT Procedure Visit [facility] - Neurology - [place] #2 [place] [address] Brad Thacker MD #2 [place] [address] documented as of this encounter Visit Diagnoses Diagnosis Muscle spasm Spasm of muscle documented in this encounter Care Teams Department Of Sociology Chair Relationship Specialty Start Date End Date Duc Gore [facility] [address] [place] [address] PCP - General Physician Certified Composites Technician 10/21/16 Rubin Kessler MD [address] [place] [address] Consulting Physician Cardiovascular Disease - Cardiology 05/02/23 Keri Huynh APRN, CHIEF WELLNESS OFFICER #2 [place] [address] Nurse Practitioner Advanced Practice Nurse 07/30/22 Brad Thacker MD #2 [place] [address] Consulting Physician Neurology 03/21/23 documented as of this encounter
--- OUTSIDE RECORDS SUMMARY | 2025-05-10 19:28 | XMS_ITS | Encounter Summary ---
Author Organization [facility] Address [address] [place] [address] Phone Care Team Providers Care Senior Director Of Strategy Name Role Phone Duc Gore Primary Care Provider [phone] Rubin Kessler MD Unavailable Keri Arreola APRN, HOSPICE CARE CONSULTANT Unavailable +- [phone] Brad Thacker MD Unavailable [phone] Reason for Visit * Reason Comments Medication Refill Encounter Details Date Type Department Care Team (Late Contact Info) Description 07/22/2020 Refill [facility] - Neurology [facility] #1 [place] [address] Brad Thacker MD #2 [place] [address] Medication Refill Social History [...] 05/23/2025 2:00 PM CDT Telemedicine [facility] - Neurology - [place] #2 [place] [address] Keri Huynh APRN, HOSPICE CARE CONSULTANT #2 [place] [address] 07/22/2025 9:00 AM CDT Procedure Visit [facility] - Neurology - [place] #2 [place] [address] Brad Thacker MD #2 [place] [address] documented as of this encounter Visit Diagnoses Diagnosis Muscle spasm Spasm of muscle documented in this encounter Care Teams Senior Director Of Strategy Relationship Specialty Start Date End Date Duc Gore [facility] [address] [place] [address] PCP - General Physician Tie Puller 10/21/16 Rubin Kessler MD [address] [place] [address] Consulting Physician Cardiovascular Disease - Cardiology 05/02/23 Keri Huynh APRN, HOSPICE CARE CONSULTANT #2 [place] [address] Nurse Practitioner Advanced Practice Nurse 07/30/22 Brad Thacker MD #2 [place] [address] Consulting Physician Neurology 03/21/23 documented as of this encounter
--- OUTSIDE RECORDS SUMMARY | 2025-05-10 19:28 | XMS_ITS | Encounter Summary ---
Author Organization [facility] Address [address] [place] [address] Phone Care Team Providers Care Call Center Rn Name Role Phone Duc Gore Primary Care Provider Rubin Kessler MD Unavailable Keri Arreola APRN, HOLE DIGGER TRUCK DRIVER Unavailable + [phone] Brad Thacker MD Unavailable [phone] Reason for Visit * Reason Comments Medication Refill Encounter Details Date Type Department Care Team (Late st Contact Info) Description 04/29/2022 Refill [facility] #2 [place] [address] Brad Thacker MD #2 [place] [address] Medication Refill Social History Tobacco [...] Telemedicine [facility] - Neurology - [place] #2 [place] [address] Keri Huynh APRN, HOLE DIGGER TRUCK DRIVER #2 [place] [address] 07/22/2025 9:00 AM CDT Procedure Visit [facility] - Neurology - [place] #2 [place] [address] Brad Thacker MD #2 [place] [address] documented as of this encounter Visit Diagnoses Diagnosis Muscle spasm Spasm of muscle documented in this encounter Care Teams Call Center Rn Relationship Specialty Start Date End Date Duc Gore, [facility] [address] [place] [address] PCP - General Physician Correctional Maintenance Technician 10/21/16 Rubin Kessler MD [address] [place] [address] Consulting Physician Cardiovascular Disease - Cardiology 05/02/23 Keri Huynh APRN, HOLE DIGGER TRUCK DRIVER #2 [place] [address] Nurse Practitioner Advanced Practice Nurse 07/30/22 Brad Thacker MD #2 [place] [address] Consulting Physician Neurology 03/21/23 documented as of this encounter
--- OUTSIDE RECORDS SUMMARY | 2025-05-10 19:28 | XMS_ITS | Encounter Summary ---
Author Organization [facility] Address [address] [place] [address] Phone Care Team Providers Care Computing Tutor Name Role Phone Duc Gore Primary Care Provider [phone] Rubin Kessler MD Unavailable Keri Arreola APRN, DATACAP DEVELOPER Unavailable + [phone] Brad Thacker MD Unavailable [phone] Reason for Visit * Reason Comments Medication Refill Encounter Details Date Type Department Care Team (Late st Contact Info) Description 12/19/2021 Refill [facility] #2 [place] [address] Brad Thacker MD #2 [place] [address] Medication Refill Social History Tobacco [...] Description 05/23/2025 2:00 PM CDT Telemedicine [facility] - Neurology - [place] #2 [place] [address] Keri Huynh APRN, DATACAP DEVELOPER #2 [place] [address] 07/22/2025 9:00 AM CDT Procedure Visit [facility] - Neurology - [place] #2 [place] [address] Brad Thacker MD #2 [place] [address] documented as of this encounter Visit Diagnoses Diagnosis Muscle spasm Spasm of muscle documented in this encounter Care Teams Computing Tutor Relationship Specialty Start Date End Date Duc Gore, [facility] [address] [place] [address] PCP - General Physician Leadership Coach 10/21/16 Rubin Kessler MD [address] [place] [address] Consulting Physician Cardiovascular Disease - Cardiology 05/02/23 Keri Huynh APRN, DATACAP DEVELOPER #2 [place] [address] Nurse Practitioner Advanced Practice Nurse 07/30/22 Brad Thacker MD #[address] [place] [address] Consulting Physician Neurology 03/21/23 documented as of this encounter
--- OUTSIDE RECORDS SUMMARY | 2025-05-10 19:28 | XMS_ITS | Encounter Summary ---
Author Organization [facility] Address [address] [place] [address] Phone Care Team Providers Care Tail Edger Name Role Phone Duc Gore Primary Care Provider [phone] Rubin Kessler MD Unavailable Keri Arreola APRN, STILL CLEANER Unavailable +- [phone] Brad Thacker MD Unavailable [phone] Reason for Visit * Reason Comments Medication Refill Encounter Details Date Type Department Care Team (Late st Contact Info) Description 04/01/2022 Refill [facility] - Neurology [facility] #2 [place] [address] Brad Thacker MD #2 [place] [address] Medication Refill Social History Tobacco [...] Dept 07/06/21 Office Visit Keri Huynh APRN, STILL CLEANER [facility] Showing recent visits within past 365 days and meeting all other requirements Future Appointments No visits were found meeting these conditions. Showing future appointments within next 90 days and meeting all other requirements documented in this encounter Plan of Treatment Upcoming Encounters Date Type Department Care Team (Late st Contact Info) Description 05/23/2025 2:00 PM CDT Telemedicine [facility] Neurology - [place] #2 [place] [address] Keri Huynh APRN, STILL CLEANER #2 [place] [address] 07/22/2025 9:00 AM CDT Procedure Visit [facility] Neurology [facility] #2 [place] [address] Brad Thacker MD #2 [place] [address] documented as of this encounter Visit Diagnoses Diagnosis Muscle spasm Spasm of muscle documented in this encounter Care Teams Tail Edger Relationship Specialty Start Date End Date Duc Gore, [facility] [address] [place] [address] PCP - General Physician Fire Control Officer 10/21/16 Rubin Kessler MD [address] [place] [address] Consulting Physician Cardiovascular Disease - Cardiology 05/02/23 Keri Huynh APRN, STILL CLEANER #2 [place] [address] Nurse Practitioner Advanced Practice Nurse 07/30/22 Brad Thacker MD #2 [place] [address] Consulting Physician Neurology 03/21/23 documented as of this encounter
--- OUTSIDE RECORDS SUMMARY | 2025-05-10 19:28 | XMS_ITS | Encounter Summary ---
Author Organization [facility] Address [address] [place] [address] Phone Care Team Providers Care Asbestos Removal Supervisor Name Role Phone Duc Gore Primary Care Provider [phone] Rubin Kessler MD Unavailable Keri Arreola APRN, PAINT TRIMMER PIPE BOWLS Unavailable [phone] Brad Thacker MD Unavailable [phone] Reason for Visit * Reason Comments Medication Refill Encounter Details Date Type Department Care Team (Late st Contact Info) Description 05/27/2023 Refill [facility] - Neu[facility] #2 [place] [address] Keri Huynh, REGISTERED PUBLIC HEALTH NURSE, PAINT TRIMMER PIPE BOWLS #2 [place] [address] Medication Refill Social History Tobacco Use Types [...] Dept 03/21/23 Procedure Visit Brad Thacker MD [facility] Neurology [facility] 01/28/23 Office Visit Keri Huynh APRN, BRAD [facility] Neurology [facility] 07/30/22 Office Visit Keri Huynh APRN, BRAD [facility] Neurology [facility] Showing recent visits within past 365 days and meeting all other requirements Future Appointments Date Type Provider Dept 06/05/23 Appointment Keri Huynh APRN, CNS [facility] 06/13/23 Appointment Brad Thacker MD [facility] Neurology [facility] Showing future appointments within next 90 days and meeting all other requirements documented in this encounter Plan of Treatment Upcoming Encounters Date Type Department Care Team (Late st Contact Info) Description 05/23/2025 2:00 PM CDT Telemedicine [facility] - Neurology - [place] #2 [place] [address] Keri Huynh APRN, PAINT TRIMMER PIPE BOWLS #2 [place] [address] 07/22/2025 9:00 AM CDT Procedure Visit [facility] - Neurology - [place] #2 [place] [address] Brad Thacker MD #2 [place] [address] documented as of this encounter Visit Diagnoses Diagnosis Chronic migraine without aura, with intractable migraine, so stated, with status migrainosus documented in this encounter Care Teams Asbestos Removal Supervisor Relationship Specialty Start Date End Date Duc Gore [facility] [address] [place] [address] PCP - General Physician Environment Coordinator 10/21/16 Rubin Kessler MD [address] [place] [address] Consulting Physician Cardiovascular Disease - Cardiology 05/02/23 Keri Huynh, REGISTERED PUBLIC HEALTH NURSE, PAINT TRIMMER PIPE BOWLS #[address] [place] [address] Nurse Practitioner Advanced Practice Nurse 07/30/22 Brad Thacker MD #[address] [place] [address] Consulting Physician Neurology 03/21/23 documented as of this encounter
--- OUTSIDE RECORDS SUMMARY | 2025-05-10 19:28 | XMS_ITS | Encounter Summary ---
Author Organization [facility] Address [address] [place] [address] Phone Care Team Providers Care Vocational Instructor Name Role Phone Duc Gore Primary Care Provider [phone] Rubin Kessler MD Unavailable Keri Arreola APRN, MANAGEMENT MANAGER Unavailable +- [phone] Brad Thacker MD Unavailable [phone] Reason for Visit * Reason Comments Medication Refill Encounter Details Date Type Department Care Team (Late st Contact Info) Description 05/27/2023 Refill [facility] Neurology [facility] #2 [place] [address] Brad Thacker MD #2 [place] [address] Medication Refill Social History Tobacco [...] Dept 03/21/23 Procedure Visit Brad Thacker MD [facility] Neurology [facility] 01/28/23 Office Visit Keri Huynh APRN, BRAD [facility] Neurology [facility] 07/30/22 Office Visit Krei Huynh APRN, BRAD [facility] Neurology [facility] Showing recent visits within past 365 days and meeting all other requirements Future Appointments Date Type Provider Dept 06/05/23 Appointment Keri Huynh APRN, CNS [facility] Neurology [facility] 06/13/23 Appointment Brad Thacker MD [facility] Neurology [facility] Showing future appointments within next 90 days and meeting all other requirements documented in this encounter Plan of Treatment Upcoming Encounters Date Type Department Care Team (Late st Contact Info) Description 05/23/2025 2:00 PM CDT Telemedicine [facility] - Neurology - [place] #2 [place] [address] Keri Huynh APRN, MANAGEMENT MANAGER #2 [place] [address] 07/22/2025 9:00 AM CDT Procedure Visit [facility] - Neurology - [place] #2 [place] [address] Brad Thacker MD #2 [place] [address] documented as of this encounter Visit Diagnoses Diagnosis Muscle spasm Spasm of muscle documented in this encounter Care Teams Vocational Instructor Relationship Specialty Start Date End Date Duc Gore, [facility] [address] [place] [address] PCP - General Physician Product Safety Associate 10/21/16 Rubin Kessler MD [address] [place] [address] Consulting Physician Cardiovascular Disease - Cardiology 05/02/23 Keri Huynh APRN, MANAGEMENT MANAGER #2 [place] [address] Nurse Practitioner Advanced Practice Nurse 07/30/22 Brad Thacker MD #2 [place] [address] Consulting Physician Neurology 03/21/23 documented as of this encounter
--- OUTSIDE RECORDS SUMMARY | 2025-05-10 19:28 | XMS_ITS | Encounter Summary ---
Author Organization [facility] Address [address] [place] [address] Phone Care Team Providers Care Emergency Response Technician Name Role Phone Duc Gore Primary Care Provider [phone] Rubin Kessler MD Unavailable Keri Arreola APRN, PANCAKE PROFESSIONAL Unavailable +- [phone] Brad Thacker MD Unavailable [phone] Reason for Visit * Reason Comments Medication Refill Encounter Details Date Type Department Care Team (Late st Contact Info) Description 11/22/2020 Refill [facility] - Neurology [facility] #1 [place] [address] Brad Thacker MD #2 [place] [address] Medication Refill Social History Tobacco [...] Info) Description 05/23/2025 2:00 PM CDT Telemedicine [facility] - Neurology - [place] #2 [place] [address] Keri Huynh APRN, PANCAKE PROFESSIONAL #2 [place] [address] 07/22/2025 9:00 AM CDT Procedure Visit [facility] - Neurology - [place] #2 [place] [address] Brad Thacker MD #2 [place] [address] documented as of this encounter Visit Diagnoses Diagnosis Muscle spasm Spasm of muscle documented in this encounter Care Teams Emergency Response Technician Relationship Specialty Start Date End Date Duc Gore [facility] [address] [place] [address] PCP - General Physician Laydown Machine Operator 10/21/16 Rubin Kessler MD [address] [place] [address] Consulting Physician Cardiovascular Disease - Cardiology 05/02/23 Keri Huynh APRN, PANCAKE PROFESSIONAL #2 [place] [address] Nurse Practitioner Advanced Practice Nurse 07/30/22 Brad Thacker MD #[address] [place] [address] Consulting Physician Neurology 03/21/23 documented as of this encounter
--- OUTSIDE RECORDS SUMMARY | 2025-05-10 19:28 | XMS_ITS | Encounter Summary ---
Author Organization [facility] Address [address] [place] [address] Phone Care Team Providers Care Hotel Baggage Handler Name Role Phone Duc Gore Primary Care Provider [phone] Rubin Kessler MD Unavailable Keri Arreola APRN, BREAKER LAYER Unavailable + [phone] Brad Thacker MD Unavailable [phone] Reason for Visit * Reason Comments Medication Refill Encounter Details Date Type Department Care Team (Late st Contact Info) Description 02/26/[address] [facility] #2 [place] [address] Brad Thacker MD #2 [place] [address] Medication Refill Social History Tobacco [...] 05/23/2025 2:00 PM CDT Telemedicine [facility] - Neurology - [place] #2 [place] [address] Keri Huynh APRN, BREAKER LAYER #2 [place] [address] 07/22/2025 9:00 AM CDT Procedure Visit [facility] - Neurology - [place] #2 [place] [address] Brad Thacker MD #2 [place] [address] documented as of this encounter Visit Diagnoses Diagnosis Muscle spasm Spasm of muscle documented in this encounter Care Teams Hotel Baggage Handler Relationship Specialty Start Date End Date Duc Gore, [facility] [address] [place] [address] PCP - General Physician Manager Home Healthcare 10/21/16 Rubin Kessler MD [address] [place] [address] Consulting Physician Cardiovascular Disease - Cardiology 05/02/23 Keri Huynh APRN, BREAKER LAYER #[address] [place] [address] Nurse Practitioner Advanced Practice Nurse 07/30/22 Brad Thacker MD #2 [place] [address] Consulting Physician Neurology 03/21/23 documented as of this encounter
--- OUTSIDE RECORDS SUMMARY | 2025-05-10 19:28 | XMS_ITS | Encounter Summary ---
Author Organization [facility] Address [address] [place] [address] Phone Care Team Providers Care Risk Developer Name Role Phone Duc Gore Primary Care Provider Rubin Kessler MD Unavailable Keri Arreola APRN, ORCHARDIST Unavailable + [phone] Brad Thacker MD Unavailable [phone] Reason for Visit * Reason Comments Medication Refill Encounter Details Date Type Department Care Team (Late st Contact Info) Description 06/04/2022 Refill [facility] [address] [place] [address] Brad Thacker MD [address] [place] [address] Medication Refill Social History Tobacco [...] Info) Description 05/23/2025 2:00 PM CDT Telemedicine [facility] - Neurology - [place] [address] [place] [address] Keri Huynh APRN, ORCHARDIST [address] [place] [address] 07/22/2025 9:00 AM CDT Procedure Visit [facility] - Neurology - [place] [address] [place] [address] Brad Thacker MD [address] [place] [address] documented as of this encounter Visit Diagnoses Diagnosis Muscle spasm Spasm of muscle documented in this encounter Care Teams Risk Developer Relationship Specialty Start Date End Date Duc Gore, [facility] [address] [place] [address] PCP - General Physician Repairer [employer] 10/21/16 Rubin Kessler MD [address] [place] [address] Consulting Physician Cardiovascular Disease - Cardiology 05/02/23 Keri Huynh APRN, ORCHARDIST [address] [place] [address] Nurse Practitioner Advanced Practice Nurse 07/30/22 Brad Thacker MD [address] [place] [address] Consulting Physician Neurology 03/21/23 documented as of this encounter
--- OUTSIDE RECORDS SUMMARY | 2025-05-10 19:28 | XMS_ITS | Encounter Summary ---
Author Organization [facility] Address [address] [place] [address] Phone Care Team Providers Care Mortgage Or Loan Underwriter Name Role Phone Duc Gore Primary Care Provider [phone] Rubin Kessler MD Unavailable Keri Arreola APRN, ORDER PULLER Unavailable [phone]- [phone] Brad Thacker MD Unavailable [phone] Reason for Visit * Reason Comments Medication Refill Encounter Details Date Type Department Care Team (Late st Contact Info) Description 09/16/[address] [facility] [address] [place] [address] Brad Thacker MD [address] [place] [address] [...] 05/23/2025 2:00 PM CDT Telemedicine [facility] - Neurology - [place] [address] [place] [address] Keri Huynh APRN, ORDER PULLER [address] [place] [address] 07/22/2025 9:00 AM CDT Procedure Visit [facility] - Neurology - [place] [address] [place] [address] Brad Thacker MD [address] [place] [address] documented as of this encounter Visit Diagnoses Diagnosis Muscle spasm Spasm of muscle documented in this encounter Care Teams Mortgage Or Loan Underwriter Relationship Specialty Start Date End Date Duc Gore, [facility] [address] [place] [address] PCP - General Physician Tool Grinding Technician 10/21/16 Rubin Kessler MD [address] [place] [address] Consulting Physician Cardiovascular Disease - Cardiology 05/02/23 Keri Huynh APRN, ORDER PULLER [address] [place] [address] Nurse Practitioner Advanced Practice Nurse 07/30/22 Brad Thacker MD [address] [place] [address] Consulting Physician Neurology 03/21/23 documented as of this encounter
--- OUTSIDE RECORDS SUMMARY | 2025-05-10 19:28 | XMS_ITS | Encounter Summary ---
Author Organization [facility] Address [address] [place] [address] Phone Care Team Providers Care Doweling Machine Operator Name Role Phone Duc Gore Primary Care Provider [phone] Rubin Kessler MD Unavailable Keri Arreola APRN, PEANUT SHAKER Unavailable [phone]- [phone] Brad Thacker MD Unavailable [phone] Reason for Visit * Reason Comments Medication Refill Encounter Details Date Type Department Care Team (Late Contact Info) Description 05/20/2020 [facility]ill [facility] - [facility] [address] [place] [address] Brad Thacker MD [address] [place] [address] Medication Refill Social History Tobacco [...] Info) Description 05/23/2025 2:00 PM CDT Telemedicine [facility] - Neurology - [place] [address] [place] [address] Keri uHynh APRN, PEANUT SHAKER [address] [place] [address] 07/22/2025 9:00 AM CDT Procedure Visit [facility] - Neurology - [place] [address] [place] [address] Brad Thacker MD [address] [place] [address] documented as of this encounter Visit Diagnoses Not on filedocumented in this encounter Care Teams Doweling Machine Operator Relationship Specialty Start Date End Date Duc Gore, [facility] [address] [place] [address] PCP - General Physician Client Relationship Consultant 10/21/16 Rubin Kessler MD [address] [place] [address] Consulting Physician Cardiovascular Disease - Cardiology 05/02/23 Keri Huynh APRN, PEANUT SHAKER [address] [place] [address] Nurse Practitioner Advanced Practice Nurse 07/30/22 Brad Thacker MD [address] [place] [address] Consulting Physician Neurology 03/21/23 documented as of this encounter
--- OUTSIDE RECORDS SUMMARY | 2025-05-10 19:28 | XMS_ITS | Encounter Summary ---
Author Organization [facility] Address [address] [place] [address] Phone Care Team Providers Care Biology Adjunct Instructor Name Role Phone Duc Gore Primary Care Provider [phone] Rubin Kessler MD Unavailable Keri Arreola APRN, SUPERINTENDENT LOCAL Unavailable [phone] Brad Thacker MD Unavailable Reason for Visit * Reason Comments Medication Refill Encounter Details Date Type Department Care Team (Late st Contact Info) Description 10/06/2023 Refill [facility] - Neurology [facility] [address] [place] [address] Keri Huynh, LOGISTICS ACCOUNT MANAGER, SUPERINTENDENT LOCAL [address] [place] [address] Medication Refill Social History Tobacco Use Types [...] Dept 09/12/23 Procedure Visit Brad Thacker MD [facility] Neurology [facility] 06/13/23 Procedure Visit Brad Thacker, [facility] 06/05/23 Office Visit Keri Huynh APRN, CNS [facility] 03/21/23 Procedure Visit Brad Thacker MD [facility] Neurology [facility] 01/28/23 Office Visit Keri Huynh APRN, BRAD [facility] Showing recent visits within past 365 days and meeting all other requirements Future Appointments Date Type Provider Dept 10/30/23 Appointment Keri Huynh APRN, CNS [facility] 12/12/23 Appointment Brad Thacker MD [facility] Showing future appointments within next 90 days and meeting all other requirements HOUSE LOGISTICS MANAGER documented in this encounter Plan of Treatment Upcoming Encounters Date Type Department Care Team (Late st Contact Info) Description 05/23/2025 2:00 PM CDT Telemedicine [facility] - Neurology - [place] [address] [place] [address] Keri Huynh APRN, SUPERINTENDENT LOCAL [address] [place] [address] 07/22/2025 9:00 AM CDT Procedure Visit [facility] - Neurology - [place] [address] [place] [address] Brad Thacker MD [address] [place] [address] documented as of this encounter Visit Diagnoses Diagnosis Muscle spasm Spasm of muscle documented in this encounter Care Teams Biology Adjunct Instructor Relationship Specialty Start Date End Date Duc Gore, [facility] [address] [place] [address] PCP - General Physician Ebd Special Education Teacher 10/21/16 Rubin Kessler MD [address] [place] [address] Consulting Physician Cardiovascular Disease - Cardiology 05/02/23 Keri Huynh APRN, SUPERINTENDENT LOCAL [address] [place] [address] Nurse Practitioner Advanced Practice Nurse 07/30/22 Brad Thacker MD [address] [place] [address] Consulting Physician Neurology 03/21/23 documented as of this encounter
--- OUTSIDE RECORDS SUMMARY | 2025-05-10 19:28 | XMS_ITS | Encounter Summary ---
Author Organization [facility] Address [address] [place] [address] Phone Care Team Providers Care Veterinary Pharmacologist Name Role Phone Duc Gore Primary Care Provider [phone] Rubin Kessler MD Unavailable Keri Arreola APRN, AUDIOLOGY DIRECTOR Unavailable + [phone] Brad Thacker MD Unavailable [phone] Reason for Visit * Reason Comments Medication Refill Encounter Details Date Type Department Care Team (Late st Contact Info) Description 07/06/2022 Refill [facility] [place] [facility] [address] [place] [address] Brad Thacker MD [address] [place] [address] Medication Refill Social History Tobacco [...] Telemedicine [facility] - Neurology - [place] [address] [place] [address] Keri Huynh APRN, AUDIOLOGY DIRECTOR [address] [place] [address] 07/22/2025 9:00 AM CDT Procedure Visit [facility] - Neurology - [place] [address] [place] [address] Brad Thacker MD [address] [place] [address] documented as of this encounter Visit Diagnoses Diagnosis Muscle spasm Spasm of muscle documented in this encounter Care Teams Veterinary Pharmacologist Relationship Specialty Start Date End Date Duc Gore, [facility] [address] [place] [address] PCP - General Physician Licensed Clinician 10/21/16 Rubin Kessler MD [address] [place] [address] Consulting Physician Cardiovascular Disease - Cardiology 05/02/23 Keri Huynh APRN, AUDIOLOGY DIRECTOR [address] [place] [address] Nurse Practitioner Advanced Practice Nurse 07/30/22 Brad Thacker MD [address] [place] [address] Consulting Physician Neurology 03/21/23 documented as of this encounter
--- OUTSIDE RECORDS SUMMARY | 2025-05-10 19:28 | XMS_ITS | Encounter Summary ---
Author Organization [facility] Address [address] [place] [address] Phone Care Team Providers Care Capsule Filling Machine Operator Name Role Phone Duc Gore Primary Care Provider Rubin Kessler MD Unavailable Keri Arreola APRN, CENTER REP Unavailable + [phone] Brad Thacker MD Unavailable [phone] Reason for Visit * Reason Comments Medication Refill Encounter Details Date Type Department Care Team (Late st Contact Info) Description 12/09/2022 Refill [facility] - Neurology [facility] [address] [place] [address] Brad Thacker MD [address] [place] [address] Medication Refill Social History Tobacco [...] Dept 07/30/22 Office Visit Keri Huynh APRN, CENTER REP [facility] Neurology [place] [facility] Showing recent visits within past 365 days and meeting all other requirements Future Appointments Date Type Provider Dept 01/28/23 Appointment Keri Huynh APRN, CENTER REP [facility] [place] Showing future appointments within next 90 days and meeting all other requirements AR MAN documented in this encounter Plan of Treatment Upcoming Encounters Date Type Department Care Team (Late st Contact Info) Description 05/23/2025 2:00 PM CDT Telemedicine [facility] Neurology - [place] [address] [place] [address] Keri Huynh APRN, CENTER REP [address] [place] [address] 07/22/2025 9:00 AM CDT Procedure Visit [facility] Neurology [facility] [address] [place] [address] Brad Thacker MD [address] [place] [address] documented as of this encounter Visit Diagnoses Diagnosis Muscle spasm Spasm of muscle documented in this encounter Care Teams Capsule Filling Machine Operator Relationship Specialty Start Date End Date Duc Gore, PAC [address] [place] [address] PCP - General Physician Engraver [employer] 10/21/16 Rubin Kessler MD [address] [place] [address] Consulting Physician Cardiovascular Disease - Cardiology 05/02/23 Keri Huynh, SENIOR MOBILE WEB DEVELOPER, CENTER REP [address] [place] [address] Nurse Practitioner Advanced Practice Nurse 07/30/22 Brad Thacker MD [address] [place] [address] Consulting Physician Neurology 03/21/23 documented as of this encounter
--- NOTE | 2025-05-10 19:38 | PC.NURSE ---
PATIENT AMBULATED TO THE BATHROOM WITH ASSISTANCE OF SIGNIFICANT OTHER
[2025-05-10 19:45] LABS: Anion Gap 9 mmol/L (4-12); Blood Urea Nitrogen 12 mg/dL (7-17); Calcium 9.5 mg/dL (8.4-10.2); Carbon Dioxide 22 mmol/L (22-30); Chloride 109 mmol/L (98-107); Estimated CRCL calculation 77 ml/min; Estimated Glomerular Filt Rate > 60; Glucose 108 mg/dL (65-110); Osmolality Calculated 290 mOsm/kg (285-295); Potassium 3.8 mmol/L (3.4-5.0); Sodium 140 mmol/L (137-145)
--- NOTE | 2025-05-10 19:58 | PC.NURSE ---
PATIENT REPORTS THAT SHE IS FEELING MUCH BETTER AND IS READY TO GO HOME. DENIES ANY NEEDS
[2025-05-10 20:26] VITALS: BP 132/84; PULSE 84; RESP 16; O2SAT 99
== END 2025-05-10 20:26 | disposition home or self-care (01) ==
PROVIDERS: Emergency Provider Emergency Medicine; PCP Physician Assistant
DX: G43.909 Migraine, unspecified, not intractable, without status migrainosus (principal)
CPT/HCPCS: 36415; 80048; 96361; 96374; 96375; 99284; J1200; J2405; J2765; J7030